=== PATIENT | male | born 1940 | race Caucasian/White ===

== ENCOUNTER → 2016-08-26 | Outpatient (CLI) | payer MEDICARE ==
[~2016-08-26] MED LIST: ASCO500T20 PO; ASP325T PO; BICA50TA PO; CARV6.252 PO; DOCU100C37 PO; E400C PO; FLUO20CA42 PO; HYDR25TA4 PO; LOSA1TAB3 PO; LUTE40CA PO; MULT-608 PO; NFAMINITAB PO; OMEG1CAP51 PO; SMV20T PO; WARF-48 PO; WARF7.5T49 PO
--- OUTSIDE RECORDS SUMMARY | 2016-08-26 13:06 | XMS REPORT | Continuity of Care Document ---
Author Author Interface Organization Interface Address Unknown Phone Unavailable Problems Problem Status Onset Date Classification Date Reported Comments Source No data available for this section Problem 08/24/2016 [facility]. No data available for this section Problem 03/20/2016 [facility]. Paroxysmal atrial fibrillation (disorder) 03/29/2016 Diagnosis 04/02/2016 [facility]. Moderate chronic obstructive pulmonary disease (disorder) 03/29/2016 Diagnosis 04/02/2016 [facility]. Solitary nodule of lung (finding) 03/29/2016 Diagnosis [facility]. Standard chest X-ray abnormal (finding) 03/29/2016 Diagnosis 04/02/2016 [facility]. Elevated diaphragm (disorder) 04/06/2016 Diagnosis 2015 [facility]. Standard chest X-ray abnormal (finding) 04/06/2016 Diagnosis 04/10/2016 [facility]. Obstructive sleep apnea syndrome (disorder) 04/06/2016 Diagnosis 04/10/2016 [facility]. Dyspnea (finding) 2015 Diagnosis 04/10/2016 [facility]. Degenerative disorder of macula (disorder) 01/05/2016 Diagnosis 01/09/2016 [facility]. Dyspnea (finding) 2015 Diagnosis 01/09/2016 [facility]. Malignant tumor of prostate (disorder) 01/05/2016 Diagnosis 01/09/2016 [facility]. Benign essential hypertension (disorder) 01/05/2016 Diagnosis 01/09/2016 [facility]. Obstructive sleep apnea syndrome (disorder) 01/05/2016 Diagnosis 01/09/2016 [facility]. Pulmonary embolism (disorder) 01/05/2016 Diagnosis 2015 [facility]. Coronary arteriosclerosis (disorder) 01/05/2016 Diagnosis 01/09/2016 [facility]. Abdominal aortic aneurysm (disorder) 01/05/2016 Diagnosis 01/09/2016 [facility]. Coronary arteriosclerosis (disorder) 03/21/2016 Diagnosis 03/25/2016 [facility]. Malignant tumor of prostate (disorder) 03/21/2016 Diagnosis 03/25/2016 [facility]. Benign essential hypertension (disorder) 03/21/2016 Diagnosis 03/25/2016 [facility]. Acute upper respiratory infection (disorder) 07/20/2016 Diagnosis 07/24/2016 [facility]. Medications Medication Details Route Status Patient Instructions Ordering Provider Order Date Source No Known Medications No known medications Active [facility]. Allergies, Adverse Reactions, Alerts Substance Category Reaction Severity Reaction type Status Date Reported Comments Source Immunizations Immunization Date Given Site Status Last Updated Comments Source No data available for this section No data available for this section [facility]. influenza virus vaccine 03/21/2016 [facility] influenza virus vaccine [facility]. influenza virus vaccine 03/21/2016 [facility] influenza virus vaccine [facility]. No data available for this section No data available for this section [facility]. influenza virus vaccine 03/21/2016 Right [facility] influenza virus vaccine [facility]. Results Order Name Results Value Reference Range Date Interpretation Comments Source Vital Signs Vital Sign Value Date Comments Source Encounters Location Location Details Encounter Type Encounter Number Reason For Visit Attending Provider ADM Date DC Date Status Source CPM [id number] Clinic ( Outpatient) [id number] Vasu Cui 01/05/2016 Active [facility] CPM [id number] Clinic ( Outpatient) [id number] 01/05/2016 Active [facility] [id number] Clinic ( Outpatient) [id number] Vasu Cui 02/23/2016 Active [facility] CPM [id number] Clinic ( Outpatient) [id number] Vasu Cui 02/23/2016 Active [facility]PM [id number] Clinic ( Outpatient) [id number] Vasu Cui 03/29/2016 Active [facility] [id number] Clinic ( Outpatient) [id number] Jorge Luis Anguiano 03/16/2016 Active [facility] [id number] Clinic ( Outpatient) [id number] Jorge Luis Anguiano 03/21/2016 Active [facility] [id number] Clinic ( Outpatient) [id number] Jorge Luis Anguiano 09/12/2016 Active [facility]PM [id number] Clinic ( Outpatient) [id number] Irby Staples 10/11/2016 Active [facility] [id number] Clinic ( Outpatient) [id number] Irby Staples 08/18/2016 Active [facility] [id number] Outpatient [id number] Vasu Cui 01/05/2016 01/05/2016 Active [facility] [id number] Outpatient [id number] Vasu Cui 03/15/2016 03/15/2016 Active [facility] [id number] Day Surgery [id number] Irby Staples 04/06/2016 04/06/2016 Active [facility] [id number] Vasu Cui 02/23/2016 01/06/2016 [facility] [id number] Vasu Cui 03/29/2016 03/30/2016 [facility] Out[facility] [id number] Irby Staples 04/06/2016 04/07/2016 [facility] [id number] Vasu Cui 01/05/2016 01/06/2016 [facility] [id number] Vasu Cui 03/15/2016 03/17/2016 [facility]. [facility] [id number] Jorge Luis Anguiano 03/21/2016 03/22/2016 [facility]. [facility] Cancel/No Show [id number] Vasu Cui 02/23/2016 02/23/2016 [facility]. [facility] Outpatient [id number] Vasu Cui 01/05/2016 01/06/2016 [facility] Cancel/No Show [id number] 01/05/2016 01/05/2016 [facility]. [facility] CD:[id number] Clinic ( Outpatient) [id number] Jorge Luis Anguiano 07/20/2016 Active [facility] Cancel/No Show [id number] Irby Staples 08/18/2016 08/20/2016 [facility] [id number] Jorge Luis Anguiano 07/20/2016 07/21/2016 [facility] Procedures Procedure Code Date Perfomer Comments Source No data available for this section [facility]. Bronchoscopy With Possible Biopsies 04/06/2016 [facility]. Pacemaker implant 2010 [facility]. prostate surgery 04/26/2010 [facility]. UPPP [facility]. open heart 12/25/2010 [facility].
[2016-08-26 13:17] LABS: BASOPHILS % (AUTO) 0 % (0-10); EOSINOPHILS # (AUTO) 0.2 10^3/uL (0.0-0.3); EOSINOPHILS % (AUTO) 3 % (0-10); LYMPHOCYTES # (AUTO) 1.2 X 10^3 (1.0-4.0); LYMPHOCYTES % (AUTO) 23 % (12-44); MEAN CORPUSCULAR HEMOGLOBIN 32 PG (25-34); MEAN CORPUSCULAR HGB CONC 34 G/DL (32-36); MEAN CORPUSCULAR VOLUME 94 FL (80-99); MEAN PLATELET VOLUME 8.7 FL (7.4-10.4); MONOCYTES # (AUTO) 0.5 X 10^3 (0.0-1.0); MONOCYTES % (AUTO) 10 % (0-12); NEUTROPHILS # (AUTO) 3.3 X 10^3 (1.8-7.8); NEUTROPHILS % (AUTO) 64 % (42-75); PLATELET COUNT 146 10^3/uL (130-400); RED BLOOD COUNT 4.23 10^6/uL (4.35-5.85); RED CELL DISTRIBUTION WIDTH 13.8 % (10.0-14.5); WHITE BLOOD COUNT 5.1 10^3/uL (4.3-11.0)
[2016-08-26 13:37] LABS: ALANINE AMINOTRANSFERASE 14 U/L (0-55); ALBUMIN 3.9 G/DL (3.2-4.5); ANION GAP 10 MMOL/L (5-14); ASPARTATE AMINO TRANSFERASE 20 U/L (5-34); BILIRUBIN,TOTAL 0.6 MG/DL (0.1-1.0); BLOOD UREA NITROGEN 23 MG/DL (7-18); BUN/CREATININE RATIO 22; CALCIUM 9.3 MG/DL (8.5-10.1); CARBON DIOXIDE 27 MMOL/L (21-32); CHLORIDE 105 MMOL/L (98-107); CREATININE SERUM 1.06 MG/DL (0.60-1.30); GFR ESTIMATED > 60; GLUCOSE 106 MG/DL (70-105); POTASSIUM 4.1 MMOL/L (3.6-5.0); SODIUM 142 MMOL/L (135-145); TOTAL PROTEIN 7.1 G/DL (6.4-8.2)
== END ==
LOC: EDSTATUS 05-25 12:59 → ONC 13:01
PROVIDERS: ATTEND Internal Medicine Hematology & Oncology
DX: C61 Malignant neoplasm of prostate (principal); C77.9 Secondary and unspecified malignant neoplasm of lymph node, unspecified; D64.9 Anemia, unspecified; I72.3 Aneurysm of iliac artery; Z79.899 Other long term (current) drug therapy
CPT/HCPCS: 36415; 80053; 84153; 85025

== ENCOUNTER → 2016-08-30 | Outpatient (CLI) | payer MEDICARE | LOC: FS 13:27 | PROVIDERS: ATTEND Internal Medicine Hematology & Oncology | DX: C61 Malignant neoplasm of prostate (principal); C77.9 Secondary and unspecified malignant neoplasm of lymph node, unspecified; D64.9 Anemia, unspecified; I72.3 Aneurysm of iliac artery; I10 Essential (primary) hypertension; Z79.899 Other long term (current) drug therapy; Z79.01 Long term (current) use of anticoagulants | CPT/HCPCS: 96402; 99213 ==

== ENCOUNTER → 2016-11-22 | Outpatient (CLI) | payer MEDICARE ==
[~2016-11-22] MED LIST changes: +LEUPROLIDE 45 MG ELIGARD SUSP SQ SCH
== END ==
LOC: FS 13:46
PROVIDERS: ATTEND Internal Medicine Hematology & Oncology
DX: C61 Malignant neoplasm of prostate (principal); C77.9 Secondary and unspecified malignant neoplasm of lymph node, unspecified; D64.9 Anemia, unspecified; I72.3 Aneurysm of iliac artery; I10 Essential (primary) hypertension; Z79.899 Other long term (current) drug therapy; Z79.01 Long term (current) use of anticoagulants
CPT/HCPCS: 96402; 99213

== ENCOUNTER → 2017-05-10 | Outpatient (CLI) | payer MEDICARE ==
[2017-05-10 11:14] LABS: BASOPHILS % (AUTO) 0 % (0-10); EOSINOPHILS # (AUTO) 0.2 10^3/uL (0.0-0.3); EOSINOPHILS % (AUTO) 4 % (0-10); LYMPHOCYTES # (AUTO) 1.2 X 10^3 (1.0-4.0); LYMPHOCYTES % (AUTO) 26 % (12-44); MEAN CORPUSCULAR HEMOGLOBIN 31 PG (25-34); MEAN CORPUSCULAR HGB CONC 33 G/DL (32-36); MEAN CORPUSCULAR VOLUME 94 FL (80-99); MONOCYTES # (AUTO) 0.4 X 10^3 (0.0-1.0); MONOCYTES % (AUTO) 9 % (0-12); NEUTROPHILS # (AUTO) 2.8 X 10^3 (1.8-7.8); NEUTROPHILS % (AUTO) 61 % (42-75); PLATELET COUNT 118 10^3/uL (130-400); RED BLOOD COUNT 3.97 10^6/uL (4.35-5.85); RED CELL DISTRIBUTION WIDTH 14.9 % (10.0-14.5); WHITE BLOOD COUNT 4.6 10^3/uL (4.3-11.0)
[2017-05-10 11:35] LABS: ALANINE AMINOTRANSFERASE 19 U/L (0-55); ALBUMIN 3.5 GM/DL (3.2-4.5); ANION GAP 7 MMOL/L (5-14); ASPARTATE AMINO TRANSFERASE 22 U/L (5-34); BILIRUBIN,TOTAL 0.8 MG/DL (0.1-1.0); BLOOD UREA NITROGEN 16 MG/DL (7-18); BUN/CREATININE RATIO 17; CALCIUM 9.1 MG/DL (8.5-10.1); CARBON DIOXIDE 28 MMOL/L (21-32); CHLORIDE 105 MMOL/L (98-107); CREATININE SERUM 0.92 MG/DL (0.60-1.30); GFR ESTIMATED > 60; GLUCOSE 124 MG/DL (70-105); SODIUM 140 MMOL/L (135-145); TOTAL PROTEIN 6.7 GM/DL (6.4-8.2)
== END ==
LOC: ONC 10:55
PROVIDERS: ATTEND Internal Medicine Hematology & Oncology
DX: C61 Malignant neoplasm of prostate (principal)
CPT/HCPCS: 36415; 80053; 84153; 85025; 96402

== ENCOUNTER → 2017-10-03 | Outpatient (CLI) | payer MEDICARE | LOC: ONC 14:12 | PROVIDERS: ATTEND Internal Medicine Hematology & Oncology | DX: C61 Malignant neoplasm of prostate (principal); C77.9 Secondary and unspecified malignant neoplasm of lymph node, unspecified; D64.9 Anemia, unspecified; I10 Essential (primary) hypertension; Z79.01 Long term (current) use of anticoagulants; Z79.899 Other long term (current) drug therapy | CPT/HCPCS: 99213 ==

== ENCOUNTER 2017-10-24 09:25 | Outpatient (RCR) | payer MEDICARE ==
[~2017-10-24 09:25] MED LIST changes: -BICA50TA PO; +BICA50TA5 PO; -LEUPROLIDE 45 MG ELIGARD SUSP SQ SCH
[2017-10-24] MEDS ORDERED: LEUPROLIDE 45 MG ELIGARD SUSP SQ SCH (09:30)
== END 2018-01-22 | disposition home or self-care (01) ==
LOC: ONC 09:25
PROVIDERS: ATTEND Internal Medicine Hematology & Oncology
DX: C61 Malignant neoplasm of prostate (principal); C77.9 Secondary and unspecified malignant neoplasm of lymph node, unspecified; D64.9 Anemia, unspecified; I10 Essential (primary) hypertension; Z79.01 Long term (current) use of anticoagulants; Z79.899 Other long term (current) drug therapy
CPT/HCPCS: 96402

== ENCOUNTER 2018-04-26 09:41 | Outpatient (RCR) | payer MEDICARE ==
[~2018-04-26 09:41] MED LIST changes: +LEUPROLIDE 45 MG ELIGARD SUSP SQ SCH
== END 2018-07-25 | disposition home or self-care (01) ==
LOC: ONC 09:41
PROVIDERS: ATTEND Internal Medicine Hematology & Oncology
DX: C61 Malignant neoplasm of prostate (principal); C77.9 Secondary and unspecified malignant neoplasm of lymph node, unspecified; D69.6 Thrombocytopenia, unspecified; D64.9 Anemia, unspecified; I10 Essential (primary) hypertension; Z79.01 Long term (current) use of anticoagulants; Z79.899 Other long term (current) drug therapy
CPT/HCPCS: 36415; 84153; 96402

== ENCOUNTER → 2018-10-04 | Outpatient (CLI) | payer MEDICARE ==
[~2018-10-04] MED LIST changes: +CATHETER FLUSH 10 ML SYR IV PRN; +HOLD METFORMIN - RECEIVED CONTRAST 20 ML VIAL IV SCH; +IOHEXOL 350 MG/ML 100 ML (OMNIPAQUE 350) VIAL IV ONE; -LEUPROLIDE 45 MG ELIGARD SUSP SQ SCH; +NS 50 ML (IVPB) BAG IV ONE
--- NOTE | 2018-10-04 15:32 | Diagnostic Imaging Report ---
PROCEDURE: CT abdomen with and without contrast. TECHNIQUE: Multiple contiguous axial CT images of the abdomen were obtained prior to and after intravenous administration of iodinated contrast. Auto Exposure Controls were utilized during the CT exam to meet ALARA standards for radiation dose reduction. INDICATION: Elevated liver enzymes. COMPARISON: Comparison made with prior examination from 05/18/2015. FINDINGS: There is some left basilar subsegmental atelectasis and/or pneumonitis. There is a trace left pleural effusion. The liver is normal in size and without focal lesions. The gallbladder is unremarkable. There is no biliary ductal dilatation. Spleen is normal. The pancreas and adrenal glands are unremarkable. There is a right renal cyst. There is a stent graft in the abdominal aorta. The aneurysm sac has increased in size since the prior examination and now measures 5.2 cm just above the aortic bifurcation. This is compared to the previous measurement of 4 cm. There is no free air. There is no ascites. There are no focal inflammatory changes. There are degenerative changes in the spine. IMPRESSION: Minimal left basilar subsegmental atelectasis and/or pneumonitis and a trace left pleural effusion. Interval increase in size of the aortic aneurysm sac just above the aortic bifurcation up to 5.2 cm. This is compared to the previous measurement of 4 cm. Small or slow endoleak cannot be excluded. Recommend clinical correlation. Small bilateral renal cysts. No other acute abnormality in the abdomen or pelvis. Dictated by: Dictated on workstation # [id number]
== END ==
LOC: RAD FS 11:03
PROVIDERS: ATTEND Family Medicine
DX: R74.8 Abnormal levels of other serum enzymes (principal)
CPT/HCPCS: 74170

== ENCOUNTER → 2018-10-24 | Outpatient (CLI) | payer MEDICARE ==
[~2018-10-24] MED LIST changes: -CATHETER FLUSH 10 ML SYR IV PRN; -HOLD METFORMIN - RECEIVED CONTRAST 20 ML VIAL IV SCH; -IOHEXOL 350 MG/ML 100 ML (OMNIPAQUE 350) VIAL IV ONE; -NS 50 ML (IVPB) BAG IV ONE
[2018-10-24 09:30] LABS: INR 1.7 (0.8-1.4); PROTHROMBIN TIME PATIENT 20.4 SEC (12.2-14.7)
== END ==
LOC: LAB 08:59
PROVIDERS: ATTEND Family Medicine
DX: Z51.81 Encounter for therapeutic drug level monitoring (principal); Z79.01 Long term (current) use of anticoagulants; Z79.899 Other long term (current) drug therapy
CPT/HCPCS: 36415; 85610

== ENCOUNTER → 2018-11-29 | Outpatient (CLI) | payer MEDICARE ==
--- NOTE | 2018-11-29 16:19 | Diagnostic Imaging Report ---
INDICATION: Atherosclerotic disease. TECHNIQUE: Grayscale, color-flow, and duplex Doppler evaluation of bilateral upper extremity arterial systems was performed. FINDINGS: Predominantly triphasic waveforms throughout the right upper extremity arterial system are seen with the exception of biphasic waveforms in the distal radial artery. Velocities appear to be normal. There are predominantly biphasic waveforms in the left upper extremity arterial system apart from a segment of monophasic flow in the proximal brachial artery. Velocities appear to be normal throughout the left upper extremity arterial system. No high-grade stenosis or occlusion is identified. IMPRESSION: Essentially unremarkable bilateral upper extremity arterial Doppler. Dictated by: Dictated on workstation # [id number]
== END ==
LOC: RAD FS 08:59
PROVIDERS: ATTEND Family Medicine
DX: I25.10 Atherosclerotic heart disease of native coronary artery without angina pectoris (principal)
CPT/HCPCS: 93930

== ENCOUNTER 2019-05-02 09:47 | Outpatient (RCR) | payer MEDICARE ==
[~2019-05-02 09:47] MED LIST changes: +LEUPROLIDE 45 MG ELIGARD SQ SCH
[2019-05-02 10:01] LABS: BASOPHILS % (AUTO) 0 % (0-10); EOSINOPHILS # (AUTO) 0.2 10^3/uL (0.0-0.3); EOSINOPHILS % (AUTO) 3 % (0-10); HEMATOCRIT 38 % (40-54); HEMOGLOBIN 12.6 G/DL (13.3-17.7); LYMPHOCYTES # (AUTO) 1.2 X 10^3 (1.0-4.0); LYMPHOCYTES % (AUTO) 19 % (12-44); MEAN CORPUSCULAR HEMOGLOBIN 32 PG (25-34); MEAN CORPUSCULAR HGB CONC 33 G/DL (32-36); MEAN CORPUSCULAR VOLUME 95 FL (80-99); MEAN PLATELET VOLUME 8.5 FL (7.4-10.4); MONOCYTES # (AUTO) 0.6 X 10^3 (0.0-1.0); MONOCYTES % (AUTO) 9 % (0-12); NEUTROPHILS # (AUTO) 4.4 X 10^3 (1.8-7.8); NEUTROPHILS % (AUTO) 69 % (42-75); PLATELET COUNT 109 10^3/uL (130-400); RED CELL DISTRIBUTION WIDTH 13.6 % (10.0-14.5); WHITE BLOOD COUNT 6.4 10^3/uL (4.3-11.0)
[2019-05-02 10:21] LABS: ALANINE AMINOTRANSFERASE 13 U/L (0-55); ALBUMIN 3.7 GM/DL (3.2-4.5); ALKALINE PHOSPHATASE 243 U/L (40-136); BILIRUBIN,TOTAL 0.6 MG/DL (0.1-1.0); BUN/CREATININE RATIO 17; CALCIUM 9.2 MG/DL (8.5-10.1); CARBON DIOXIDE 28 MMOL/L (21-32); CHLORIDE 106 MMOL/L (98-107); CREATININE SERUM 1.03 MG/DL (0.60-1.30); GFR ESTIMATED > 60; GLUCOSE 132 MG/DL (70-105); POTASSIUM 4.4 MMOL/L (3.6-5.0); SODIUM 141 MMOL/L (135-145); TOTAL PROTEIN 6.7 GM/DL (6.4-8.2)
== END 2019-07-31 | disposition home or self-care (01) ==
LOC: ONC 09:47
PROVIDERS: ATTEND Internal Medicine Hematology & Oncology
DX: C61 Malignant neoplasm of prostate (principal); C77.9 Secondary and unspecified malignant neoplasm of lymph node, unspecified; D69.6 Thrombocytopenia, unspecified; D64.9 Anemia, unspecified; I10 Essential (primary) hypertension; Z79.01 Long term (current) use of anticoagulants; Z79.899 Other long term (current) drug therapy
CPT/HCPCS: 36415; 80053; 84153; 85025; 96402

== ENCOUNTER → 2019-11-21 | Outpatient (CLI) | payer MEDICARE ==
[~2019-11-21] MED LIST changes: +LEVO750T9 PO
== END ==
LOC: EDSTATUS 08-01 14:48 → ONC 09:57
PROVIDERS: ATTEND Internal Medicine Hematology & Oncology
DX: C61 Malignant neoplasm of prostate (principal); C77.9 Secondary and unspecified malignant neoplasm of lymph node, unspecified; D69.6 Thrombocytopenia, unspecified; D64.9 Anemia, unspecified; I10 Essential (primary) hypertension; Z79.01 Long term (current) use of anticoagulants; Z79.899 Other long term (current) drug therapy
CPT/HCPCS: 84153; 96402

== ENCOUNTER 2019-11-22 12:17 | Emergency (ER) | payer MEDICARE ==
[~2019-11-22] VITALS: Ht 185.4 cm; Wt 109.5 kg
[~2019-11-22 12:17] MED LIST changes: -LEUPROLIDE 45 MG ELIGARD SQ SCH; -LEVO750T9 PO
[2019-11-22 12:41] LABS: HEMATOCRIT 39 % (40-54); HEMOGLOBIN 12.7 G/DL (13.3-17.7); LYMPHOCYTES % (AUTO) 27 % (12-44); MEAN CORPUSCULAR HEMOGLOBIN 31 PG (25-34); MEAN CORPUSCULAR HGB CONC 33 G/DL (32-36); MEAN CORPUSCULAR VOLUME 95 FL (80-99); MONOCYTES % (AUTO) 9 % (0-12); NEUTROPHILS % (AUTO) 60 % (42-75); PLATELET COUNT 104 10^3/uL (130-400); RED CELL DISTRIBUTION WIDTH 13.6 % (10.0-14.5); WHITE BLOOD COUNT 5.2 10^3/uL (4.3-11.0)
[2019-11-22 12:42] LABS: BASOPHILS % (AUTO) 0 % (0-10); EOSINOPHILS # (AUTO) 0.2 10^3/uL (0.0-0.3); EOSINOPHILS % (AUTO) 3 % (0-10); LYMPHOCYTES # (AUTO) 1.4 X 10^3 (1.0-4.0); MONOCYTES # (AUTO) 0.5 X 10^3 (0.0-1.0); NEUTROPHILS # (AUTO) 3.1 X 10^3 (1.8-7.8)
--- NOTE | 2019-11-22 12:48 | ED Dyspnea ---
General Chief Complaint: Respiratory Problems Stated Complaint: SOB Source of Information: Patient Exam Limitations: No Limitations History of Present Illness Date Seen by Provider: November 22, 2019 Time Seen by Provider: 12:30 Initial Comments The patient is a pleasant 79-year-old male who presents for evaluation of shortness of breath over the last 3 days. He denies any other symptoms and states that his shortness of breath is worse with exertion and gets better at rest. He does have a history of pulmonary embolism and currently takes Coumadin. He denies fevers or chills, diaphoresis, nausea, cough, chest pain, abdominal or back pain, palpitations, or syncope. He has had some lightheadedness as well. Additionally he is status post CABG. He is alert and oriented 4, calm, and appears to be in no distress at this time. Modifying Factors: Improves With Activity (makes it worse); Worse With Coughing; Improves With Rest (helps) Associated Symptoms: Lightheadedness Allergies and Home Medications Allergies Coded Allergies: Penicillins (Verified Allergy, Unknown, 01/11/16) Sulfa (Sulfonamide Antibiotics) (Verified Allergy, Unknown, 01/11/16) Home Medications Bicalutamide 50 Mg Tablet, 50 MG PO DAILY, (Reported) Carvedilol 6.25 Mg Tablet, 6.25 MG PO BID, (Reported) Docusate Sodium 100 Mg Capsule, 100 MG PO BID, (Reported) Fluoxetine HCl 20 Mg Capsule, 20 MG PO DAILY, (Reported) Hydrochlorothiazide 25 Mg Tablet, 25 MG PO DAILY, (Reported) Lutein 40 Mg Capsule, 40 MG PO DAILY, (Reported) Multivitamins 1 Tab Tablet, 1 TAB PO DAILY, (Reported) Pinson-3 Fatty Acids/Fish Oil 1 Each Capsule, 1 EACH PO DAILY, (Reported) Simvastatin 20 Mg Tab, 20 MG PO DAILY, (Reported) Vitamin E Acetate 400 Unit Capsule, 400 UNIT PO DAILY, (Reported) Warfarin Sodium 7.5 Mg Tablet, 7.5 MG PO -, (Reported) Warfarin Sodium 5 Mg Tablet, 5 MG PO SAT & SUN, (Reported) Patient Home Medication List Home Medication List Reviewed: Yes Review of Systems Review of Systems Constitutional: no symptoms reported Respiratory: No cough, No hemoptysis; short of breath; No stridor, No wheezing Cardiovascular: no symptoms reported Gastrointestinal: no symptoms reported Genitourinary: no symptoms reported Musculoskeletal: no symptoms reported Skin: no symptoms reported Psychiatric/Neurological: No Symptoms Reported Endocrine: No Symptoms Reported Hematologic/Lymphatic: No Symptoms Reported All Other Systems Reviewed Negative Unless Noted: Yes Past Kiqkqaz-Wgayrj-Ylqijq Hx Past Med/Social Hx: Reviewed Nursing Past Med/Soc Hx Patient Social History Type Used: Cigarettes Former Smoker, Quit: Jun 26, 1995 Recent Foreign Travel: No Contact w/Someone Who Travel: No Immunizations Up To Date Date of Pneumonia Vaccine: Mar 28, 2011 Past Medical History Reproductive Disorders: No Physical Exam Vital Signs Vital Signs - First Documented 11/22/19 12:20 Temp 35.8 Pulse 65 Resp 18 B/P (MAP) 141/98 (112) Pulse Ox 98 Capillary Refill : Height, Weight, BMI Height: 6'2.00" Weight: 230lbs. 0.0oz. [id number]; 29.5 BMI Method: General Appearance: No Apparent Distress, WD/WN HEENT: PERRL/EOMI, Pharynx Normal Neck: Full Range of Motion, Normal Inspection, Supple Respiratory: Lungs Clear, Normal Breath Sounds, No Accessory Muscle Use, No Respiratory Distress Cardiovascular: Regular Rate, Rhythm, No Edema, No JVD Gastrointestinal: Normal Bowel Sounds, No Pulsatile Mass, Non Tender, Soft Extremity: Normal Capillary Refill, Non Tender, No Calf Tenderness Neurologic/Psychiatric: Alert, Oriented x3, No Motor/Sensory Deficits, Normal Mood/Affect Skin: Normal Color, Warm/Dry Focused Exam Lactate Level 11/22/19 12:38: Lactic Acid Level 1.23 Lactic Acid Level Laboratory Tests Test 11/22/19 12:38 Lactic Acid Level 1.23 MMOL/L (0.50-2.00) Progress/Results/Core Measures Results/Orders Lab Results Laboratory Tests Test 11/22/19 12:30 11/22/19 12:38 Range/Units White Blood Count 5.2 4.3-11.0 10^3/uL Red Blood Count 4.04 L 4.35-5.85 10^6/uL Hemoglobin 12.7 L 13.3-17.7 G/DL Hematocrit 39 L 40-54 % Mean Corpuscular Volume 95 80-99 FL Mean Corpuscular Hemoglobin 31 25-34 PG Mean Corpuscular Hemoglobin Concent 33 32-36 G/DL Red Cell Distribution Width 13.6 10.0-14.5 % Platelet Count 104 L 130-400 10^3/uL Mean Platelet Volume 9.0 7.4-10.4 FL Neutrophils (%) (Auto) 60 42-75 % Lymphocytes (%) (Auto) 27 12-44 % Monocytes (%) (Auto) 9 0-12 % Eosinophils (%) (Auto) 3 0-10 % Basophils (%) (Auto) 0 0-10 % Neutrophils # (Auto) 3.1 1.8-7.8 X 10^3 Lymphocytes # (Auto) 1.4 1.0-4.0 X 10^3 Monocytes # (Auto) 0.5 0.0-1.0 X 10^3 Eosinophils # (Auto) 0.2 0.0-0.3 10^3/uL Basophils # (Auto) 0.0 0.0-0.1 10^3/uL Prothrombin Time 22.2 H 12.2-14.7 SEC INR Comment 1.9 H 0.8-1.4 D-Dimer 13.87 H 0.00-0.49 UG/ML Sodium Level 142 135-145 MMOL/L Potassium Level 4.6 3.6-5.0 MMOL/L Chloride Level 102 98-107 MMOL/L Carbon Dioxide Level 28 21-32 MMOL/L Anion Gap 12 5-14 MMOL/L Blood Urea Nitrogen 18 7-18 MG/DL Creatinine 1.06 0.60-1.30 MG/DL Estimat Glomerular Filtration Rate > 60 BUN/Creatinine Ratio 17 Glucose Level 98 70-105 MG/DL Calcium Level 9.5 8.5-10.1 MG/DL Corrected Calcium 9.7 8.5-10.1 MG/DL Magnesium Level 2.2 1.6-2.4 MG/DL Total Bilirubin 0.4 0.1-1.0 MG/DL Aspartate Amino Transf (AST/SGOT) 19 5-34 U/L Alanine Aminotransferase (ALT/SGPT) 9 0-55 U/L Alkaline Phosphatase 284 H 40-136 U/L Troponin I < 0.30 <0.30 NG/ML Pro-B-Type Natriuretic Peptide 3914.0 H <75.0 PG/ML Total Protein 6.8 6.4-8.2 GM/DL Albumin 3.8 3.2-4.5 GM/DL Lactic Acid Level 1.23 0.50-2.00 MMOL/L My Orders Orders - ANETTE CHACON DO Cbc With Automated Diff (11/22/19 12:26) Comprehensive Metabolic Panel (11/22/19 12:26) Blood Culture (11/22/19 12:26) Chest 1 View Ap/Pa Only (11/22/19 12:26) Magnesium (11/22/19 12:26) Ekg Tracing (11/22/19 12:) O2 (11/22/19 12:) Ed Iv/Invasive Line Start (11/22/19 12:26) Monitor-Rhythm Ecg Trace Only (11/22/19 12:) Lactic Acid Analyzer (11/22/19 12:) Troponin I Fs (11/22/19 12:) Probnp Fs (11/22/19 12:) Fibrin Degradation Products (11/22/19 12:29) Protime With Inr (11/22/19 12:36) Furosemide Injection (Lasix Injection) (11/22/19 13:45) Ct Angio Chest W (11/22/19 14:00) Iohexol Injection (Omnipaque 350 Mg/Ml 1 (11/22/19 14:30) Received Contrast (Hold Metformin- Contr (11/22/19 14:30) Sodium Chloride Flush (Catheter Flush Sy (11/22/19 14:30) Ns (Ivpb) (Sodium Chloride 0.9% Ivpb Bag (11/22/19 14:30) Levofloxacin 750 Mg/150 Ml Iv (Levaquin (11/22/19 16:00) Medications Given in ED Current Medications Medications Dose Ordered Sig/Lilliam Route Start Time Stop Time Status Last Admin Dose Admin Furosemide 40 mg ONCE ONCE IVP 11/22/19 13:45 11/22/19 13:46 DC 11/22/19 13:51 40 MG Iohexol 150 ml ONCE ONCE IV 11/22/19 14:30 11/22/19 14:31 DC 11/22/19 15:02 125 ML Sodium Chloride 10 ml NEEDED PRN IV 11/22/19 14:30 11/22/19 15:02 10 ML Sodium Chloride 100 ml ONCE ONCE IV 11/22/19 14:30 11/22/19 14:31 DC 11/22/19 15:02 80 ML Vital Signs/I&O 11/22/19 12:20 Temp 35.8 Pulse 65 Resp 18 B/P (MAP) 141/98 (112) Pulse Ox 98 Progress Progress Note : Progress Note @1602 - there is evidence of a left lower lobe pneumonia on the patient's CT chest. This does fit his symptoms. Additionally he has an elevation of his BNP but no sign on the chest x-ray or CT scan of pulmonary edema. He is saturating very well on room air and is in no respiratory distress. I did offer admission however the patient declined stating that he feels fine to go home. He'll go home with antibiotics and close follow-up with his PCP in the next 1-2 days. He expresses verbal understanding and agreement with the plan and is stable for discharge home. Comment @1226 - ventricular paced rhythm, rate of 65, left axis deviation,, no acute ischemic findings noted, no STEMI, reviewed and interpreted by myself Diagnostic Imaging Diagonstic Imaging: Xray, CT Comments [facility] [place], [place] NAME: ERIC FIGUEROA Sridhar [facility] REC#: [id number] PT STATUS: REG ER : 1940 PHYSICIAN: ANETTE CHACON DO ADMIT DATE: 11/22/19/ER FS Draft Date of Exam:11/22/19 CHEST 1 VIEW AP/PA ONLY EXAMINATION: Chest 1 view HISTORY: Shortness of breath. COMPARISON: None available. FINDINGS: Median sternotomy wires are aligned. Left subclavian pacemaker is present. There is elevation of left hemidiaphragm. Heart is moderately enlarged. There is no pneumothorax. No edema or pneumonia. IMPRESSION: 1. Elevated left hemidiaphragm and enlarged heart. Dictated on workstation # [id number] Dict: 11/22/19 1252 Trans: 11/22/19 1256 [facility] [id number] Interpreted by: ZAYDA MCNEAL MD Electronically signed by: [facility], [place] NAME: ERIC FIGUEROA [facility] REC#: [id number] PT STATUS: REG ER : 1940 PHYSICIAN: ANETTE CHACON DO ADMIT DATE: 11/22/19/ER FS Draft Date of Exam:11/22/19 CT ANGIO CHEST W EXAMINATION: CT angiography of the chest. TECHNIQUE: Contrast enhanced thin section helical images were obtained through the chest with intravenous contrast timed for the optimal opacification of the arterial structures per CTA protocol. Post-processing, reconstructions and interpretation of angiographic images of the vessels was performed. 3D MIP reconstructions were performed and reviewed. All CT scans use one or more of the following dose optimizing techniques: automated exposure control, MA and/or KvP adjustment based on a patient size and exam type, or iterative reconstruction. HISTORY: Shortness of breath. COMPARISON: 09/19/2014. FINDINGS: There is no pulmonary embolism. 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 There is consolidation of the posterior basilar segment of the left lower lobe concerning for pneumonia. No pleural effusion. No pneumothorax. No suspicious nodules. Heart size is normal. There are moderate coronary artery calcifications. No pericardial effusion. Aorta is normal in caliber. There is no axillary or supraclavicular lymphadenopathy. There is no mediastinal lymphadenopathy. There has been median sternotomy for coronary artery bypass grafting. Limited views of the upper abdomen are unremarkable. There are no suspicious osseus lesions. IMPRESSION: 1. No pulmonary embolism. 2. Consolidation of the posterior basilar segment of the left lower lobe concerning for pneumonia. Dictated on workstation # [id number] Dict: 11/22/19 1513 Trans: 11/22/19 1519 [facility] [id number] Interpreted by: ZAYDA MCNEAL MD Electronically signed by: Departure Impression Primary Impression: Community acquired pneumonia Additional Impression: Elevated brain natriuretic peptide (BNP) level Disposition: 01 HOME, SELF-CARE Condition: Stable Departure-Patient Inst. Decision time for Depature: 16:04 Referrals: JUSTICE DRUMMOND MD (PCP/Family) Primary Care Physician Patient Instructions: Pneumonia, Adult (DC) Add. Discharge Instructions: Take the antibiotic as prescribed. This antibiotic can affect your INR that should return to normal after completing the course. As discussed your BNP was elevated and this should be followed up with your doctor. Follow-up with your doctor in the next 1-2 days. Return to the emergency department immediately for new or worsening symptoms. Scripts Levofloxacin (Levaquin) 750 Mg Tablet 750 MG PO DAILY for 5 Days, #5 TAB Prov: ANETTE CHACON DO 11/22/19 ANETTE CHACON DO November 22, 2019 12:48
--- NOTE | 2019-11-22 12:57 | Diagnostic Imaging Report ---
EXAMINATION: Chest 1 view HISTORY: Shortness of breath. COMPARISON: None available. FINDINGS: Median sternotomy wires are aligned. Left subclavian pacemaker is present. There is elevation of left hemidiaphragm. Heart is moderately enlarged. There is no pneumothorax. No edema or pneumonia. IMPRESSION: 1. Elevated left hemidiaphragm and enlarged heart. Dictated by: Dictated on workstation # [id number]
[2019-11-22 13:00] LABS: INR 1.9 (0.8-1.4); PROTHROMBIN TIME PATIENT 22.2 SEC (12.2-14.7)
--- OUTSIDE RECORDS SUMMARY | 2019-11-22 13:12 | XMS REPORT | Clinical Summary ---
Author Author [facility] Organization [facility] Address Unknown Phone Unavailable Care Team Providers Care Welder Gun Name Role Phone PCP Unavailable Allergies Not on File Medications Not on file Active Problems Not on file Social History Date Tobacco Use Types Packs/Day Years Used Never Assessed Sex Assigned at Date Recorded Not on file Industry Job Start Date Occupation Not on file Not on file Not on file Travel End Travel History Travel Start No recent travel history available. Last Filed Vital Signs Not on file Plan of Treatment Not on file Results Not on filefrom Last 3 Months
--- OUTSIDE RECORDS SUMMARY | 2019-11-22 13:12 | XMS REPORT | Clinical Summary ---
Author Author [facility] Organization [facility] Address Unknown Phone Unavailable Care Team Providers Care Veneer Sorter Name Role Phone Jorge Luis Anguiano MD PCP Source Comments Some departments are not documenting in the electronic medical record. If you d o not see the information that you expected, contact Release of Information in [facility] [employer] Information Management department at [phone] for further assistan ce in locating additional records.[facility] Allergies Comments Active Allergy Reactions Severity Noted Date Penicillins UNKNOWN Low Sulfa (Sulfonamide UNKNOWN Low Antibiotics) Medications End Date Status Medication Sig Dispensed Refills Start Date Active bicalutamide (CASODEX) 50 0 mg tablet 8 Active simvastatin (ZOCOR) 20 mg 0 tablet 7 Active fluoxetine (PROZAC) 20 mg 20 mg daily. 0 capsule 8 Active lisinopril (PRINIVIL; 20 mg twice 0 07/04/19 1 ZESTRIL) 10 mg tablet daily. 8 Active metoprolol XL (TOPROL XL) Take 25 mg by 0 25 mg extended release mouth daily. tablet Active warfarin (COUMADIN) 5 mg Take 5 mg by 0 tablet mouth daily. Active FLAXSEED OIL (OMEGA 3 PO) Take by 0 mouth. Active MULTIVITAMINS WITH Take by 0 FLUORIDE (MULTI-VITAMIN mouth. PO) Active lutein 40 mg cap Take 1 0 capsule by mouth twice daily. Active vitamin E 400 unit Take 400 0 capsule Units by mouth daily. 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 Last Filed Vital Signs Reading Time Taken Comments Vital Sign 154/95 11/16/2017 10:39 AM CDT Blood Pressure 62 11/16/2017 10:39 AM CDT Pulse 36.3 C (97.4 F) 11/16/2017 10:39 AM CDT Temperature 22 11/16/2017 10:39 AM CDT Respiratory Rate 92% 10/18/2017 11:20 AM CDT Oxygen Saturation - - Inhaled Oxygen Concentration 107 kg (236 lb) 11/16/2017 10:39 AM CDT Weight 188 cm (6' 2") 11/16/2017 10:39 AM CDT Height 30.3 11/16/2017 10:39 AM CDT Body Mass Index Plan of Treatment Health Maintenance Due Date Last Done Comments MEDICARE ANNUAL WELLNESS 1940 VISIT DTAP/TDAP VACCINES (1 - 1956 Tdap) PHYSICAL (COMPREHENSIVE) 1956 EXAM SHINGLES RECOMBINANT 1988 VACCINE (1 of 2) PNEUMONIA (PPSV23) 2003 VACCINE (1 of 1 - PPSV23) INFLUENZA VACCINE 03/26/2020 Implants Device Identifier Shelf Expiration Date Model / Serial / L ot Implanted Type Area Manufactur er Medtronic-09/26/2011 Pacemaker MEDNET Implanted: 09/26/2011 (Quantity not HEALTHCARE on file) TECHNOLOGI ES 02/26/2021 [id number] / [id number] / [id number] - [id number] Implanted: Qty: 1 on 10/17/2017 by Valdemar Haynes MD at [facility] Description:CHARGED BY INFORMATION TECHNOLOGY AUDITOR 02/26/2021 [id number] / [id number] / [id number] - [id number] Implanted: Qty: 1 on 10/17/2017 by Valdemar Haynes MD at [facility] Description:CHARGED BY INFORMATION TECHNOLOGY AUDITOR 07/16/2022 [id number] / [id number] / [id number] - [id number] Implanted: Qty: 2 on 10/17/2017 by Valdemar Haynes MD at [facility] Description:CHARGED BY INFORMATION TECHNOLOGY AUDITOR 08/23/2021 [id number] / [id number] / [id number] - [id number] Implanted: Qty: 1 on 10/17/2017 by Valdemar Haynes MD at [facility] Description:CHARGED BY INFORMATION TECHNOLOGY AUDITOR 12/25/2021 [id number] / [id number] / [id number] - [id number] Implanted: Qty: 1 on 10/17/2017 by CARDIOVASC Valdemar Haynes MD at [facility] 07/04/2019 [id number] / [id number] / [id number] Graft Stent 124mm 16-13mm 14fr UNIDENTIFI [employer] - ED [facility] [id number] Implanted: Qty: 1 on 10/17/2017 by Valdemar Haynes MD at [facility] Results Not on filefrom Last 3 Months Insurance Type Payer Benefit Subscriber ID Effective Phone Address Plan / Dates Group Medicare MEDICARE MEDICARE xxxxxxxxxx 2003- PART A AND Present B Medicare BCBS TAE BCBS xxxxxxxxxxxx 2017-P SUPPLEMENT resent Advance Directives Patient Cook Jelly Explanation Type Date Recorded Advance 10/17/2017 6:16 AM Directive/DPOA Date Inactivated Comments Code Status Date Activated 10/18/2017 2:19 PM Full Code 10/17/2017 7:49 AM Provider has discussed Code Status No, discussion no t w/Patient or Family? necessary based on Dx
--- OUTSIDE RECORDS SUMMARY | 2019-11-22 13:12 | XMS REPORT | Encounter Summary ---
Author Author [facility] Address Unknown Phone Unavailable Care Team Providers Care Ore Grader Name Role Phone PCP Unavailable Encounter Details Care Team Description [place] [address] [address] [phone] Macular cyst, [facility], [facility] pseudohole [facility] ret [facility] [address] 12/16/2011 [place] [address] Social History Date Tobacco Use Types Packs/Day Years Used Never Assessed Sex Assigned at Date Recorded Not on file Industry Job Start Date Occupation Not on file Not on file Not on file Travel End Travel History Travel Start No recent travel history available. documented as of this encounter H&P Notes * Nas Dejesus MD - 08/23/2013 9:04 PM LACQUER MIXER REPORT Name: ERIC FIGUEROA Date of : 1940 Attending Physician: NAS DEJESUS DATE OF ADMISSION: 12/15/2011. REASON FOR ADMISSION: Repair of macular hole in the left eye. CHIEF COMPLAINT: Mr. Figueroa is a most pleasant 71-year-old male with complaints of decreased vision and blurry vision for approximately 3-4 months. OCULAR HISTORY: Cataract surgery in both eyes approximately 5 years ago. Patient has age related macular degeneration and has received 3 Avastin treatments, two in the right eye in 2009 and 2010 and one in the left eye in 2011. PAST MEDICAL HISTORY: Hypertension diagnosed 17 years ago, heart disease diagnosed in 1999, aortic aneurysm 10 years ago, and prostate cancer diagnosed 2-3 years ago. PAST SURGICAL HISTORY: Multiple cardiac stents placed over the past 15 years, aorta stent placed 10 years ago, open heart surgery 12/25/2010, pacemaker in October 2010, and sinus surgery as a child. He also received radiation treatment for prostate cancer in March 2010. MEDICATIONS: 1. Lopressor. 2. Fluoxetine. 3. Simvastatin. 4. Fish oil. 5. Multivitamin. 6. Ocuvite. 7. Lisinopril. 8. Warfarin. ALLERGIES: PENICILLIN AND SULFA. FAMILY HISTORY: Sister is diabetic. SOCIAL HISTORY: Patient states he smoked for 30+ years but quit approximately 27 years ago. OCULAR EXAMINATION: The patient was seen at [facility] on 11/07/2011. Visual acuity in the right eye was 20/40 -2 and the left eye was 20/80 -3. Intraocular pressure in the right eye was 10 and in the left eye was 10. ANTERIOR EXAMINATION: Lids and lashes healthy both eyes. Conjunctiva had a trace injection in the right eye and a nasal temporal pinguecula with a 1+ injection left eye. Cornea was clear with 1+ arcus both eyes. Anterior chamber deep and quiet both eyes. Iris was normal both eyes. Lens posterior chamber intraocular lens both eyes. Vitreous 1+ strand in the right eye and trace strand in the left eye. FUNDUSCOPIC EXAMINATION RIGHT EYE: Cup-to-disk ratio 0.15 with temporal pallor. Macula was dry with drusen, pigment clumping, and an old pigment epithelial detachment that was flat. Periphery there were no holes or tears. FUNDUSCOPIC EXAMINATION LEFT EYE: Cup-to-disk ratio 0.2. Macular with full thickness macular hole with surrounding drusen and pigment clumping. Periphery with no holes or tears. PLAN: The patient is to be admitted to [facility]. After appropriate medical and laboratory clearance, the patient is to undergo a 25-gauge vitrectomy, membrane peeling, and air/fluid/gas exchange to the left eye under general anesthesia. Nas Dejesus MD Dictated By: ALEIDA Kirby Cc: UER MIXER documented in this encounter Miscellaneous Notes * Operative Note - Nas Dejesus MD - 08/23/2013 8:51 PM LACQUER MIXER REPORT Name: ERIC FIGUEROA Date of : 1940 Attending Physician: NAS DEJESUS DATE OF OPERATION: 12/15/2011. PREOPERATIVE DIAGNOSES: 1. Macular hole. 2. Preretinal fibrotic membrane. 3. Age-related macular degeneration. POSTOPERATIVE DIAGNOSES: 1. Macular hole. 2. Preretinal fibrotic membrane. 3. Age-related macular degeneration. 4. Retinal tear. PROCEDURES PERFORMED: 1. 25-gauge pars plana vitrectomy. 2. Membrane peeling. 3. Delamination of internal limiting membrane/maculorrhexis. 4. Endolaser photocoagulation. 5. Jxs-boxts-yja exchange. 6. Sub-Tenon steroid injection. COMPLICATIONS: None. ANESTHESIA: General endotracheal. SURGEON: Nas Dejesus MD DESCRIPTION OF PROCEDURE: After obtaining the proper informed consent, the patient was premedicated and was transported to the operating room. The patient was placed in the supine position, and with the appropriate cardiac monitoring and intravenous infusion lines, a general endotracheal anesthetic was induced by the Department of Anesthesia without difficulty. The patient was then prepped and draped in the usual sterile fashion for vitreoretinal surgery. Ian lid speculums were inserted in the left eye, and the operating microscope was positioned above the patient's left eye. Copious irrigation with normal salt tissue solution was delivered to the conjunctival culs-de-sac and lid margins. A juan carlos was positioned exactly 3.5 mm posterior to the corneoscleral limbus in the inferotemporal quadrant. A 25-gauge trocar stylet system was then introduced in the vitreous cavity at that juan carlos using a biplanar incision. The stylet was withdrawn and a 4.0 mm cannulated infusion was placed in the trocar. Appropriate placement of the trocar and infusion cannula in the vitreous cavity was confirmed by direct observation prior to opening the infusion line at 35 mmHg pressure. Similar sclerotomies were then created in the superior temporal and superior nasal quadrants with the same type of 25-gauge trocar stylet system. Biplanar incisions were utilized, and the position of the cannula in the vitreous cavity was confirmed by observation. The BIOM wide-field microscopic viewing system was then rotated into position. With the high-speed 25-gauge vitrectomy instrument in the superior nasal sclerotomy site and the intraocular light pipe in superior temporal site, a central core vitrectomy was initiated without difficulty. The vitrectomy was carried posteriorly until the posterior hyaloid was identified at the optic nerve. The hyaloid was engaged and was carefully delaminated to the mid vitreous cavity. It was noted that a small horseshoe tear opened upon delamination of the hyaloid. The directional endolaser probe was inserted and a total of 109 applications were delivered to the region of the tear with good uptake. Peripheral vitrectomy was then completed using 360 degrees scleral depression. Air-fluid exchange was performed, and a 50% dilution of indocyanine green dye was placed on the macular surface. This was left in contact for exactly 60 seconds. The ICG was then aspirated and fluid was returned to the eye. The BIOM was rotated out of position and a contact lens was placed on the cornea. With the 25-gauge internal limiting membrane forceps in the superior nasal site and the intraocular light pipe in the superior temporal site, preretinal fibrotic tissues were removed. The internal limiting membrane was well stained and it was engaged in the perifoveal zone. The internal limiting membrane was then removed in a circular fashion with a 2-disk diameter maculorrhexis having been created centered on the fovea. Following completion of internal limiting membrane delamination, the intraocular instruments were removed and the BIOM was returned to the field. Air-fluid exchange was accomplished using a brush backflush needle and internal drainage via the scleral buckle was performed. The intraocular instruments were again removed and the superior nasal trocar was pulled as massage and electrocautery were delivered to the sclerotomy site. The sclerotomy was found to be airtight. A venting valve was placed in the superior temporal trocar and air/gas exchange using 15% perfluoropropane was delivered. A total of 50 mL of C3F8 was lavaged through the eye. The superior temporal trocar was then removed, and again massage and electrocautery were delivered to the sclerotomy site. The sclerotomy was found to be airtight. A similar technique was utilized as the trocar and infusion were removed from the inferior temporal site. Indirect ophthalmoscopy showed attached retina with early laser photocoagulation reaction, complete air/gas exchange and good optic nerve perfusion. Intraocular tension by Barraquer tonometry was 15 mmHg. The eye was copiously irrigated with Garamycin ophthalmic solution. Depo-Medrol 40 mg/mL was injected in the sub-Tenon space. At completion of the procedure, the eye was patched with topical TobraDex ointment, the anesthetic agent was reversed without difficulty, and the patient was extubated and was transported to the recovery room in good condition. Nas Dejesus MD Dictated By: cc: UER MIXER documented in this encounter Plan of Treatment Not on filedocumented as of this encounter Procedures Comments Procedure Name Priority Date/Time Associated Diag nosis INR POINT OF CARE Routine 12/15/2011 2:03 PM CDT documented in this encounter Results * INR Point of Care (12/15/2011 2:03 PM CDT) INR 1.2 (H) 0.9 - 1.1 [facility] Specimen Blood Performing Organization Address City/State/Zipcode Ph one Number [facility] [address] [place], [place] [address] [facility] documented in this encounter Visit Diagnoses Diagnosis Macular cyst, hole, or pseudohole of re neris documented in this encounter
--- OUTSIDE RECORDS SUMMARY | 2019-11-22 13:13 | XMS REPORT | CCD ---
Author Author [facility] er Address Unknown Phone Unavailable Care Team Providers Care Payroll Bookkeeper Name Role Phone HODA JADE, DR. Sridhar RENDON PP [phone] DR. Kym BOGGS DO CP [phone] REFERRING MD, NO RP Unavailable Allergies, Adverse Reactions, Alerts Substance Reaction Status penicillin Active sulfADIAZINE Active Problem List Condition Effective Dates Status CAD (coronary artery disease) 12/23/2010 Active Cardiac pacemaker Active History of AAA (abdominal aortic aneurysm) repair1 Active Hyperlipidemia 12/23/2010 Active Hypertension 12/23/2010 Active Nausea Active PAF (paroxysmal atrial fibrillation) Active S/P CABG x 2 12/25/2010 Active 1S/P stent Medications Medication Instructions Start Date End Date Status simvastatin 20 mg, PO, QHS (At bedtime), 11/08/2010 O rdered 11/08/10 6:17:21 Vital Signs Most recent to oldest [Reference Range]: 1 Temperature [96.8-99.7 DegF] 98 DegF (11/09/2010 07:00:00) Temp Method Oral (11/09/2010 07:00:00) Heart Rate 65 bpm (11/09/2010 07:00:00) Heart Rate Location Continuous Casting Machine Set Up Operator (11/09/2010 07:00:00) Respiratory Rate [14-20 br/min] 19 br/min (11/09/2010 07:00:00) Inet NIBP Systolic [71-219 mmHg] 142 mmHg (11/09/2010 07:00:00) Inet NIBP Diastolic [50-90 mmHg] 86 mmHg (11/09/2010 07:00:00) NIBP MAP 99 mmHg (11/09/2010 07:00:00) NIBP MAP Calc 105 (11/09/2010 07:00:00) BP Location Arm, right (11/09/2010 07:00:00) Heart Rhythm Pacemaker, atrial (11/09/2010 07:00:00) Procedures Procedures Date Related Diagnosis Initial insertion of dual-chamber device 11/08/2010 00:00:00 Initial insertion of transvenous leads [electrodes] i nto 11/08/2010 00:00:00 atrium and ventricle
--- OUTSIDE RECORDS SUMMARY | 2019-11-22 13:13 | XMS REPORT | CCD ---
Author Author [facility] er Address Unknown Phone Unavailable Care Team Providers Care Residential Electrician Name Role Phone HODA JADE, DR. Sridhar RENDON PP [phone] DANDRE JADE, DR. VILLARREAL CP [phone] LUZMA CACERES MD RP [phone] Allergies, Adverse Reactions, Alerts Substance Reaction Status penicillin Active sulfADIAZINE Active Problem List Condition Effective Dates Status CAD (coronary artery disease) 12/23/2010 Active Cardiac pacemaker Active History of AAA (abdominal aortic aneurysm) repair1 Active Hyperlipidemia 12/23/2010 Active Hypertension 12/23/2010 Active Nausea Active PAF (paroxysmal atrial fibrillation) Active S/P CABG x 2 12/25/2010 Active 1S/P stent
--- OUTSIDE RECORDS SUMMARY | 2019-11-22 13:13 | XMS REPORT | CCD ---
Author Author [facility] er Address Unknown Phone Unavailable Care Team Providers Care Crane Helper Name Role Phone DR. Sridhar DRUMMOND MD PP [phone] REFERRING MD, AISHWARYA RP Unavailable DR. Lorena MATAMOROS DO CP [phone] Allergies, Adverse Reactions, Alerts Substance Reaction Status penicillin Active sulfADIAZINE Active Problem List Condition Effective Dates Status CAD (coronary artery disease) 12/23/2010 Active Cardiac pacemaker Active History of AAA (abdominal aortic aneurysm) repair1 Active Hyperlipidemia 12/23/2010 Active Hypertension 12/23/2010 Active Nausea Active PAF (paroxysmal atrial fibrillation) Active S/P CABG x 2 12/25/2010 Active 1S/P stent Medications Medication Instructions Start Date End Date Status Ambien 10 mg oral 10 mg, PO, QHS (At bedtime), PRN 01/10/2011 Ordered tablet Sleep/Insomnia PROzac 20 mg oral 20 mg, PO, Daily 01/10/2011 Ordered capsule metoprolol 25 mg 25 mg, PO, BID (2 times a day) 01/10/2011 Ordered oral tablet Vital Signs Most recent to oldest [Reference Range]: 1 Temperature [96.8-99.7 DegF] 98.7 DegF (01/10/2011 13:18:00) Temp Method Oral (01/10/2011 13:18:00) Heart Rate 61 bpm (01/10/2011 16:00:00) Respiratory Rate [14-20 br/min] 18 br/min (01/10/2011 16:00:00) Inet NIBP Systolic [71-219 mmHg] 134 mmHg (01/10/2011 16:00:00) Inet NIBP Diastolic [50-90 mmHg] 85 mmHg (01/10/2011 16:00:00) NIBP MAP 97 mmHg (01/10/2011 16:00:00) NIBP MAP Calc 101 (01/10/2011 16:00:00)
--- OUTSIDE RECORDS SUMMARY | 2019-11-22 13:13 | XMS REPORT ---
Author Author Empressr maintainability engineer [facility] THEMA Address [address] [address] Care Team Providers Care Computer Software Engineer Name Role Phone JUSTICE DRUMMOND Unavailable LIBRADO BLUNT Unavailable Unavailable JUSTICE DRUMMOND PCP JUSTICE DRUMMOND MD Unavailable Unavailable LIBRADO BLUNT Unavailable Unavailable JUSTICE DRUMMOND Unavailable Unavailable LIBRADO BLUNT MD Unavailable Unavailable Unavailable Unavailable Unavailable Unavailable Unavailable Unavailable Unavailable Unavailable Unavailable Unavailable Unavailable Unavailable Allergies The data below is from unstructured sources Allergen Type Severity Reaction Status Last Updated No Allergy Information Available Active 09/19/14 Medications Medication Ingredient Drug Dose Dates Status Sig Sig Care Class(es) (Normalized) (Original) Provid er no Aspirin no 01-14-20 Complete take 325 Aspirin (no information (Aspirin information 16 d tablets by (Aspir in 325 phone) (4 325 Mg Tab) mouth once Mg Tab) 325 sources.) 325 Mg Tab, daily Mg Tab, 325 325 Mg Oral Mg Oral Daily Discontinued no Multivitami no Complete take 1 Multivitamin (n o information ns information d tablet by s (Multipl e phone) (2 (Multiple mouth once Vitamin) 1 sources.) Vitamin) 1 daily, then Tab Tablet 1 Tab Tablet take 1 Tab ORAL tablet by Daily mouth no [place]-3 no Complete take 1 [place]-3 (no information Fatty information d capsule by Fatty phone) (2 Acids/Fish mouth once Acids/Fish sources.) Oil (Fish daily, then Oil (Fish Oil 1,000 take 1 Oil 1,000 Mg Mg Softgel) capsule by Softgel) 1 1 Each mouth Each Capsule Capsule 1 Each ORAL Daily no Vitamin no 01-14-20 Complete take 1 Vitamin (no information C/Vitamin E information 16 d tablet by C/Vi tamin E phone) (2 (Ocuvite) 1 mouth once (Ocuvite) 1 sources.) Tab Tab, 1 daily, then Tab Tab, 1 Tab Oral take 1 Tab Oral tablet by Daily mouth Discontinued no Vitamin E no 400 Complete take 1 Vitamin E (no information 400 Unit information [IU] d capsule by 400 Uni t phone) (2 Capsule mouth once Capsule 400 sources.) daily Unit ORAL Daily Problems Active Problems Problem Normalized Date Last Normalized Normalized Provider Fa cility Classification Problem(s) Recorded Problem Problem Sta tus Duration Other liver Abnormal Episodic Active JUSTICE DRUMMOND MD Not Av ailable diseases (1 levels of (96933) source.) other serum enzymes Deficiency and Anemia, 11-19-2019 - Episodic Active LIBRADO CARSON Not Available other anemia unspecified (46238) (23 sources.) Aortic; Aneurysm of Chronic Active LIBRADO BLUNT Not Riya ilable peripheral; iliac artery (50606) and visceral Translations: artery [ ABDOM AORTIC aneurysms (20 ANEURYSM, sources.) ABDOMINAL AORTIC ANEURYSM, WITHOUT RUPTU] Coronary Atheroscleroti Chronic Active JUSTICE DRUMMOND MD [facility] Via atherosclerosi c heart Jihan s and other disease of Hospital - heart disease [facility] (8 sources.) coronary (74311) artery without angina pectoris Cardiac Atrial Chronic Active JUSTICE DRUMMOND MD Not Avai lable dysrhythmias fibrillation (41680) (9 sources.) Other diseases Cyst of Episodic Active JUSTICE DRUMMOND MD Not Available of kidney and kidney, (20835) ureters (3 acquired sources.) Abdominal Diaphragmatic Episodic Active RQAUEL WOMACK , Not Available hernia (3 hernia without DO (25376) sources.) obstruction or gangrene Essential Essential 11-19-2019 - Chronic Active LIBRADO BLUNT Not Available hypertension (primary) (71606) (24 sources.) hypertension Translations: [ HYPERTENSION NOS] Other USP 11-19-2019 - Episodic Active JUSTICE DRUMMOND MD Not Available aftercare (21 (current) use (16774) sources.) of anticoagulants Other Long-term Episodic Active LIBRADO BLUNT Not Avail able aftercare (17 (current) use (19580) sources.) of other medications Cancer of Malignant 11-19-2019 - Chronic Active JUAN RAMON DOHERTY , Not Available prostate (22 neoplasm of (62007) sources.) prostate Translations: [ MALIGN NEOPL PROSTATE] Gastrointestin Melena Episodic Active RAQUEL WOMACK , Not Available al hemorrhage DO (96055) (3 sources.) NEGATED Other and Chronic Active JUAN RAMON DOHERTY , Not Avai lable no unspecified MD (86754) information (1 hyperlipidemia source.) Other Other long 11-19-2019 - Episodic Active LIBRADO BLUNT Not Available aftercare (21 term (current) (67494) sources.) drug therapy Pulmonary Other Episodic Active JUSTICE DRUMMOND MD Not Avai lable heart disease pulmonary (78994) (8 sources.) embolism and infarction Unclassified Personal Episodic Active LIBRADO BLUNT Not Riya ilable (12 sources.) history of (83223) irradiation, presenting hazards to health Other Presence of Chronic Active JUSTICE DRUMMOND MD Not A vailable circulatory other vascular (35644) disease (3 implants and sources.) grafts Hemorrhoids (3 Residual Episodic Active RAQUEL WOMACK , Not Available sources.) hemorrhoidal DO (57043) skin tags 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 LIBRADO CARSON Not Available malignancies unspecified (56297) (21 sources.) malignant neoplasm of lymph node, unspecified Secondary Secondary and Chronic Active LIBRADO BLUNT Not A vailable malignancies unspecified (10362) (12 sources.) malignant neoplasm of lymph nodes, site unspecified Coagulation Thrombocytopen 11-19-2019 - Chronic Active LIBRADO BLUNT Not Available and ia, (43314) hemorrhagic unspecified disorders (21 sources.) Past or Other Problems Problem Normalized Date Last Normalized Normalized Provider Fa cility Classification Problem(s) Recorded Problem Problem Sta tus Duration Other Encounter for Episodic Completed JUSTICE DRUMMOND MD Not Available aftercare (6 therapeutic (43350) sources.) drug level monitoring NEGATED Long-term Episodic Completed JUAN RAMON DOHERTY , Not Avai lable no (current) use (68929) information (1 of aspirin source.) NEGATED Old myocardial no information Completed JUAN RAMON DOHERTY , Not Available no infarction (45659) information (1 Translations: source.) [ PERCUTANEOUS TRANSLUM CORON ANGIOPLASTY ] Procedures The data below is from unstructured sourcesNo known history of procedures.No known history of procedures.No known history of procedures.No procedure information available.No procedure information availab le.No procedure information available.No procedure information available.No proc edure information available.No procedure information available. Immunizations Normalized Immunization Date Notes Care Provider Facili ty Immunization pneumococcal 05-20-2019 no information no name [facility] conjugate vaccine, [facility] (11678) vaccine no information JUSTICEAlcon DRUMMOND [id number] [address] Jihan rangel Translations: [ [place] (27687) vaccine] zoster vaccine 07-12-2019 no information no name [facility] (32502) zoster vaccine 05-03-2019 no information no name [facility] (57937) zoster vaccine, live 04-06-2012 no information no name [facility] (96057) Results Test Name Value Interpretation Reference Range Date Time Fa cility (Normalized) (Normalized) (Medline Reference) other on null CURRENT COUMADIN 7.5mg M/F, 5 mg (no code) [facility] DOSE all other days [facility] (77833) Exp date 09/24/2019 (no code) [facility] (08260) Lot # [id number] (no code) [facility] (78496) not yet categorized on null Control Negative (no code) [facility] (06360) Exp date 12/2019 (no code) [facility] (62766) Exp date 02/2021 (no code) [facility] (00142) Exp date 01/24/2020 (no code) [facility] (78511) Exp date 10/2019 (no code) [facility] (52279) Exp date 02/24/20 (no code) [facility] (31943) Exp date 03/04/20 (no code) [facility] (01777) Lot # [id number] (no code) [facility] (24328) Lot # [id number] (no code) [facility] (70580) Lot # [id number] (no code) [facility] (62791) Lot # [id number] (no code) [facility] () Lot # [id number] (no code) [facility] () Lot # [id number] (no code) [facility] () NEW COUMADIN 7.5 m/f, 5mg (no code) [facility] OD~take 10mg [facility] 7.5mg M/F, 5mg () all other days, recheck next Monday NEW COUMADIN 7.5mg m/w/f and (no code) [facility] 5mg OD [facility] () NEW COUMADIN no change (no code) [facility] recheck 1 month [facility] () laboratory on null INR Coag (PPP) 1.5~2.1 (no code) [facility] [Relative time] [facility] () INR Coag (PPP) 2.5~2.0 (no code) [facility] [Relative time] [facility] () INR Coag (PPP) 2.0~2.5 (no code) [facility] [Relative time] [facility] () INR Coag (PPP) 2.0~1.5 (no code) [facility] [Relative time] [facility] () INR Coag (PPP) 2.4~2.0 (no code) [facility] [Relative time] [facility] () INR Coag (PPP) 2.1~2.4 (no code) [facility] () hematology on null INR Coag (PPP) 2.1 {INR} (no code) 0.9 - 1.1 {INR} Commun [facility] [Relative time] [facility] () laboratory on 2019-11-19 Albumin 3.8 g/dL (N) 3.4 - 5.4 g/dL Community [facility] [Mass/Vol] [facility] () Albumin/Globulin 1.3 {ratio} (N) 1 - 2.5 {ratio} Comm [facility] [Mass ratio] [facility] () ALP [Catalytic 273 U/L (H) 44 - 147 U/L [facility] activity/Vol] [facility] () ALT [Catalytic 10 U/L (N) 4 - 40 U/L [facility] activity/Vol] [facility] () AST [Catalytic 21 U/L (N) 10 - 34 U/L [facility] activity/Vol] [facility] () Band form 0.045 10*3/uL (N) 0 - 0.75 10*3/uL [facility] neutrophils [facility] (Bld) [#/Vol] [facility] () Band form 0.9 % (N) 0 - 3 % [facility] neutrophils/100 [facility] WBC (Bld) [facility] () Basophils (Bld) 0 10*3/uL (N) 0 - 0.3 10*3/uL [facility] [#/Vol] [facility] () Basophils/100 0 % (N) 0.5 - 1 % [facility] WBC (Bld) [facility] () Bilirubin 0.4 mg/dL (N) 0.1 - 1.2 mg/dL [facility] [Mass/Vol] [facility] (40750) Calcium 9.1 mg/dL (N) 8.5 - 10.2 mg/dL [facility] [Mass/Vol] [facility] (35429) Chloride 105 mmol/L (N) 95 - 106 mmol/L [facility] [Moles/Vol] [facility] (47629) CO2 [Moles/Vol] 31 mmol/L (N) 23 - 29 mmol/L [facility] (69734[facility] Creatinine 0.98 mg/dL (N) [facility] [Mass/Vol] [facility] (20109) Eosinophils 0.145 10*3/uL (N) 0.05 - 0.5 Community [facility]th (Bld) [#/Vol] 10*3/uL [facility] (47767) Eosinophils/100 2.9 % (N) 1 - 4 % [facility] WBC (Bld) [facility] (24293) Erythrocyte 13.0 % (N) 11.6 - 14.6 % [facility] ealth distribution Center [facility] (RBC) [facility] [Ratio] (96098) GFR/1.73 sq M 83 (N) 90 - 120 [facility] alth predicted among mL/min/{1.73_m2} mL/min/{1.73_m2} Center o f [facility] blacks MDRD [facility] (S/P/Bld) [Vol (57764) rate/Area] GFR/1.73 sq 72 (N) 90 - 120 [facility] th M.predicted MDRD mL/min/{1.73_m2} mL/min/{1.73_m2} [facility] (S/P/Bld) [Vol [facility] rate/Area] (90530) Globulin (S) 2.9 g/dL (N) 2 - 3.5 g/dL [facility] [Mass/Vol] [facility] (91991) Glucose 93 mg/dL (N) 60 - 125 mg/dL [facility] [Mass/Vol] [facility] (76582) Hematocrit (Bld) 36.9 % (L) 36.1 - 50.3 % [facility] [Volume [facility] (89375) Hemoglobin (Bld) 12.0 g/dL (L) 12.1 - 17.2 g/dL [facility] [Mass/Vol] [facility] (44037) Lymphocytes 1.62 10*3/uL (N) 0.9 - 2.9 [facility]th (Bld) [#/Vol] 10*3/uL [facility] (02978) Lymphocytes/100 32.4 % (N) 20 - 40 % [facility] WBC (Bld) [facility] (06207) MCH (RBC) 31.3 pg (N) 27 - 31 pg [facility] [Entitic mass] [facility] (12688) MCHC (RBC) 32.5 g/dL (N) 32 - 36 g/dL [facility] alth [Mass/Vol] [facility] (31644) MCV (RBC) 96.1 fL (N) 80 - 100 fL [facility] [Entitic vol] [facility] (11664) Monocytes (Bld) 0.24 10*3/uL (N) 0.3 - 0.9 [facility] [#/Vol] 10*3/uL [facility] (29181) Monocytes/100 4.8 % (N) 2 - 8 % [facility] alth WBC (Bld) [facility] (70243) Neutrophils 2.95 10*3/uL (N) 1.7 - 7 10*3/uL [facility] (Bld) [#/Vol] [facility] (53525) Neutrophils/100 59.0 % (N) 40 - 60 % [facility] WBC (Bld) [facility] (36819) Platelet mean 9.2 fL (N) 7.2 - 11.7 fL [facility] volume (Bld) [facility] [Entitic vol] [facility] (82458) Platelets (Bld) 112 10*3/uL (L) 150 - 450 [facility] [#/Vol] 10*3/uL [facility] (95466) Platelets LM Ql DECREASED (A) [facility] th (Bld) [facility] (32706) Potassium 4.6 mmol/L (N) 3.7 - 5.2 mmol/L [facility] [Moles/Vol] [facility] (39913) Protein 6.7 g/dL (N) 6.4 - 8.3 g/dL [facility] [Mass/Vol] [facility] (05215) RBC (Bld) 3.84 10*6/uL (L) 4.2 - 6.1 [facility] [#/Vol] 10*6/uL [facility] (97259) Service comment no information (no code) [facility] th (Unsp spec) [facility] [Interp] [facility] (17610) Sodium 140 mmol/L (N) 135 - 145 mmol/L [facility] [Moles/Vol] [facility] (18763) Urea nitrogen 25 mg/dL (N) 7 - 20 mg/dL [facility] [Mass/Vol] [facility] (33436) Urea NOT APPLICABLE (no code) [facility] nitrogen/Creatin [facility] [Mass ratio] [facility] () WBC (Bld) 5.0 10*3/uL (N) 3.5 - 10.5 [facility] th [#/Vol] 10*3/uL [facility] () laboratory on 2019-08-23 Basophils (Bld) 0.08 10*3/uL (N) 0 - 0.3 10*3/uL [facility] [#/Vol] [facility] (88198) Basophils/100 1.0 % (N) 0.5 - 1 % [facility] alth WBC (Bld) [facility] () Calcium 9.0 mg/dL (N) 8.5 - 10.2 mg/dL [facility] [Mass/Vol] [facility] (02299) Chloride 103 mmol/L (N) 95 - 106 mmol/L [facility] [Moles/Vol] [facility] (06802) CO2 [Moles/Vol] 30 mmol/L (N) 23 - 29 mmol/L [facility] (91753) Creatinine 1.06 mg/dL (N) [facility] [Mass/Vol] [facility] (92187) Eosinophils 0 10*3/uL (L) 0.05 - 0.5 [facility] th (Bld) [#/Vol] 10*3/uL [facility] () Eosinophils/100 0 % (N) 1 - 4 % [facility] WBC (Bld) [facility] (76244) Erythrocyte 12.6 % (N) 11.6 - 14.6 % Community [facility] ealth distribution [facility] (RBC) [facility] [Ratio] (56221) GFR/1.73 sq M 76 (N) 90 - 120 [facility] He [facility] predicted among mL/min/{1.73_m2} mL/min/{1.73_m2} Center o f [facility] blacks MDRD [facility] (S/P/Bld) [Vol (69332) rate/Area] GFR/1.73 sq 65 (N) 90 - 120 [facility] th M.predicted MDRD mL/min/{1.73_m2} mL/min/{1.73_m2} [facility] (S/P/Bld) [Vol [facility] rate/Area] (77214) Glucose 93 mg/dL (N) 60 - 125 mg/dL [facility] [Mass/Vol] [facility] (75178) Hematocrit (Bld) 36.6 % (L) 36.1 - 50.3 % [facility] [Volume Center [facility] (11297) Hemoglobin (Bld) 12.2 g/dL (L) 12.1 - 17.2 g/dL [facility] [Mass/Vol] [facility] (13304) Lymphocytes 0.96 10*3/uL (N) 0.9 - 2.9 [facility] lth (Bld) [#/Vol] 10*3/uL [facility] (27345) Lymphocytes/100 12.0 % (N) 20 - 40 % [facility] WBC (Bld) [facility] (53145) MCH (RBC) 31.5 pg (N) 27 - 31 pg [facility] [Entitic mass] [facility] (06318) MCHC (RBC) 33.3 g/dL (N) 32 - 36 g/dL [facility] [Mass/Vol] [facility] (84318) MCV (RBC) 94.6 fL (N) 80 - 100 fL [facility] lt [Entitic vol] [facility] (79291) Metamyelocytes 0.08 10*3/uL (H) [facility] h (Bld) [#/Vol] [facility] (83450) Metamyelocytes/1 1.0 % (H) 0 - 0 % [facility] 00 WBC (Bld) [facility] (23383) Monocytes (Bld) 0.24 10*3/uL (N) 0.3 - 0.9 [facility] [#/Vol] 10*3/uL [facility] (06557) Monocytes/100 3.0 % (N) 2 - 8 % [facility] alth WBC (Bld) [facility] (21375) Neutrophils 6.64 10*3/uL (N) 1.7 - 7 10*3/uL [facility] (Bld) [#/Vol] [facility] (36698) Neutrophils/100 83.0 % (N) 40 - 60 % [facility] WBC (Bld) [facility] (35386) Pathologist TNP (no code) [facility] comment (Bld) (01020) [Interp] Platelet mean 9.4 fL (N) 7.2 - 11.7 fL [facility] volume (Bld) [facility] [Entitic vol] [facility] (77327) Platelets (Bld) 110 10*3/uL (L) 150 - 450 [facility] [#/Vol] 10*3/uL [facility] (91310) Potassium 4.3 mmol/L (N) 3.7 - 5.2 mmol/L [facility] [Moles/Vol] [facility] (96636) RBC (Bld) 3.87 10*6/uL (L) 4.2 - 6.1 [facility] lth [#/Vol] 10*6/uL [facility] (53379) Service comment no information (no code) [facility] (Unsp spec) [facility] [Interp] [facility] (02923) Sodium 140 mmol/L (N) 135 - 145 mmol/L [facility] [Moles/Vol] [facility] (62701) Urea nitrogen 24 mg/dL (N) 7 - 20 mg/dL [facility] [Mass/Vol] [facility] (01299) Urea NOT APPLICABLE (no code) [facility] nitrogen/Creatin [facility] [Mass ratio] [facility] (06916) WBC (Bld) 8.0 10*3/uL (N) 3.5 - 10.5 [facility] [#/Vol] 10*3/uL [facility] (07199) laboratory on 2019 Albumin 3.6 g/dL (N) 3.4 - 5.4 g/dL [facility] [Mass/Vol] [facility] (16655) Albumin/Globulin 1.2 {ratio} (N) 1 - 2.5 {ratio} Comm [facility] [Mass ratio] [facility] (57724) ALP [Catalytic 234 U/L (H) 44 - 147 U/L [facility] activity/Vol] [facility] (13281) ALT [Catalytic 11 U/L (N) 4 - 40 U/L [facility] ealt activity/Vol] [facility] (88960) AST [Catalytic 20 U/L (N) 10 - 34 U/L [facility] activity/Vol] [facility] (62918) Basophils (Bld) 0.05 10*3/uL (N) 0 - 0.3 10*3/uL [facility] [#/Vol] [facility] (60418) Basophils/100 1.0 % (N) 0.5 - 1 % [facility]th WBC (Bld) [facility] (60395) Bilirubin 0.5 mg/dL (N) 0.1 - 1.2 mg/dL [facility] [Mass/Vol] [facility] (80287) Calcium 9.2 mg/dL (N) 8.5 - 10.2 mg/dL [facility] [Mass/Vol] [facility] (06410) Chloride 104 mmol/L (N) 95 - 106 mmol/L [facility] [Moles/Vol] [facility] (22338) Cholesterol 159 mg/dL (N) 180 - 200 mg/dL [facility] [Mass/Vol] [facility] (25593) Cholesterol in 43 mg/dL (N) [facility] h HDL [Mass/Vol] [facility] (83533) Cholesterol in 95 mg/dL (N) 0 - 100 mg/dL [facility] LDL [Mass/Vol] [facility] (63632) Cholesterol non 116 mg/dL (N) [facility] HDL [Mass/Vol] [facility] (51133) Cholesterol.tota 3.7 {ratio} (N) [facility] lt l/Cholesterol in [facility] HDL [Mass ratio] [facility] (03875) CO2 [Moles/Vol] 31 mmol/L (N) 23 - 29 mmol/L [facility] (94212) Creatinine 0.91 mg/dL (N) [facility] h [Mass/Vol] [facility] (24977) Eosinophils 0.2 10*3/uL (N) 0.05 - 0.5 [facility] (Bld) [#/Vol] 10*3/uL [facility] (98112) Eosinophils/100 4.0 % (N) 1 - 4 % [facility] WBC (Bld) [facility] (08198) Erythrocyte 13.0 % (N) 11.6 - 14.6 % [facility] ealth distribution [facility] width (RBC) [facility] [Ratio] (08909) Free T4 0.9 ng/dL (N) 0.9 - 2.2 ng/dL [facility] [Mass/Vol] [facility] (70594) GFR/1.73 sq M 91 (N) 90 - 120 [facility] predicted among mL/min/{1.73_m2} mL/min/{1.73_m2} [place] o f [facility] blacks MDRD [facility] (S/P/Bld) [Vol (13955) rate/Area] GFR/1.73 sq 79 (N) 90 - 120 [facility] th M.predicted MDRD mL/min/{1.73_m2} mL/min/{1.73_m2} [facility] (S/P/Bld) [Vol [facility] rate/Area] (60133) Globulin (S) 2.9 g/dL (N) 2 - 3.5 g/dL [facility] ealth [Mass/Vol] [facility] (56008) Glucose 98 mg/dL (N) 60 - 125 mg/dL [facility] [Mass/Vol] [facility] (63896) Hematocrit (Bld) 37.3 % (L) 36.1 - 50.3 % [facility] [Volume [facility] (46868) Hemoglobin (Bld) 12.7 g/dL (L) 12.1 - 17.2 g/dL [facility] [Mass/Vol] [facility] (49052) Lymphocytes 1.315 10*3/uL (N) 0.9 - 2.9 [facility] (Bld) [#/Vol] 10*3/uL [facility] (59303) Lymphocytes/100 26.3 % (N) 20 - 40 % [facility] WBC (Bld) [facility] (17573) MCH (RBC) 32.2 pg (N) 27 - 31 pg [facility] th [Entitic mass] [facility] (69971) MCHC (RBC) 34.0 g/dL (N) 32 - 36 g/dL [facility] [Mass/Vol] [facility] (48200) MCV (RBC) 94.7 fL (N) 80 - 100 fL [facility] [Entitic vol] [facility] (80334) Monocytes (Bld) 0.355 10*3/uL (N) 0.3 - 0.9 [facility] [#/Vol] 10*3/uL [facility] (96603) Monocytes/100 7.1 % (N) 2 - 8 % [facility] WBC (Bld) [facility] (94073) Morphology Ace no information (N) [facility] (Bld) [Interp] [facility] (86465) Neutrophils 3.08 10*3/uL (N) 1.7 - 7 10*3/uL [facility] (Bld) [#/Vol] [facility] (02379) Neutrophils/100 61.6 % (N) 40 - 60 % [facility] WBC (Bld) [facility] (04221) Platelet mean 9.9 fL (N) 7.2 - 11.7 fL [facility] volume (Bld) [facility] [Entitic vol] [facility] (00366) Platelets (Bld) 119 10*3/uL (L) 150 - 450 [facility] [#/Vol] 10*3/uL [facility] (30640) Platelets LM Ql DECREASED (A) [facility] (Bld) [facility] (85903) Potassium 4.3 mmol/L (N) 3.7 - 5.2 mmol/L [facility] [Moles/Vol] [facility] (11300) Protein 6.5 g/dL (N) 6.4 - 8.3 g/dL [facility] [Mass/Vol] [facility] (07376) RBC (Bld) 3.94 10*6/uL (L) 4.2 - 6.1 [facility] [#/Vol] 10*6/uL [facility] (87709) Sodium 142 mmol/L (N) 135 - 145 mmol/L [facility] [Moles/Vol] [facility] (25870) Triglyceride 109 mg/dL (N) 0 - 150 mg/dL [facility] [Mass/Vol] [facility] (31795) TSH Qn 3.35 m[IU]/L (N) 0.4 - 4 m[IU]/L [facility] (53447) Urea nitrogen 19 mg/dL (N) 7 - 20 mg/dL [facility] [Mass/Vol] [facility] (10965) Urea NOT APPLICABLE (no code) [facility] nitrogen/Creatin [facility] [Mass ratio] [facility] (72055) WBC (Bld) 5.0 10*3/uL (N) 3.5 - 10.5 [facility] [#/Vol] 10*3/uL [facility] (89636) not yet categorized on 2019-01-03 Control Negative (no code) [facility] (29464) Exp Date 02/2021 (no code) [facility] (63868) Lot # [id number] (no code) [facility] (94333) other on 2018-12-14 Erythrocyte 12.9 % (N) 11.6 - 14.6 % [facility] ealth distribution [facility] (RBC) [facility] [Ratio] (30753) MCHC (RBC) 33.8 g/dL (N) 32 - 36 g/dL [facility] alth [Mass/Vol] [facility] (19142) Platelet mean 9.0 fL (N) 7.2 - 11.7 fL [facility] volume (Bld) [facility] [Entitic vol] [facility] (14073) hematology on 2018-12-14 Basophils (Bld) 0.03 10*3/uL (N) 0 - 0.3 10*3/uL [facility] [#/Vol] [facility] (72386) Basophils/100 0.6 % (N) 0.5 - 1 % [facility] WBC (Bld) [facility] (83390) Eosinophils 0.2 10*3/uL (N) 0.05 - 0.5 [facility] (Bld) [#/Vol] 10*3/uL [facility] (93481) Eosinophils/100 4.0 % (N) 1 - 4 % [facility] WBC (Bld) [facility] (51629) Hematocrit (Bld) 35.5 % (L) 36.1 - 50.3 % [facility] [Volume [facility] fraction] [facility] (75721) Hemoglobin (Bld) 12.0 g/dL (L) 12.1 - 17.2 g/dL [facility] [Mass/Vol] [facility] (08200) Lymphocytes 1.36 10*3/uL (N) 0.9 - 2.9 [facility] (Bld) [#/Vol] 10*3/uL [facility] (57685) Lymphocytes/100 27.2 % (N) 20 - 40 % [facility] WBC (Bld) [facility] (71708) MCH (RBC) 31.9 pg (N) 27 - 31 pg [facility] [Entitic mass] [facility] (01934) MCV (RBC) 94.4 fL (N) 80 - 100 fL [facility] lt [Entitic vol] [facility] (46762) Monocytes (Bld) 0.55 10*3/uL (N) 0.3 - 0.9 [facility] [#/Vol] 10*3/uL [facility] (78253) Monocytes/100 11.0 % (N) 2 - 8 % [facility] WBC (Bld) [facility] (84665) Neutrophils 2.86 10*3/uL (N) 1.7 - 7 10*3/uL [facility] (Bld) [#/Vol] [facility] (51984) Neutrophils/100 57.2 % (N) 40 - 60 % [facility] WBC (Bld) [facility] (34318) Platelets (Bld) 97 10*3/uL (L) 150 - 450 [facility] [#/Vol] 10*3/uL [facility] (19709) RBC (Bld) 3.76 10*6/uL (L) 4.2 - 6.1 [facility] lt [#/Vol] 10*6/uL [facility] (10263) WBC (Bld) 5.0 10*3/uL (N) 3.5 - 10.5 [facility] [#/Vol] 10*3/uL [facility] (54747) other on 2018-09-25 Albumin/Globulin 1.4 (N) [facility] [Mass ratio] [facility] (11970) Cholesterol in 87 (N) [facility] LDL [Mass/Vol] [facility] (01601) Cholesterol non 107 (N) [facility] HDL [Mass/Vol] [facility] (64353) Cholesterol.tota 3.5 (N) [facility] l/Cholesterol in [facility] HDL [Mass ratio] [facility] (40912) CLIENT CONTACT: ALBERTINA Anthony (no code) [facility] (93389) COMMENT no information (no code) [facility] (09502) Erythrocyte 12.6 % (N) 11.6 - 14.6 % [facility] ealth distribution [facility] (RBC) [facility] [Ratio] (33858) GFR/1.73 sq 66 (N) 90 - 120 [facility] th M.predicted MDRD mL/min/{1.73_m2} mL/min/{1.73_m2} [facility] (S/P/Bld) [Vol [facility] rate/Area] (87778) Globulin (S) 2.9 (N) [facility] [Mass/Vol] [facility] (51246) MCHC (RBC) 34.3 g/dL (N) 32 - 36 g/dL [facility] alth [Mass/Vol] [facility] (68387) Platelet mean 9.2 fL (N) 7.2 - 11.7 fL [facility] volume (Bld) [facility] [Entitic vol] [facility] (07496) Reference lab PSA, TOTAL (no code) [facility] test name [facility] (Reference lab (24310) test) REPORT ALWAYS no information (no code) [facility] MESSAGE [facility] (40445) TEST CODE: 5363SB (no code) [facility] (71681) metabolic panel on 2018-09-25 Albumin 4.0 g/dL (N) 3.4 - 5.4 g/dL [facility] [Mass/Vol] [facility] (15774) ALP [Catalytic 226 U/L (H) 44 - 147 U/L [facility] activity/Vol] [facility] (37128) ALT [Catalytic 9 U/L (N) 4 - 40 U/L [facility] ealt activity/Vol] [facility] (65504) AST [Catalytic 19 U/L (N) 10 - 34 U/L [facility] activity/Vol] [facility] (81193) Bilirubin 0.5 mg/dL (N) 0.1 - 1.2 mg/dL [facility] [Mass/Vol] [facility] (29982) Calcium 9.2 mg/dL (N) 8.5 - 10.2 mg/dL [facility] [Mass/Vol] [facility] (93545) Chloride 103 mmol/L (N) 95 - 106 mmol/L [facility] [Moles/Vol] [facility] (41752) CO2 [Moles/Vol] 32 mmol/L (N) 23 - 29 mmol/L [facility] (99052) Creatinine 1.06 mg/dL (N) [facility] [Mass/Vol] [facility] (75325) GFR/1.73 sq M 76 (N) 90 - 120 [facility] predicted among mL/min/{1.73_m2} mL/min/{1.73_m2} [place] MDRD [facility] (S/P/Bld) [Vol (64955) rate/Area] Glucose 93 mg/dL (N) 60 - 125 mg/dL [facility] [Mass/Vol] [facility] () Potassium 4.1 mmol/L (N) 3.7 - 5.2 mmol/L [facility] [Moles/Vol] [facility] (40295) Protein 6.9 g/dL (N) 6.4 - 8.3 g/dL [facility] [Mass/Vol] [facility] (23889) Sodium 140 mmol/L (N) 135 - 145 mmol/L [facility] [Moles/Vol] [facility] (91670) Urea nitrogen 23 mg/dL (N) 7 - 20 mg/dL [facility] [Mass/Vol] [facility] (84022) Urea NOT APPLICABLE (no code) [facility] nitrogen/Creatin [facility] [Mass ratio] [facility] (06362) imm/path on 2018-09-25 Prostate ng/mL (N) 0 - 4 ng/mL [facility] specific Ag [facility] [Mass/Vol] [facility] () hematology on 2018-09-25 Basophils (Bld) 0.028 10*3/uL (N) 0 - 0.3 10*3/uL [facility] [#/Vol] [facility] (73024) Basophils/100 0.5 % (N) 0.5 - 1 % [facility] alth WBC (Bld) [facility] (25086) Eosinophils 0.16 10*3/uL (N) 0.05 - 0.5 [facility] (Bld) [#/Vol] 10*3/uL [facility] (06061) Eosinophils/100 2.9 % (N) 1 - 4 % [facility] WBC (Bld) [facility] (03843) Hematocrit (Bld) 38.2 % (L) 36.1 - 50.3 % [facility] [Volume [facility] (00770) Hemoglobin (Bld) 13.1 g/dL (L) 12.1 - 17.2 g/dL [facility] [Mass/Vol] [facility] (34661) Lymphocytes 1.117 10*3/uL (N) 0.9 - 2.9 [facility] alth (Bld) [#/Vol] 10*3/uL [facility] (66535) Lymphocytes/100 20.3 % (N) 20 - 40 % [facility] WBC (Bld) [facility] (78977) MCH (RBC) 32.3 pg (N) 27 - 31 pg [facility] th [Entitic mass] [facility] (73856) MCV (RBC) 94.1 fL (N) 80 - 100 [facility] (46235) Monocytes (Bld) 0.517 10*3/uL (N) 0.3 - 0.9 [facility] [#/Vol] 10*3/uL [facility] (50324) Monocytes/100 9.4 % (N) 2 - 8 % [facility] WBC (Bld) [facility] (23814) Neutrophils 3.68 10*3/uL (N) 1.7 - 7 10*3/uL [facility] (Bld) [#/Vol] [facility] (81626) Neutrophils/100 66.9 % (N) 40 - 60 % [facility] WBC (Bld) [facility] (30934) Platelets (Bld) 106 10*3/uL (L) 150 - 450 [facility] [#/Vol] 10*3/uL [facility] (62066) RBC (Bld) 4.06 10*6/uL (L) 4.2 - 6.1 [facility] [#/Vol] 10*6/uL [facility] (03766) WBC (Bld) 5.5 10*3/uL (N) 3.5 - 10.5 [facility] [#/Vol] 10*3/uL [facility] (82135) cardiac on 2018-09-25 Cholesterol 150 mg/dL (N) 180 - 200 mg/dL [facility] [Mass/Vol] [facility] (52464) Cholesterol in 43 mg/dL (N) [facility] HDL [Mass/Vol] [facility] (53650) Triglyceride 104 mg/dL (N) 0 - 150 mg/dL [facility] [Mass/Vol] [facility] (60902) Vital Signs The data below is from unstructured sources Vital Response Date/Time Temperature (Fahrenheit) 97.0 degree s F (97.6 - 99.5) 01/19/2016 3:20pm Temperature (Calculated Celsius) 36. 85965 degrees C (36.4 - 37.5) 01/19/2016 3:20pm Temperature Source Tympanic 01/19/2016 3:20pm Pulse Rate (adult) 62 bpm (60 - 90) 01/19/2016 3:20pm Respiratory Rate 18 bpm (12 - 24) 01/19/2016 3:20pm O2 Sat by Pulse Oximetry 96 % (88 - 100) 01/19/2016 3:20pm Blood Pressure 175/99 mm Hg 01/19/2016 3:20pm Pain Numeric Pain Scale 0-No Pain 01/19/2016 3:20pm Pain Intensity 0 2015 3:15pm Height (Feet) 6 feet 1:07pm Height (Inches) 2.00 inches 01/19/2016 1:07pm Height (Calculated Centimeters) 187. 770454 cm 01/19/2016 1:07pm Weight (Pounds) 230 pounds 01/19/2016 1:07pm Weight (Ounces) 0.0 oz 0 01/19/2016 1:07pm Weight (Calculated Grams) 198692.246 gm 01/19/2016 1:07pm Weight (Calculated Kilograms) 104.32 6246 kilograms 01/19/2016 1:07pm Calculated BMI 29.5 12/25 1:07pm No vital signs result information available. Interventions No Information Plan of Treatment The data below is from unstructured sources Discharge Date 01/19/16 3:20pm Instructions/Education Provided COLO NOSCOPY EGD-ESOPHAGOGASTRODUODENOSCOPY Prescriptions See Medication Section Prescriptions Prescriptions See Medication Section Goals Patient Goal Desired Goal no information no information Social History Normalized Code Original Code Date Value no information no information 05-02-2019 N - SEE CERNER no information no information 01-19-2016 Cigarettes no information no information 01-26-2010 No Sex Assigned At Sex Assigned At no information M luz Functional Status The data below is from unstructured sourcesNo functional status results.No functional status results.No functional status results.No functional status results.No functional status results.No functional status results.No functional status results.No functional status information avai lable.No functional status information available.No functional status informatio n available.No functional status information available.No Functional Status info rmation availableNo Functional Status information available Mental Status The data below is from unstructured sourcesNo Mental Status Information Available Encounters Encounter Normalized Encounter Encounter Diagnosis Care Provi yanet Organization Date Type 04-26-2018 Discharged Recurring no information [employer] [employer] no organization name - 07-26-2018 10-24-2017 Discharged Recurring no information [employer] [employer] no organization name - 01-23-2018 04-26-2018 Patient encounter no information no name no or ganization name - 07-25-2018 01-23-2018 Patient encounter no information no name no or ganization name 10-24-2017 Patient encounter no information no name no or ganization name - 01-22-2018 10-03-2017 Patient encounter no information no name no or ganization name 05-10-2017 Patient encounter no information no name no or ganization name 11-22-2016 Patient encounter no information no name no or ganization name 08-30-2016 Patient encounter no information no name no or ganization name 08-26-2016 Patient encounter no information no name no or ganization name 03-01-2016 Patient encounter no information no name no or ganization name 02-24-2016 Patient encounter no information no name no or ganization name - 05-24-2016 01-19-2016 Patient encounter no information no name no or ganization name - 01-19-2016 01-14-2016 Patient encounter no information no name no or ganization name 01-11-2016 Patient encounter no information no name no or ganization name 12-07-2015 Patient encounter no information no name no or ganization name - 02-17-2016 11-17-2015 Patient encounter no information no name no or ganization name 08-25-2015 Patient encounter no information no name no or ganization name 05-26-2015 Patient encounter no information no name no or ganization name 05-18-2015 Patient encounter no information no name no or ganization name 03-03-2015 Patient encounter no information no name no or ganization name - 03-25-2015 11-18-2014 Patient encounter no information no name no or ganization name 10-22-2014 Patient encounter no information no name no or ganization name - 12-30-2014 10-16-2014 Patient encounter no information no name no or ganization name 10-09-2014 Patient encounter no information no name no or ganization name 09-19-2014 Patient encounter no information no name no or ganization name 09-17-2014 Patient encounter no information no name no or ganization name 09-15-2014 Patient encounter no information no name no or ganization name 06-27-2014 Patient encounter no information no name no or ganization name 06-23-2014 Patient encounter no information no name no or ganization name 06-16-2014 Patient encounter no information no name no or ganization name NEGATED Patient encounter no information no name no or ganization name 08-27-2012 11-21-2019 Patient encounter no information LIBRADO BLUNT MD (no [facility] procedure phone) [facility] (no phone) 11-19-2019 Patient encounter no information JUSTICE DRUMMOND (no ph one) Community [facility] (no phone) (no phone) [facility] (no phone) 08-23-2019 Patient encounter no information (no phone) [facility] (no phone) 08-07-2019 Patient encounter no information (no phone) [facility] (no phone) 08-01-2019 Patient encounter no information LIBRADO BLUNT MD (no [facility] procedure phone) [facility] (no phone) 07-01-2019 Patient encounter no information no name no or ganization name procedure 05-02-2019 Patient encounter no information LIBRADO BLUNT MD (no [facility] - procedure phone) [facility] 07-30-2019 (no phone) 2019 Patient encounter no information no name no or ganization name procedure 02-14-2019 Patient encounter no information no name no or ganization name procedure 02-14-2019 Patient encounter no information no name no or ganization name procedure 01-22-2019 Patient encounter no information no name no or ganization name procedure 01-03-2019 Patient encounter no information no name no or ganization name procedure 12-20-2018 Patient encounter no information no name no or ganization name procedure 12-14-2018 Patient encounter no information no name no or ganization name procedure 11-29-2018 Patient encounter no information no name no or ganization name procedure 11-28-2018 Patient encounter no information no name no or ganization name procedure 11-27-2018 Patient encounter no information no name no or ganization name procedure 11-21-2018 Patient encounter no information no name no or ganization name procedure 11-15-2018 Patient encounter no information no name no or ganization name procedure 11-15-2018 Patient encounter no information no name no or ganization name procedure 10-24-2018 Patient encounter no information no name no or ganization name - procedure 01-22-2019 10-24-2018 Patient encounter no information no name no or ganization name - procedure 01-21-2019 10-04-2018 Patient encounter no information no name no or ganization name procedure 09-26-2018 Patient encounter no information no name no or ganization name procedure 09-25-2018 Patient encounter no information no name no or ganization name procedure 07-26-2018 Patient encounter no information no name no or ganization name procedure 05-25-2016 Patient encounter no information no name no or ganization name procedure 01-19-2016 Patient encounter no information no name no or ganization name procedure 08-27-2012 Patient encounter no information no name no or ganization name procedure no information Encounter for other no name no organiz ation name preprocedural examination Medical Equipment The data below is from unstructured sourcesNo Medical Equipment Information available Payers Normalized Payer Value [facility] no information ([id number]) Medicare [id number] ([id number]) Medicare no information ([id number]) Evaluation note Note Type Note Facility Evaluation No Assessments Information Available A [facility] note [facility] ([id number]) Advance Directives Directive Response Recor ded Date/Time Advance Directives Yes 0 01/19/16 1:02pm Health Care Power of Executive Director Of Nursing Yes 01/19/16 1:02pm Organ Donor Yes 01/19/16 1:02pm Resuscitation Status Full Code 01/19/16 1:02pm Directive Response Recor ded Date/Time Advance Directives Yes 0 01/19/16 1:02pm Health Care Power of Executive Director Of Nursing Yes 01/19/16 1:02pm Organ Donor Yes 01/19/16 1:02pm Directive Response Recor ded Date/Time Advance Directives Yes 0 01/26/10 7:00am Organ Donor Yes 01/26/10 7:00am Advance Directive Response Recorded Date/Time Advance Directives Yes J 2015 1:02pm Health Care Power of Executive Director Of Nursing Yes January 19, 2016 1:02pm Organ Donor Yes December 1:02pm Discharge Instructions Patient Instructions Physician Instructions Plan of Care/Instructions/FU: If patient has any problems or change in condition, he will need to have another colonoscopy. Call Dr. Womack's office with any questions or concerns Activity as Tolerated: Yes Discharge Diet: No Restrictions Care Plan Patient Instructions:: If patient has any problems or change in condition, he will need to haveanother colonoscopy.Call Dr. Womack's office with any questions or concerns Current inpatient/outpatient. Discharge instructions are currently unavailable.No hospital discharge instructions.No hospital discharge instructions.No hospital discharge instruction information available.No hospital discharge instruction information available. Additional Source Comments This clinical document has been generated using [employer] software that has been certified by the Office of the National Coordinator for Health Information Technology (ONC 15.99.04.3023.Diam.31.00.0.919357) and the National Committee for [employer]inter [employer] (NCQA, as an eMeasure certified technology). FOR RECORDS PERTAINING TO PATIENTS WHO ARE OR HAVE BEEN ENROLLED IN A CHEMICAL D EPENDENCY/SUBSTANCE ABUSE PROGRAM, SOME INFORMATION MAY BE OMITTED. This clinica l summary was aggregated from multiple sources. Caution should be exercised in using it in the provision of clinical care. This summary normalizes information from multiple sources, and as a consequence, information in this document may ma terially change the coding, format and clinical context of patient data. In dory tion, data may be omitted in some cases. CLINICAL DECISIONS SHOULD BE BASED ON T HE PRIMARY CLINICAL RECORDS. [employer] provides no warranty or guara ntee of the accuracy or completeness of information in this document.The followi ng information is based on time limited clinical information
--- OUTSIDE RECORDS SUMMARY | 2019-11-22 13:13 | XMS REPORT | CCD ---
Author Author Auto ERIC Iverson [facility] er Address Unknown Phone Unavailable Care Team Providers Care Pan Shaker Name Role Phone HODA JADE, DR. Sridhar RENDON PP [phone] LUZMA CACERES MD CP [phone] REFERRING MD, NO RP Unavailable Allergies, Adverse [...] Medication Instructions Start Date End Date Status [place]-500 1,000 mg =, PO, Daily, # 50 TAB, 12/31/2010 Ordered 12/31/10 12:24:07 Ecotrin Baby 162 mg, PO, Daily, # 60 TAB 12/31/2010 Or dered CoLACE sodium 100 mg = 1 CAP, PO, BID (2 times a day), # 01/2011 Ordered oral capsule 30 CAP Pacerone 200 mg oral = 2 TAB, PO, BID (2 times a day), # 01/2011 Ordered tablet 65 TAB, Take Amiodarone 400 mg twice daily for one week, then decrease dose to 400mg daily for two weeks, then decrease dose to 200mg daily Take Amiodarone 400mg twice daily for one week, then decrease dose to 400mg daily for two weeks, then decrease dose to 200mg daily lisinopril 5 mg oral = 0.5 TAB, PO, Daily, # 30 TAB 1 Ordered tablet PERcocet 5/325 1 TAB, PO, Q6H (Every 6 hours), PRN 12/31/2010 Ordered as needed for pain, # 24 TAB, 12/31/10 12:27:37 Motrin 400 mg, PO, Q8H (Every 8 hours), 12/31/2010 Ordered PRN Pain, # 40 TAB Tylenol 650 mg, MN, Q6H (Every 6 hours), 12/31/2010 Ordered PRN Other (see comment), # 40 TAB, Use only if not taking Percocet Use only if not taking Percocet Milk of Magnesia 45 mL, PO, Daily, PRN Other (see 12/31/2010 Ordered comment), # 360 mL, 12/31/10 12:24:52 Theragran 1 TAB, PO, Daily, # 50 TAB, 12/31/2010 Or dered 12/31/10 12:24:39 Vital Signs Most recent to oldest [Reference Range]: 1 2 3 Temperature [96.8-99.7 DegF] 98.2 DegF (12/31/2010 08:00:00) Temp Method Oral (12/31/2010 08:00:00) Heart Rate 60 bpm (12/31/2010 08:00:00) Heart Rate Location Continuous [employer] (12/31/2010 08:00:00) Respiratory Rate [14-20 br/min] 16 br/min (12/31/2010 08:00:00) Systolic Blood Pressure [90-140 mmHg] 112 mmHg (12/30/2010 03:59:00) 109 mmHg (12/30/2010 03:59:00) 136 mmHg (12/30/2010 03:59:00) Diastolic Blood Pressure [60-90 mmHg] 68 mmHg (12/30/2010 03:59:00) 65 mmHg (12/30/2010 03:59:00) 77 mmHg (12/30/2010 03:59:00) Inet NIBP Systolic [71-219 mmHg] 108 mmHg (12/31/2010 08:00:00) Inet NIBP Diastolic [50-90 mmHg] 69 mmHg (12/31/2010 08:00:00) NIBP MAP 76 mmHg (12/31/2010 08:00:00) NIBP MAP Calc 82 (12/31/2010 08:00:00) NIBP Alarms set and on Yes (12/31/2010 08:00:00) Inet A-Line Systolic 110 mmHg (12/26/2010 11:00:00) Inet A-Line Diastolic 56 mmHg (12/26/2010 11:00:00) A-Line MAP 73 mmHg (12/26/2010 11:00:00) BP Location Arm, left (12/31/2010 08:00:00) BP Cuff Size Medium (12/29/2010 08:00:00) Heart Rhythm Pacemaker, atrial (12/31/2010 08:00:00) A-Line Location Left, Brachial (12/26/2010 11:00:00) Vital Signs Status Vital signs taken (12/29/2010 05:48:00) Vital Signs Status/Type Post treatment (12/31/2010 07:26:00) Procedures Procedures Date Related Diagnosis ([place])coronary bypass of one coronary artery 2010 00:00:00 Angiocardiography of left heart structures 1 00:00:00 Coronary arteriography using two catheters 1 00:00:00 Extracorporeal circulation auxiliary to open heart reid rgery 12/25/2010 00:00:00 Left heart cardiac catheterization 12/23/2010 00:00: 00 Single internal mammary-coronary artery bypass 12/25 00:00:00
--- OUTSIDE RECORDS SUMMARY | 2019-11-22 13:14 | XMS REPORT | CCD ---
Author Author Auto ERIC Iverson [facility] er Address Unknown Phone Unavailable Care Team Providers Care Armored Service Technician Name Role Phone HODA JADE, DR. Sridhar RENDON PP [phone] DANDRE JADE, DR. VILLARREAL CP [phone] RITTER JADE, LUZMA Carrillo RP [phone] Results ENDOCRINE/TUMOR MARKER Most recent to oldest [Reference Range]: 1 TSH [0.35-5.50 microInter.Units/mL] 1.71 microInter.Un its/mL 1 (11/02/2010 12:36:00) 1Interpretive Data: ranges determined by [facility].
--- OUTSIDE RECORDS SUMMARY | 2019-11-22 13:14 | XMS REPORT | CCD ---
Author Author Auto ERIC Iverson [facility] er Address Unknown Phone Unavailable Care Team Providers Care Sheet Roller Operator Name Role Phone DR. Sridhar DRUMMOND MD PP [phone] REFERRING MD, AISHWARYA RP Unavailable DR. Lorena MATAMOROS DO CP [phone] Allergies, Adverse Reactions, Alerts Substance Reaction Status [...]
--- OUTSIDE RECORDS SUMMARY | 2019-11-22 13:14 | XMS REPORT | CCD ---
Author Author Auto ERCI Iverson [facility] er Address Unknown Phone Unavailable Care Team Providers Care Tourist Agent Name Role Phone HODA JADE, DR. Sridhar RENDON PP [phone] DR. Kym BOGGS DO CP [phone] REFERRING MD, NO RP Unavailable Results HEMATOLOGY Most recent to oldest [Reference Range]: 1 WBC [4.0-11.0 x10'3/microL] 6.0 x10'3/microL (11/08/2010 06:45:00) RBC [4.50-6.50 x10'6/microL] 4.57 x10'6/microL (11/08/2010 06:45:00) Hgb [13.5-18.0 g/dL] 15.2 g/dL (11/08/2010 06:45:00) Hct [40-52 %] 43 % (11/08/2010 06:45:00) Platelet [140-400 x10'3/microL] 150 x10'3/microL (11/08/2010 06:45:00) MCV [81-99 fL] 94 fL (11/08/2010 06:45:00) MCH [27-34 pg] 33 pg (11/08/2010 06:45:00) MCHC [32-36 g/dL] 36 g/dL (11/08/2010 06:45:00) RDW [<=14.5 %] 13.2 % (11/08/2010 06:45:00) MPV [6.5-10.4 fL] 7.1 fL (11/08/2010 06:45:00) Neutrophils % [44-76 %] 70 % (11/08/2010 06:45:00) Lymphocytes % [13-43 %] 16 % (11/08/2010 06:45:00) Monocytes % [0-13 %] 10 % (11/08/2010 06:45:00) Eosinophils % [0-7 %] 3 % (11/08/2010 06:45:00) Basophils % [0-3 %] 1 % (11/08/2010 06:45:00) Neutrophils Abs [1.4-7.2 x10'3/microL] 4.2 x10'3/micro L (11/08/2010 06:45:00) Lymphocytes Abs [1.2-3.4 x10'3/microL] 1.0 x10'3/micro L *LOW* (11/08/2010 06:45:00) Monocytes Abs [0.1-0.6 x10'3/microL] 0.6 x10'3/microL (11/08/2010 06:45:00) Eosinophils Abs [0.0-0.5 x10'3/microL] 0.2 x10'3/micro L (11/08/2010 06:45:00) Basophils Abs [0.0-0.2 x10'3/microL] 0.0 x10'3/microL (11/08/2010 06:45:00) PT [11.5-14.5 second] 14.0 second (11/08/2010 06:45:00) INR 1.1 *NA* (11/08/2010:45:00) PTT [20-35 second] 34 second 1 (11/08/2010 06:45:00) 1Interpretive Data: See physician orders for patient-specific therapeutic goal when using unfractionated heparin. CHEMISTRY Most recent to oldest [Reference Range]: 1 Sodium [136-144 mmol/L] 137 mmol/L (11/08/2010 06:45:00) Potassium [3.6-5.1 mmol/L] 5.5 mmol/L 2 *HI* (11/08/2010:45:00) Chloride [101-111 mmol/L] 104 mmol/L (11/08/2010 06:45:00) CO2 [22-32 mmol/L] 27 mmol/L (11/08/2010 06:45:00) AGAP [3-19 mmol/L] 6 mmol/L (11/08/2010 06:45:00) Glucose [70-100 mg/dL] 108 mg/dL 3 *HI* (11/08/2010 06:45:00) BUN [8-20 mg/dL] 20 mg/dL (11/08/2010 06:45:00) Creatinine [0.7-1.3 mg/dL] 1.0 mg/dL (11/08/2010 06:45:00) Calcium [8.4-10.2 mg/dL] 9.0 mg/dL (11/08/2010 06:45:00) GFR (MDRD) 73.5 mL/min/1.73 m2 4 *NA* (11/08/2010 06:45:00) Est CrCL (CG) 76.0 mL/min 5 (11/08/2010 06:45:00) Hgb A1c [4.4-6.0 %] 5.3 % (11/08/2010 06:45:00) Estimated Average Glucose 105 mg/dL *NA* (11/08/2010 06:45:00) Cholesterol [<=200 mg/dL] 139 mg/dL (11/08/2010 06:45:00) HDL [>=40 mg/dL] 41 mg/dL 6 (11/08/2010 06:45:00) LDL Direct [<=100 mg/dL] 80 mg/dL 7 (11/08/2010 06:45:00) Chol/HDL Ratio [<=4.5] 3.4 (11/08/2010 06:45:00) Triglycerides [<=150 mg/dL] 65 mg/dL 8 (11/08/2010 06:45:00) 2Result Comment: Specimen slightly hemolyzed which may affect results. 3Interpretive Data: Interpretative Data: 100-125 = Impaired Fasting Glucose > or = 126 = Provisional diagnosis of diabetes. 4Result Comment: GFR calculated based on MDRD abbreviated formula. Age(years) Average GFR 20-29 116 ml/min/1.73 m2 30-39 107 ml/min/1.73 m2 40-49 99 ml/min/1.73 m2 50-59 93 ml/min/1.73 m2 60-69 85 ml/min/1.73 m2 70+ 75 ml/min/1.73 m2 Acceptable GFR =>60 ml/min/1.73 m2 Chronic Kidney Disease <60 ml/min/1.73 m2 Kidney Failure <15 ml/min/1.73 m2 5Result Comment: Estimated Creatinine Clearance calculated based on the Cockcroft-Gault formula. 6Interpretive Data: Interpretation: Cardiac Risk <40 mg/dL; Optimal >60 mg/dL 7Interpretive Data: Interpretation: Optimal <100 mg/dl Borderline High: 130-159 mg/dl Risk >160 mg/dl 8Interpretive Data: Normal: Less than 150 mg/dL Borderline high: 150 - 199 mg/dL High: 200 - 500 mg/dL Very high: Greater than 500 mg/dL
--- OUTSIDE RECORDS SUMMARY | 2019-11-22 13:14 | XMS REPORT | CCD ---
Author Author Auto Kishor ERIC L [facility] er Address Unknown Phone Unavailable Care Team Providers Care Sfdc Consultant Name Role Phone DR. Sridhar DRUMMOND MD PP [phone] REFERRING MD, AISHWARYA RP Unavailable DR. oLrena MATAMOROS DO CP [phone] Results HEMATOLOGY Most recent to oldest [Reference Range]: 1 WBC [4.0-11.0 x10'3/microL] 7.0 x10'3/microL (01/10/2011 13:36:00) RBC [4.50-6.50 x10'6/microL] 3.65 x10'6/microL *LOW* (01/10/2011 13:36:00) Hgb [13.5-18.0 g/dL] 11.8 g/dL *LOW* (01/10/2011 13:36:00) Hct [40-52 %] 34 % *LOW* (01/10/2011 13:36:00) Platelet [140-400 x10'3/microL] 436 x10'3/microL *HI* (01/10/2011 13:36:00) MCV [81-99 fL] 95 fL (01/10/2011 13:36:00) MCH [27-34 pg] 32 pg (01/10/2011 13:36:00) MCHC [32-36 g/dL] 34 g/dL (01/10/2011 13:36:00) RDW [<=14.5 %] 14.0 % (01/10/2011 13:36:00) MPV [6.5-10.4 fL] 6.4 fL *LOW* (01/10/2011 13:36:00) Neutrophils % [44-76 %] 76 % (01/10/2011 13:36:00) Lymphocytes % [13-43 %] 11 % *LOW* (01/10/2011 13:36:00) Monocytes % [0-13 %] 7 % (01/10/2011 13:36:00) Eosinophils % [0-7 %] 5 % (01/10/2011 13:36:00) Basophils % [0-3 %] 1 % (01/10/2011 13:36:00) Neutrophils Abs [1.4-7.2 x10'3/microL] 5.3 x10'3/micro L (01/10/2011 13:36:00) Lymphocytes Abs [1.2-3.4 x10'3/microL] 0.8 x10'3/micro L *LOW* (01/10/2011 13:36:00) Monocytes Abs [0.1-0.6 x10'3/microL] 0.5 x10'3/microL (01/10/2011 13:36:00) Eosinophils Abs [0.0-0.5 x10'3/microL] 0.3 x10'3/micro L (01/10/2011 13:36:00) Basophils Abs [0.0-0.2 x10'3/microL] 0.0 x10'3/microL (01/10/2011 13:36:00) CHEMISTRY Most recent to oldest [Reference Range]: 1 Sodium [136-145 mmol/L] 135 mmol/L *LOW* (01/10/2011 13:36:00) Potassium [3.5-5.1 mmol/L] 4.4 mmol/L (01/10/2011 13:36:00) Chloride [98-107 mmol/L] 99 mmol/L (01/10/2011 13:36:00) CO2 [22-29 mmol/L] 29 mmol/L (01/10/2011 13:36:00) AGAP [3-19 mmol/L] 7 mmol/L (01/10/2011 13:36:00) Glucose [70-100 mg/dL] 101 mg/dL *HI* (01/10/2011 13:36:00) BUN [8-20 mg/dL] 17 mg/dL (01/10/2011 13:36:00) Creatinine [0.7-1.2 mg/dL] 1.0 mg/dL (01/10/2011 13:36:00) Calcium [8.6-10.2 mg/dL] 9.7 mg/dL (01/10/2011 13:36:00) GFR (MDRD) 76.1 mL/min/1.73 m2 1 *NA* (01/10/2011 13:36:00) Est CrCL (CG) 77.7 mL/min 2 (01/10/2011 13:36:00) Albumin Level [3.5-5.2 g/dL] 4.0 g/dL (01/10/2011 13:36:00) Total Protein [6.6-8.7 g/dL] 7.4 g/dL (01/10/2011 13:36:00) Alk Phos [35-105 Inter. Units/L] 126 Inter. Units/L *HI* (01/10/2011 13:36:00) AST [0-40 Units/L] 19 Units/L (01/10/2011 13:36:00) ALT [0-41 Inter. Units/L] 24 Inter. Units/L (01/10/2011 13:36:00) Bili Total [0.0-1.2 mg/dL] 0.4 mg/dL (01/10/2011 13:36:00) 1Result Comment: GFR calculated based on MDRD abbreviated formula. Age(years) Average GFR 20-29 116 ml/min/1.73 m2 30-39 107 ml/min/1.73 m2 40-49 99 ml/min/1.73 m2 50-59 93 ml/min/1.73 m2 60-69 85 ml/min/1.73 m2 70+ 75 ml/min/1.73 m2 Acceptable GFR =>60 ml/min/1.73 m2 Chronic Kidney Disease <60 ml/min/1.73 m2 Kidney Failure <15 ml/min/1.73 m2 2Result Comment: Estimated Creatinine Clearance calculated based on the Cockcroft-Gault formula. URINE Most recent to oldest [Reference Range]: 1 UA Color Yellow (01/10/2011 13:36:00) UA pH [5.0-8.0] 7.0 (01/10/2011 13:36:00) UA Spec Grav [1.001-1.030] 1.010 (01/10/2011 13:36:00) UA Glucose [Negative mg/dL] Negative mg/dL (01/10/2011 13:36:00) UA Bili [Negative] Negative (01/10/2011 13:36:00) UA Ketones [Negative mg/dL] Negative mg/dL (01/10/2011 13:36:00) UA Blood [Negative] Negative (01/10/2011 13:36:00) UA Protein [Negative mg/dL] Negative mg/dL (01/10/2011 13:36:00) UA Nitrite [Negative] Negative (01/10/2011 13:36:00) UA Leuk Est [Negative] Negative (01/10/2011 13:36:00) UA Urobilinogen [0.2-1.0 EU per dL] 0.2 EU per dL (01/10/2011 13:36:00) UA Spec Type Unspecified *NA* (01/10/2011 13:36:00) Microscopic? No (01/10/2011 13:36:00)
--- OUTSIDE RECORDS SUMMARY | 2019-11-22 13:15 | XMS REPORT | Continuity of Care Document ---
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 er CAD (coronary artery disease) Active 12/23/2010 Problem 07/27/2011 [facility] Hyperlipidemia Active 12/23/2010 Problem 07/27/[address] [facility] er Hypertension Active 12/23/2010 Problem 07/27/[address] [facility] er Cardiac pacemaker Active Problem 07/27/[address] [facility] History of AAA (abdominal aortic aneurysm) repair1 Active Problem 07/27/2011 1S/P stent [facility] Nausea Active Problem 07/27/2011 [facility] PAF (paroxysmal atrial fibrillation) Active Problem 06/[address] [facility] er Medications Medication Details Route Status Patient Instructions Ordering Provider Order Date Source Ambien 10 mg oral tablet 10 mg , PO, QHS (At bedtime), PRN Sleep/Insomnia PO Ordered 01/10/2011 [facility] PROzac 20 mg oral capsule 20 m g, PO, Daily PO Ordered 01/10/2011 [facility] metoprolol 25 mg oral tablet 2 5 mg, PO, BID (2 times a day) PO Ordered 01/10/2011 [facility] PERcocet 5/325 1 TAB, PO, Q6H (Every 6 hours), PRN as needed for pain, # 24 TAB, 12/31/10 12:27:37 PO Ordered MES GEMMA 12/31/2010 [facility] Motrin 400 mg, PO, Q8H (Every 8 hours), PRN Pain, # 40 TAB PO Ordered MESMER 01/2011 [facility] Tylenol 650 mg, MI, Q6H (Every 6 hours), PRN Other (see comment), # 40 TAB, Use only if not taking PercocetUse only if not taking Percocet MI Ordered [facility] 01[facility]2011 [facility] Milk of Magnesia 45 mL, PO, Da kathy, PRN Other (see comment), # 360 mL, 12/31/10 12:24:52 PO Ordered [facility] GEMMA 12/31/2010 [facility] Theragran 1 TAB, PO, Daily, # 50 TAB, 12/31/10 12:24:39 PO Ordered [facility] 01/2011 [facility] Ecotrin Baby 162 mg, PO, Daily , # 60 TAB PO Ordered [facility] 12/31/2010 [facility] Dundee-500 1,000 mg =, PO, Rani y, # 50 TAB, 12/31/10 12:24:07 PO Ordered [facility] 01/2011 [facility] CoLACE sodium 100 mg oral capsule = 1 CAP, PO, BID (2 times a day), # 30 CAP PO Ordered MESMER 12/31/2010 [facility] Pacerone 200 mg oral tablet = 2 TAB, PO, BID (2 times a day), # 65 TAB, Take Amiodarone 400mg twice daily for one week, then decrease dose to 400mg daily for two weeks, then decrease dose to 200mg dailyTake Amiodarone 400mg twice daily for one week, then decrease dose to 400mg daily for two weeks, then decrease dose to 200mg daily PO Ordered MES GEMMA 12/31/2010 [facility] lisinopril 5 mg oral tablet = 0.5 TAB, PO, Daily, # 30 TAB PO Ordered [facility] 01/2011 [facility] simvastatin 20 mg, PO, QHS (At bedtime), 11/08/10 6:17:21 PO Ordered 11/08/2010 [facility] Allergies, Adverse Reactions, Alerts Substance Category Reaction Severity Reaction type Status Date Reported Comments Source penicillin drug allergy Allergy Act tiffany [facility] sulfADIAZINE drug allergy Allergy Active [facility] Immunizations No Data Provided for This Section Results Order Name Results Value Reference Range Date Interpretation Comments Source CHEMISTRY GFR (MDRD) 76.1 m L/min/1.73 m2 01/10/2011 NA <sup>1</sup>Result Comment: GFR calculat ed based on MDRD abbreviated formula.

Age(years) Average GFR
20-29 116 ml/min/1.73 m2
30-39 107 ml/min/1.73 m2
40-49 99 ml/min/1.73 m2
50-59 93 ml/min/1.73 m2
60-69 85 ml/min/1.73 m2
70+ 75 ml/min/1.73 m2

Acceptable GFR =>60 ml/min/1.73 m2
Chronic Kidney Disease <60 ml/min/1.73 m2
Kidney Failure <15 ml/min/1.73 m2 [facility] CHEMISTRY Est CrCL (CG) 77.7 m L/min 01/10/2011 <sup>2</sup>Result Comment: Estimated Cr eatinine Clearance calculated based on the Cockcroft-Gault formula. [facility] CHEMISTRY Potassium 4.4 mmol/L 3.5 - 5.1 01/10/[address] [facility] er CHEMISTRY Sodium 135 mmol/L 136 - 145 01/10/[address] [facility] er CHEMISTRY AGAP 7 mmol/L 3 - 19 01/10/[address] [facility] er CHEMISTRY CO2 29 mmol/L 22 - 29 01/10/[address] [facility] er CHEMISTRY BUN 17 mg/dL 8 - 20 01/10/[address] [facility] er CHEMISTRY Chloride 99 mmol/L 98 - 107 01/10/[address] [facility] er CHEMISTRY Glucose 101 mg/dL 70 - 100 01/10/[address] [facility] er CHEMISTRY Albumin Level 4.0 g/ dL 3.5 - 5.2 01/10/[address] [facility] er CHEMISTRY Total Protein 7.4 g/ dL 6.6 - 8.7 01/10/[address] [facility] er CHEMISTRY Bili Total 0.4 mg/dL 0.0 - 1.2 01/10/[address] [facility] er CHEMISTRY Creatinine 1.0 mg/dL 0.7 - 1.2 01/10/[address] [facility] er CHEMISTRY Calcium 9.7 mg/dL 8.6 - 10.2 01/10/[address] [facility] er CHEMISTRY ALT 24 Int er. Units/L 0 - 41 01/10/[address] [facility] er CHEMISTRY AST 19 Units/L 0 - 40 01/10/[address] [facility] er CHEMISTRY Alk Phos [address] Units/L 35 - 105 01/10/2011 [facility] er HEMATOLOGY Eosinophils Abs 0.3 x 10'3/microL 0.0 - 0.5 01/10/2011 [facility] HEMATOLOGY Lymphocytes Abs 0.8 x 10'3/microL 1.2 - 3.4 01/10/2011 LOW [facility] HEMATOLOGY Monocytes Abs 0.5 x 10'3/microL 0.1 - 0.6 01/10/[address] [facility] er HEMATOLOGY Eosinophils % 5 % 0 - 7 01/10/[address] [facility] er HEMATOLOGY Basophils % 1 % 0 - 3 01/10/[address] [facility] er HEMATOLOGY Monocytes % 7 % 0 - 13 01/10/[address] [facility] er HEMATOLOGY Neutrophils Abs 5.3 x 10'3/microL 1.4 - 7.2 01/10/2011 [facility] HEMATOLOGY Basophils Abs 0.0 x 10'3/microL 0.0 - 0.2 01/10/[address] [facility] er HEMATOLOGY Lymphocytes % 11 % 13 - 43 01/10/[address] [facility] er HEMATOLOGY Neutrophils % 76 % 44 - 76 01/10/[address] [facility] er HEMATOLOGY Platelet 436 x 10'3/microL 140 - 400 01/10/2011 [facility] er HEMATOLOGY MPV 6.4 fL 6.5 - 10.4 01/10/[address] [facility] er HEMATOLOGY RBC 3.65 x10'6/microL 4.50 - 6.50 01/10/[address] [facility] er HEMATOLOGY Hgb 11.8 g/dL 13.5 - 18.0 01/10/[address] [facility] er HEMATOLOGY MCV 95 fL 81 - 99 01/10/[address] [facility] er HEMATOLOGY Hct 34 % 40 - 52 01/10/[address] [facility] er HEMATOLOGY MCH 32 pg 27 - 34 01/10/[address] [facility] er HEMATOLOGY MCHC 34 g/dL 32 - 36 01/10/[address] [facility] er HEMATOLOGY WBC 7.0 x 10'3/microL 4.0 - 11.0 01/10/[address] [facility] er HEMATOLOGY RDW 14.0 % <=14.5 01/10/[address] [facility] er URINE Microscopic? No
(0 01/10/2011 13:36:00) <sup> </sup> 01/10/2011 [facility] URINE UA Nitrite Negative < br/>(01/10/2011 13:36:00) <sup> </sup> Negative 01/10/2011 [facility] URINE UA Leuk Est Negative < br/>(01/10/2011 13:36:00) <sup> </sup> Negative 01/10/2011 [facility] URINE UA Urobilinogen 0.2 EU per dL 0.2 - 1.0 01/10/[address] [facility] er URINE UA Protein Negative m g/dL
(01/10/2011 13:36:00) <sup> </sup> Negative 01/10/2011 [facility] URINE UA pH 7.0 5.0 - 8.0 01/10/2011 [facility] URINE UA Spec Type Unspecifie d
*NA*
(01/10/2011 13:36:00) <sup> </sup> 01/10/2011 NA [facility] URINE UA Color Yellow
(01/10/2011 13:36:00) <sup> </sup> 01/10/2011 [facility] URINE UA Blood Negative < br/>(01/10/2011 13:36:00) <sup> </sup> Negative 01/10/2011 [facility] URINE UA Spec Grav 1.010 <br/ >(01/10/2011 13:36:00) <sup> </sup> 1.001 - 1.030 01/10/2011 [facility] URINE UA Ketones Negative m g/dL
(01/10/2011 13:36:00) <sup> </sup> Negative 01/10/2011 [facility] URINE UA Bili Negative < br/>(01/10/2011 13:36:00) <sup> </sup> Negative 01/10/2011 [facility] URINE UA Glucose Negative m g/dL
(01/10/2011 13:36:00) <sup> </sup> Negative 01/10/2011 [facility] CHEMISTRY Est CrCL (CG) 112.2 mL/min 12/30/2010 <sup>10</sup>Result Comment: Estimated C reatinine Clearance calculated based on the Cockcroft-Gault formula. [facility] CHEMISTRY GFR (MDRD) 110.9 mL/min/1.73 m2 12/30/2010 NA <sup>7</sup>Result Comment: GFR calculat ed based on MDRD abbreviated formula.

Age(years) Average GFR
20-29 116 ml/min/1.73 m2
30-39 107 ml/min/1.73 m2
40-49 99 ml/min/1.73 m2
50-59 93 ml/min/1.73 m2
60-69 85 ml/min/1.73 m2
70+ 75 ml/min/1.73 m2

Acceptable GFR =>60 ml/min/1.73 m2
Chronic Kidney Disease <60 ml/min/1.73 m2
Kidney Failure <15 ml/min/1.73 m2 [facility] CHEMISTRY Calcium 9.0 mg/dL 8.6 - 10.2 12/30/[address] [facility] er CHEMISTRY Creatinine 0.7 mg/dL 0.7 - 1.2 12/30/[address] [facility] er CHEMISTRY CO2 32 mmol/L 22 - 29 12/30/2010 [facility] CHEMISTRY Sodium 136 mmol/L 136 - 145 12/30/[address] [facility] er CHEMISTRY Potassium 3.8 mmol/L 3.5 - 5.1 12/30/[address] [facility] er CHEMISTRY Glucose 107 mg/dL 70 - 100 12/30/2010 [facility] er CHEMISTRY BUN 14 mg/dL 8 - 20 12/30/[address] [facility] er CHEMISTRY AGAP 4 mmol/L 3 - 19 12/30/[address] [facility] er CHEMISTRY Chloride 100 mmol/L 98 - 107 12/30/[address] [facility] er CHEMISTRY Glucose Level (POC) 108 mg /dL 70 - 100 12/29/2010 HI <sup>4</sup>Interpretive Data: Interpret ative Data: 100-125 = Impaired Fasting Glucose
> or = 126 = Provisional diagnosis of diabetes.
[facility] CHEMISTRY Glucose Level (POC) 105 mg /dL 70 - 100 12/29/2010 HI <sup>5</sup>Interpretive Data: Interpret ative Data: 100-125 = Impaired Fasting Glucose
> or = 126 = Provisional diagnosis of diabetes.
[facility] CHEMISTRY Glucose Level (POC) 107 mg /dL 70 - 100 12/28/2010 HI <sup>6</sup>Interpretive Data: Interpret ative Data: 100-125 = Impaired Fasting Glucose
> or = 126 = Provisional diagnosis of diabetes.
[facility] CHEMISTRY Est CrCL (CG) 78.5 m L/min 12/27/2010 <sup>11</sup>Result Comment: Estimated C reatinine Clearance calculated based on the Cockcroft-Gault formula. [facility] CHEMISTRY GFR (MDRD) 77.0 m L/min/1.73 m2 12/27/2010 NA <sup>8</sup>Result Comment: GFR calculat ed based on MDRD abbreviated formula.

Age(years) Average GFR
20-29 116 ml/min/1.73 m2
30-39 107 ml/min/1.73 m2
40-49 99 ml/min/1.73 m2
50-59 93 ml/min/1.73 m2
60-69 85 ml/min/1.73 m2
70+ 75 ml/min/1.73 m2

Acceptable GFR =>60 ml/min/1.73 m2
Chronic Kidney Disease <60 ml/min/1.73 m2
Kidney Failure <15 ml/min/1.73 m2 [facility] CHEMISTRY Potassium 4.1 mmol/L 3.5 - 5.1 12/27/[address] [facility] er CHEMISTRY Sodium 134 mmol/L 136 - 145 12/27/[address] [facility] er CHEMISTRY CO2 27 mmol/L 22 - 29 12/27/[address] [facility] er CHEMISTRY AGAP 3 mmol/L 3 - 19 12/27/[address] [facility] er CHEMISTRY Chloride 104 mmol/L 98 - 107 12/27/[address] [facility] er CHEMISTRY BUN 17 mg/dL 8 - 20 12/27/[address] [facility] er CHEMISTRY Creatinine 1.0 mg/dL 0.7 - 1.2 12/27/[address] [facility] er CHEMISTRY Calcium 8.2 mg/dL 8.6 - 10.2 12/27/[address] [facility] er CHEMISTRY Glucose 149 mg/dL 70 - 100 12/27/[address] [facility] er CHEMISTRY Magnesium 2.5 mg/dL 1.6 - 2.6 12/27/2010 <sup>13</sup>Interpretive Data: Critical High for OB Patients >=7.0 mg/dl. [facility] HEMATOLOGY Hgb 9.0 g/dL 13.5 - 18.0 12/27/[address] [facility] er HEMATOLOGY RBC 2.71 x10'6/microL 4.50 - 6.50 12/27/[address] [facility] er HEMATOLOGY MCV 95 fL 81 - 99 12/27/[address] [facility] er HEMATOLOGY Hct 26 % 40 - 52 12/27/[address] [facility] er HEMATOLOGY MCH 33 pg 27 - 34 12/27/[address] [facility] er HEMATOLOGY RDW 13.7 % <=14.5 12/27/[address] [facility] er HEMATOLOGY MCHC 35 g/dL 32 - 36 12/27/[address] [facility] er HEMATOLOGY MPV 7.3 fL 6.5 - 10.4 12/27/[address] [facility] er HEMATOLOGY Platelet 72 x1 0'3/microL 140 - 400 12/27/[address] [facility] er HEMATOLOGY WBC 6.8 x 10'3/microL 4.0 - 11.0 12/27/[address] [facility] er CHEMISTRY Est CrCL (CG) 71.4 m L/min 12/26/2010 <sup>12</sup>Result Comment: Estimated C reatinine Clearance calculated based on the Cockcroft-Gault formula. [facility] CHEMISTRY Magnesium 2.2 mg/dL 1.6 - 2.6 12/26/2010 <sup>14</sup>Interpretive Data: Critical High for OB Patients >=7.0 mg/dl. [facility] CHEMISTRY AGAP 4 mmol/L 3 - 19 12/26/[address] [facility] er CHEMISTRY Sodium 135 mmol/L 136 - 145 12/26/[address] [facility] er CHEMISTRY Potassium 4.4 mmol/L 3.5 - 5.1 12/26/[address] [facility] er CHEMISTRY Chloride 108 mmol/L 98 - 107 12/26/[address] [facility] er CHEMISTRY Calcium 8.5 mg/dL 8.6 - 10.2 12/26/[address] [facility] er CHEMISTRY CO2 23 mmol/L 22 - 29 12/26/[address] [facility] er CHEMISTRY Glucose 111 mg/dL 70 - 100 12/26/[address] [facility] er CHEMISTRY BUN 17 mg/dL 8 - 20 12/26/[address] [facility] er CHEMISTRY Creatinine 1.1 mg/dL 0.7 - 1.2 12/26/[address] [facility] er CHEMISTRY GFR (MDRD) 68.7 m L/min/1.73 m2 12/26/2010 NA <sup>9</sup>Result Comment: GFR calculat ed based on MDRD abbreviated formula.

Age(years) Average GFR
20-29 116 ml/min/1.73 m2
30-39 107 ml/min/1.73 m2
40-49 99 ml/min/1.73 m2
50-59 93 ml/min/1.73 m2
60-69 85 ml/min/1.73 m2
70+ 75 ml/min/1.73 m2

Acceptable GFR =>60 ml/min/1.73 m2
Chronic Kidney Disease <60 ml/min/1.73 m2
Kidney Failure <15 ml/min/1.73 m2 [facility] HEMATOLOGY INR 1.5 12/26/2010 NA [facility] HEMATOLOGY PT 17.8 second 11.5 - 14.5 12/26/[address] [facility] er HEMATOLOGY PTT 41 second 20 - 35 12/26/2010 HI <sup>1</sup>Interpretive Data: See physi madiha orders for patient-specific therapeutic goal when using unfractionated heparin. [facility] HEMATOLOGY MCHC 35 g/dL 32 - 36 12/26/[address] [facility] er HEMATOLOGY MCV 95 fL 81 - 99 12/26/[address] [facility] er HEMATOLOGY MCH 33 pg 27 - 34 12/26/[address] [facility] er HEMATOLOGY Hgb 9.8 g/dL 13.5 - 18.0 12/26/[address] [facility] er HEMATOLOGY Hct 28 % 40 - 52 12/26/[address] [facility] er HEMATOLOGY MPV 7.0 fL 6.5 - 10.4 12/26/[address] [facility] er HEMATOLOGY RDW 13.5 % <=14.5 12/26/[address] [facility] er HEMATOLOGY Platelet 107 x 10'3/microL 140 - 400 12/26/[address] [facility] er HEMATOLOGY RBC 2.98 x10'6/microL 4.50 - 6.50 12/26/[address] [facility] er HEMATOLOGY WBC 9.2 x 10'3/microL 4.0 - 11.0 12/26/[address] [facility] er CHEMISTRY Magnesium 2.3 mg/dL 1.6 - 2.6 12/26/2010 <sup>15</sup>Interpretive Data: Critical High for OB Patients >=7.0 mg/dl. [facility] HEMATOLOGY Hgb 10.2 g/dL 13.5 - 18.0 12/26/[address] [facility] er HEMATOLOGY Hct 29 % 40 - 52 12/26/[address] [facility] er BLOOD GASES Vital Capacity (POC) 798 .0 mL 12/25/[address] [facility] er BLOOD GASES Spon. Rate 16 bpm 12/25/2010 [facility] er BLOOD GASES Negative Inspiratory For ce 35 cmH20 12/25/2010 [facility] er BLOOD GASES PS 7 cmH20 12/25/2010 [facility] BLOOD GASES PEEP 5 cmH20 12/25/2010 NA [facility] BLOOD GASES Minute Ventilation 8.3 L/min 12/25/[address] [facility] BLOOD GASES Mode PSV
*NA*
(12/25/2010 18:56:00) <sup> </sup> 12/25/2010 [facility] BLOOD GASES Patient Temp 37.0 DegC 12/25/2010 [facility] er BLOOD GASES Drawn by RC < br/>*NA*
(12/25/2010 18:56:00) <sup> </sup> 12/25/2010 [facility] BLOOD GASES FIO2 (POC) 40.00 % 12/25/2010 [facility] er BLOOD GASES Device Adul t Vent
*NA*
(12/25/2010 18:56:00) <sup> </sup> 12/25/2010 [facility] BLOOD GASES Rapid Shallow Breath Ind ex 34 12/25/[address] [facility] BLOOD GASES Site of Collection Shayna rial Line
*NA*
(12/25/2010 18:56:00) <sup> </sup> 12/25/2010 [facility] er BLOOD GASES Sample Type Shayna rial
*NA*
(12/25/2010 18:56:00) <sup> </sup> 12/25/[address] [facility] er BLOOD GASES Silvio Test Not Applicable
*NA*
(12/25/2010 18:56:00) <sup> </sup> 12/25/[address] [facility] er BLOOD GASES SO2 IStat 95 % 95 - 98 12/25/[address] [facility] BLOOD GASES pH (POC) 7.302 7.350 - 7.450 12/25/[address] [facility] er BLOOD GASES HCO3 (POC) 22.4 mmol/L 18.0 - 23.0 12/25/[address] [facility] er BLOOD GASES BE (POC) -4 mmol/L -2-3 - 2 12/25/[address] [facility] er BLOOD GASES pO2 (POC) 83 mmHg 83 - 108 12/25/[address] [facility] er BLOOD GASES TCO2 (POC) 24 m mol/L 19 - 24 12/25/[address] [facility] er BLOOD GASES pCO2 (POC) 45.3 mmHg 35.0 - 45.0 12/25/[address] [facility] er BLOOD GASES Minute Ventilation 8.4 L/min 12/25/2010 [facility] er BLOOD GASES Vital Capacity (POC) 582 .0 mL 12/25/[address] [facility] er BLOOD GASES Spon. Rate 16 bpm 12/25/2010 [facility] er BLOOD GASES Negative Inspiratory For ce 43 cmH20 12/25/2010 [facility] er BLOOD GASES Rapid Shallow Breath Ind ex 42 12/25/2010 [facility] er BLOOD GASES PEEP 5 cmH20 12/25/2010 [facility] BLOOD GASES PS 7 cmH20 12/25/2010 NA [facility] BLOOD GASES Patient Temp 37.0 DegC 12/25/2010 [facility] er BLOOD GASES Mode PSV
*NA*
(12/25/2010 17:12:00) <sup> </sup> 12/25/2010 [facility] BLOOD GASES Drawn by RC < br/>*NA*
(12/25/2010 17:12:00) <sup> </sup> 12/25/2010 NA [facility] BLOOD GASES Device Adul t Vent
*NA*
(12/25/2010 17:12:00) <sup> </sup> 12/25/2010 [facility] BLOOD GASES FIO2 (POC) 40.00 % 12/25/2010 [facility] er BLOOD GASES Silvio Test Not Applicable
*NA*
(12/25/2010 17:12:00) <sup> </sup> 12/25/2010 [facility] er BLOOD GASES Sample Type Shayna rial
*NA*
(12/25/2010 17:12:00) <sup> </sup> 12/25/2010 [facility] er BLOOD GASES Site of Collection Shayna rial Line
*NA*
(12/25/2010 17:12:00) <sup> </sup> 12/25/2010 [facility] er BLOOD GASES HCO3 (POC) 24.0 mmol/L 18.0 - 23.0 12/25/2010 [facility] er BLOOD GASES BE (POC) -2 mmol/L -2-3 - 2 12/25/[address] [facility] er BLOOD GASES SO2 IStat 91 % 95 - 98 12/25/[address] [facility] er BLOOD GASES TCO2 (POC) 25 m mol/L 19 - 24 12/25/2010 [facility] er BLOOD GASES pCO2 (POC) 49.1 mmHg 35.0 - 45.0 12/25/2010 [facility] er BLOOD GASES pO2 (POC) 67 mmHg 83 - 108 12/25/2010 [facility] er BLOOD GASES pH (POC) 7.298 7.350 - 7.450 12/25/2010 [facility] er BLOOD GASES Sample Type Shayna rial
*NA*
(12/25/2010 13:38:00) <sup> </sup> 12/25/2010 [facility] er BLOOD GASES Drawn by RC < br/>*NA*
(12/25/2010 13:38:00) <sup> </sup> 12/25/2010 [facility] BLOOD GASES Tidal Volume 700 mL 12/25/2010 [facility] er BLOOD GASES Patient Temp 97.7 DegC 12/25/2010 [facility] er BLOOD GASES Site of Collection Shayna rial Line
*NA*
(12/25/2010 13:38:00) <sup> </sup> 12/25/2010 [facility] er BLOOD GASES Silvio Test Not Applicable
*NA*
(12/25/2010 13:38:00) <sup> </sup> 12/25/2010 [facility] er BLOOD GASES Device Adul t Vent
*NA*
(12/25/2010 13:38:00) <sup> </sup> 12/25/2010 [facility] [facility] BLOOD GASES pH (POC) 7.344 7.350 - 7.450 12/25/[address] [facility] er BLOOD GASES pCO2 (POC) 42.1 mmHg 35.0 - 45.0 12/25/[address] [facility] er BLOOD GASES HCO3 (POC) 23.0 mmol/L 18.0 - 23.0 12/25/[address] [facility] er BLOOD GASES pO2 (POC) 239 mmHg 83 - 108 12/25/2010 [facility] er BLOOD GASES BE (POC) -3 mmol/L -2-3 - 2 12/25/[address] [facility] er BLOOD GASES TCO2 (POC) 24 m mol/L 19 - 24 12/25/[address] [facility] er BLOOD GASES SO2 IStat >99 % 95 - 98 12/25/2010 [facility] er BLOOD GASES Minute Ventilation 10.0 L/min 12/25/2010 [facility] er BLOOD GASES Respiratory Rate (ABG) 1 4 bpm 12/25/2010 [facility] er BLOOD GASES PEEP 5 cmH20 12/25/2010 [facility] BLOOD GASES Spon. Rate 14 bpm 12/25/2010 [facility] er BLOOD GASES FIO2 (POC) 100. 00 % 12/25/2010 [facility] er BLOOD GASES Mode CMV (A/C)
*NA*
(12/25/2010 13:38:00) <sup> </sup> 12/25/2010 [facility] BLOOD GASES Peak Inspir. Pressure 23 cmH20 12/25/2010 [facility] er BLOOD GASES pCO2tc 41.2 mmHg 35.0 - 45.0 12/25/[address] [facility] er BLOOD GASES pHtc 7.351 7.350 - 7.450 12/25/[address] [facility] er BLOOD GASES pO2tc 237 mmHg 83 - 108 12/25/2010 [facility] er HEMATOLOGY PT 17.9 second 11.5 - 14.5 12/25/2010 [facility] er HEMATOLOGY INR 1.5 12/25/2010 [facility] HEMATOLOGY PTT 43 second 20 - 35 12/25/2010 HI <sup>2</sup>Interpretive Data: See physi madiha orders for patient-specific therapeutic goal when using unfractionated heparin. [facility] HEMATOLOGY Platelet 98 x1 0'3/microL 140 - 400 12/25/[address] [facility] er HEMATOLOGY RDW 13.2 % <=14.5 12/25/[address] [facility] er HEMATOLOGY MPV 7.1 fL 6.5 - 10.4 12/25/[address] [facility] er HEMATOLOGY RBC 3.61 x10'6/microL 4.50 - 6.50 12/25/[address] [facility] er HEMATOLOGY WBC 9.9 x 10'3/microL 4.0 - 11.0 12/25/[address] [facility] er HEMATOLOGY MCHC 35 g/dL 32 - 36 12/25/[address] [facility] er HEMATOLOGY MCV 94 fL 81 - 99 12/25/[address] [facility] er HEMATOLOGY MCH 33 pg 27 - 34 12/25/[address] [facility] er CHEMISTRY Calcium-Ion POC 1.09 m mol/L 1.12 - 1.32 12/25/[address] [facility] er CHEMISTRY Hematocrit POC 32 % 40 - 52 12/25/[address] [facility] er CHEMISTRY Hemoglobin POC 10.9 g /dL 13.5 - 18.0 12/25/[address] [facility] er CHEMISTRY Potassium POC 4.6 mm ol/L 3.8 - 5.2 12/25/[address] [facility] er CHEMISTRY Sodium POC 135 mm ol/L 137 - 147 12/25/[address] [facility] er CHEMISTRY Calcium-Ion POC 1.10 m mol/L 1.12 - 1.32 12/25/[address] [facility] er CHEMISTRY Hematocrit POC 26 % 40 - 52 12/25/[address] [facility] er CHEMISTRY Sodium POC 133 mm ol/L 137 - 147 12/25/[address] [facility] er CHEMISTRY Hemoglobin POC 8.8 g/ dL 13.5 - 18.0 12/25/[address] [facility] er CHEMISTRY Potassium POC 5.4 mm ol/L 3.8 - 5.2 12/25/2010 [facility] er HEMATOLOGY Activated Clotting Time 1 28 second 74 - 125 12/25/2010 [facility] CHEMISTRY Sodium POC 134 mm ol/L 137 - 147 12/25/2010 [facility] er CHEMISTRY Potassium POC 5.4 mm ol/L 3.8 - 5.2 12/25/2010 [facility] er CHEMISTRY Hemoglobin POC 8.8 g/ dL 13.5 - 18.0 12/25/[address] [facility] er CHEMISTRY Hematocrit POC 26 % 40 - 52 12/25/2010 [facility] er CHEMISTRY Calcium-Ion POC 1.11 m mol/L 1.12 - 1.32 12/25/2010 [facility] er HEMATOLOGY Activated Clotting Time 1 28 second 74 - 125 12/25/2010 [facility] HEMATOLOGY Activated Clotting Time 6 05 second 74 - 125 12/25/2010 [facility] BLOOD GASES pO2tc 282 mmHg 83 - 108 12/25/2010 [facility] er BLOOD GASES pCO2tc 48.8 mmHg 35.0 - 45.0 12/25/2010 [facility] er BLOOD GASES pHtc 7.355 7.350 - 7.450 12/25/2010 [facility] URINE Microscopic? No
(0 12/24/2010 07:27:00) <sup> </sup> 12/24/2010 [facility] URINE UA Spec Type Clean Catc h
*NA*
(12/24/2010 07:27:00) <sup> </sup> 12/24/2010 NA [facility] URINE UA Color Yellow
(12/24/2010 07:27:00) <sup> </sup> 12/24/2010 [facility] URINE UA Glucose Negative m g/dL
(12/24/2010 07:27:00) <sup> </sup> Negative 12/24/2010 [facility] URINE UA Bili Negative < br/>(12/24/2010 07:27:00) <sup> </sup> Negative 12/24/2010 [facility] URINE UA Ketones Negative m g/dL
(12/24/2010 07:27:00) <sup> </sup> Negative 12/24/2010 [facility] URINE UA Blood Trace <br/ >(12/24/2010 07:27:00) <sup> </sup> Negative 12/24/2010 [facility] URINE UA Spec Grav 1.015 <br/ >(12/24/2010 07:27:00) <sup> </sup> 1.001 - 1.030 12/24/2010 [facility] URINE UA Protein Negative m g/dL
(12/24/2010 07:27:00) <sup> </sup> Negative 12/24/2010 [facility] URINE UA pH 6.5 5.0 - 8.0 12/24/2010 [facility] URINE UA Urobilinogen 1.0 EU per dL 0.2 - 1.0 12/24/[address] [facility] URINE UA Nitrite Negative < br/>(12/24/2010 07:27:00) <sup> </sup> Negative 12/24/2010 [facility] URINE UA Leuk Est Negative < br/>(12/24/2010 07:27:00) <sup> </sup> Negative 12/24/2010 [facility] CHEMISTRY Prealbumin 19 mg/dL 20 - 40 12/24/2010 LOW [facility] BLOOD BANK ABORh O POS 12/23/2010 Unknown [facility] BLOOD BANK ABSC 4 C Interp Negat tiffany <sup>19</sup>
(12/23/2010 13:56:00) <sup> </sup> 12/23/2010 <sup>19</sup>Result Comment: 12/23/2010 15:04 [email or web address]
ATTENTION PERFUSIONISTS: 37C antibody screen = neg , 4C/5 min COLD ANTIBODY SCREEN = neg. [facility] BLOOD BANK ABSC Gel Interp Negat tiffany <sup>18</sup>
(12/23/2010 13:56:00) <sup> </sup> 12/23/2010 <sup>18</sup>Result Note: 12/23/2010 15: 04 [email or web address]
manual gel [facility] CHEMISTRY Alk Phos [address] Units/L 35 - 105 12/23/[address] [facility] er CHEMISTRY Albumin Level 4.0 g/ dL 3.5 - 5.2 12/23/[address] [facility] er CHEMISTRY Bili Total 0.4 mg/dL 0.0 - 1.2 12/23/[address] [facility] er CHEMISTRY ALT 12 Int er. Units/L 0 - 41 12/23/[address] [facility] CHEMISTRY AST 19 Units/L 0 - 40 12/23/[address] [facility] er CHEMISTRY Total Protein 6.6 g/ dL 6.6 - 8.7 12/23/[address] [facility] CHEMISTRY LDL Direct 97 mg/dL <=100 12/23/2010 [facility] CHEMISTRY Chol/HDL Ratio 3.7 <=4.5 12/23/[address] [facility] CHEMISTRY HDL 40 mg/dL >=60 12/23/2010 LOW <sup>17</sup>Interpretive Data: <40 Major risk factor for CHD
> or = 60 Negative risk factor [facility] CHEMISTRY Cholesterol 149 mg /dL <=200 12/23/2010 <sup>16</sup>Interpretive Data: Low risk <200 mg/dl
Borderline risk 201-239 mg/dl
High risk 240 mg/dl and greater [facility] CHEMISTRY Triglycerides 63 mg/ dL <=200 12/23/[address] [facility] CHEMISTRY Hgb A1c 5.6 % 4.4 - 6.0 12/23/[address] [facility] er CHEMISTRY Estimated Average Glucose 114 mg/dL 12/23/[address] [facility] HEMATOLOGY Basophils Abs 0.0 x 10'3/microL 0.0 - 0.2 12/23/[address] [facility] HEMATOLOGY Monocytes Abs 0.5 x 10'3/microL 0.1 - 0.6 12/23/[address] [facility] er HEMATOLOGY Basophils % 1 % 0 - 3 12/23/[address] [facility] HEMATOLOGY Lymphocytes Abs 1.0 x 10'3/microL 1.2 - 3.4 12/23/2010 LOW [facility] HEMATOLOGY Neutrophils Abs 2.7 x 10'3/microL 1.4 - 7.2 12/23/2010 [facility] HEMATOLOGY Eosinophils Abs 0.2 x 10'3/microL 0.0 - 0.5 12/23/2010 [facility] HEMATOLOGY Neutrophils % 61 % 44 - 76 12/23/[address] [facility] HEMATOLOGY Lymphocytes % 22 % 13 - 43 12/23/[address] [facility] HEMATOLOGY Monocytes % 12 % 0 - 13 12/23/[address] [facility] HEMATOLOGY Eosinophils % 4 % 0 - 7 12/23/[address] [facility] HEMATOLOGY PTT 32 second 20 - 35 12/23/2010 <sup>3</sup>Interpretive Data: See physi madiha orders for patient-specific therapeutic goal when using unfractionated heparin. [facility] HEMATOLOGY PT 14.1 second 11.5 - 14.5 12/23/[address] [facility] HEMATOLOGY INR 1.1 12/23/2010 NA [facility] CHEMISTRY LDL Direct 80 mg/dL <=100 11/08/2010 <sup>7</sup>Interpretive Data: Interpret ation: Optimal <100 mg/dl
Borderline High: 130-159 mg/dl
Risk >160 mg/dl [facility] CHEMISTRY Chol/HDL Ratio 3.4 <=4.5 11/08/[address] [facility] er CHEMISTRY Triglycerides 65 mg/ dL <=150 11/08/2010 <sup>8</sup>Interpretive Data: Normal: L ess than 150 mg/dL
Borderline high: 150 - 199 mg/dL
High: 200 - 500 mg/dL
Very high: Greater than 500 mg/dL
[facility] CHEMISTRY HDL 41 mg/dL >=40 11/08/2010 <sup>6</sup>Interpretive Data: Interpretation: Cardiac Risk <40 mg/dL; Optimal >60 mg/dL [facility] CHEMISTRY Cholesterol 139 mg /dL <=200 11/08/[address] [facility] CHEMISTRY CO2 27 mmol/L 22 - 32 11/08/[address] [facility] CHEMISTRY Sodium 137 mmol/L 136 - 144 11/08/[address] [facility] CHEMISTRY Potassium 5.5 mmol/L 3.6 - 5.1 11/08/2010 HI <sup>2</sup>Result Comment: Specimen sli ghtly hemolyzed which may affect results. [facility] CHEMISTRY BUN 20 mg/dL 8 - 20 11/08/[address] [facility] CHEMISTRY Creatinine 1.0 mg/dL 0.7 - 1.3 11/08/[address] [facility] CHEMISTRY Chloride 104 mmol/L 101 - 111 11/08/[address] [facility] CHEMISTRY AGAP 6 mmol/L 3 - 19 11/08/[address] [facility] CHEMISTRY Calcium 9.0 mg/dL 8.4 - 10.2 11/08/[address] [facility] CHEMISTRY Glucose 108 mg/dL 70 - 100 11/08/2010 HI <sup>3</sup>Interpretive Data: Interpret ative Data: 100-125 = Impaired Fasting Glucose
> or = 126 = Provisional diagnosis of diabetes. [facility] CHEMISTRY Estimated Average Glucose 105 mg/dL 11/08/[address] [facility] CHEMISTRY Hgb A1c 5.3 % 4.4 - 6.0 11/08/[address] [facility] er CHEMISTRY GFR (MDRD) 73.5 m L/min/1.73 m2 11/08/2010 NA <sup>4</sup>Result Comment: GFR calculat ed based on MDRD abbreviated formula.

Age(years) Average GFR
20-29 116 ml/min/1.73 m2
30-39 107 ml/min/1.73 m2
40-49 99 ml/min/1.73 m2
50-59 93 ml/min/1.73 m2
60-69 85 ml/min/1.73 m2
70+ 75 ml/min/1.73 m2

Acceptable GFR =>60 ml/min/1.73 m2
Chronic Kidney Disease <60 ml/min/1.73 m2
Kidney Failure <15 ml/min/1.73 m2 [facility] CHEMISTRY Est CrCL (CG) 76.0 m L/min 11/08/2010 <sup>5</sup>Result Comment: Estimated Cr eatinine Clearance calculated based on the Cockcroft-Gault formula. [facility] HEMATOLOGY RDW 13.2 % <=14.5 11/08/[address] [facility] HEMATOLOGY Platelet 150 x 10'3/microL 140 - 400 11/08/2010 [facility] HEMATOLOGY MCHC 36 g/dL 32 - 36 11/08/[address] [facility] er HEMATOLOGY MCV 94 fL 81 - 99 11/08/[address] [facility] er HEMATOLOGY MCH 33 pg 27 - 34 11/08/[address] [facility] er HEMATOLOGY MPV 7.1 fL 6.5 - 10.4 11/08/[address] [facility] HEMATOLOGY Hct 43 % 40 - 52 11/08/2010 [facility] HEMATOLOGY Hgb 15.2 g/dL 13.5 - 18.0 11/08/[address] [facility] er HEMATOLOGY RBC 4.57 x10'6/microL 4.50 - 6.50 11/08/[address] [facility] er HEMATOLOGY WBC 6.0 x 10'3/microL 4.0 - 11.0 11/08/[address] [facility] HEMATOLOGY PT 14.0 second 11.5 - 14.5 11/08/[address] [facility] er HEMATOLOGY INR 1.1 11/08/2010 NA [facility] HEMATOLOGY PTT 34 second 20 - 35 11/08/2010 <sup>1</sup>Interpretive Data: See physi madiha orders for patient-specific therapeutic goal when using unfractionated heparin. [facility] HEMATOLOGY Monocytes Abs 0.6 x 10'3/microL 0.1 - 0.6 11/08/[address] [facility] HEMATOLOGY Basophils Abs 0.0 x 10'3/microL 0.0 - 0.2 11/08/[address] [facility] HEMATOLOGY Eosinophils Abs 0.2 x 10'3/microL 0.0 - 0.5 11/08/2010 [facility] HEMATOLOGY Eosinophils % 3 % 0 - 7 11/08/[address] [facility] HEMATOLOGY Monocytes % 10 % 0 - 13 11/08/[address] [facility] HEMATOLOGY Lymphocytes Abs 1.0 x 10'3/microL 1.2 - 3.4 11/08/2010 LOW [facility] HEMATOLOGY Neutrophils Abs 4.2 x 10'3/microL 1.4 - 7.2 11/08/2010 [facility] HEMATOLOGY Basophils % 1 % 0 - 3 11/08/[address] [facility] HEMATOLOGY Lymphocytes % 16 % 13 - 43 11/08/[address] [facility] HEMATOLOGY Neutrophils % 70 % 44 - 76 11/08/[address] [facility] er ENDOCRINE/TUMOR MARKER TSH 1.71 microInter.Units/mL 0.35 - 5.50 11/02/2010 <sup>1</sup>Interpretive Toy a: ranges determined by [facility].
[facility] Pathology Reports No Data Provided for This Section Diagnostic Reports No Data Provided for This Section Consultation Notes No Data Provided for This Section Discharge Summaries Results Value Date Source Discharge Summary DISCHARGE [facility] DATE OF ADMISSION: 12/23/2010 DATE OF DISCHARGE: 12/31/2010 DATE OF : 1940 ADMITTING DIAGNOSIS: Elective cardiac catheterization due to abnormal stress test. FINAL DIAGNOSIS: Coronary artery disease, status post coronary artery bypass grafting surgery. ATTENDING PHYSICIAN: Dr. Nas Fermin CONSULTATIONS: Jacob Spicer MD, Blu Negron MD, Rodrigo Herrera MD PROCEDURES: On 12/23/2010, Mr. Figueroa underwent cardiac catheterization by Dr. Nas Fermin. His left ventricular systolic function was within normal limits. There was a 60 percent stenosis of the circumflex, obtuse marginal branch. There was a greater than 95 percent stenosis of the right coronary artery, growing through the site of his previously placed stent. Dr. Spicer was consulted for consideration or myocardial revascularization. On 12/25/2010, he underwent coronary artery bypass grafting x 2. He had a left internal mammary artery to the first obtuse marginal branch and also from the aorta to the right coronary artery. HOSPITAL COURSE: As above. He was followed by Endocrinology for hyperglycemia and this has returned to baseline. Postoperatively, he was having some episodes of paroxysmal atrial fibrillation with heart rates in the 130s. However, he was being paced out of that fairly promptly. His pacemaker was interrogated by [employer] and apparently these episodes began back in November. For this reason his amiodarone is temporarily being increased and then tapered back down to maintenance dose. On 12/31/2010 he was ambulating well on room air, paroxysmal atrial fibrillation episodes were under control. He was felt ready for discharge home. DISCHARGE MEDICATIONS: See discharge medication reconciliation form. FOLLOW UP: He is to call Dr. Spicer on Monday to schedule a followup visit in 2-3 weeks. He is going to follow up with Dr. Fermin in [facility] and he is to follow up with Dr. Jorge Luis Anguiano in the next couple of weeks. TB/gh E.T. I: 01/01/2011 19:02:13 E.T. E: 01/01/2011 19:02:13 E.T./gh Back Doc #: [id number] E.T. = Time cc: MD Jorge Luis Otero MD M Yaser Mounla, MD 01/01/2011 [facility] Discharge Summary DISCHARGE [facility] DATE OF ADMISSION: 11/08/2010 DATE OF DISCHARGE: 11/09/2010 DATE OF : 1940 REASON FOR ADMISSION: Pacemaker placement, for symptomatic bradycardia. HOSPITAL COURSE: Mr. Figueroa is a very pleasant, 70-year-old, white gentleman, who was found to have high-grade AV block and symptomatic bradycardia. He was admitted to the hospital for permanent pacemaker placement. This was performed by Dr. Artemio Paz, where he received a dual-chamber [employer] pacemaker on 11/08/2010. The following day, the patient was feeling well. His chest x-ray showed no pneumothorax. He did have an elevated left hemidiaphragm with mild left basilar atelectasis and/or scarring. LABORATORY VALUES: White blood cell count 6, hemoglobin 15.2, hematocrit 43, platelets 150,000, prothrombin time 14, INR 1.0, partial thromboplastin time 34, sodium 137, potassium was slightly high at 5.5, chloride 104, bicarb 27, glucose 108, BUN 20, creatinine 1.0, calcium 9.0, GFR 73.5, estimated creatinine clearance 76, hemoglobin A1C 5.3, average glucose 105, total cholesterol 139, HDL 41, LDL 80, triglycerides 65, TSH 1.71. The following day, his pacemaker was interrogated and felt to be functioning normally. He does have a pacemaker that is apparently okay for having an MRI. This is a new device that [employer] has put out on the market. DISPOSITION: The patient's medications will remain the same, except for doxycycline 100 mg p.o. b.i.d. for 10 days then discontinue. He will follow up with Dr. Nas Fermin at [facility] on 11/11/2010, as already scheduled. He will follow postpacemaker instructions, and follow a cardiac diet. FINAL DIAGNOSIS: Symptomatic bradycardia, status-post permanent pacemaker. Coronary artery disease. Hypertension. Hyperlipidemia. Thank you very much for allowing us to participate in his care. If you have any questions, do not hesitate to phone the office. Mckayla Nayak MD Dictated by: INA Verduzco E.T. I: 11/10/2010 11:33:55 E.T. E: 11/10/2010 11:33:55 Madiha/sapphire Back Doc #: [id number] E.T. = Eastern Time cc: Jorge Luis Anguiano MD 11/10/2010 [facility] [place] History and Physicals Results Value Date Source History and Physical Patient examined, chart reviewed. Major issue is nausea and poor appetite. No chest pain. I suspect his outpatient d-dimer elevation secondary to being an acute phase reactant in the face of recent surgery and not indicative of pulmonary embolus etc. Would recommend decrease amioderone dose to once a day with food. No evidence of active ischemia. [facility] History and Physical HISTORY A [place] PHYSICAL DATE OF ADMISSION: 11/08/2010 DATE OF : 1940 This is an admitting history and physical for a permanent pacemaker implantation. HISTORY OF PRESENT ILLNESS This patient is a 70-year-old gentleman who recently saw Dr. Nayak in our office. He gave a history of shortness of breath over the last month, significant fatigue, dizziness with noted heart rate at home between 30 to 60. He had a recent electrocardiogram that said high degree heart block. He subsequently had a monitor placed. The monitor showed significant bradycardia. He was initially scheduled for a Lexiscan nuclear imaging study, which we canceled due to his abnormal rhythm with plans for permanent pacemaker. PAST MEDICAL HISTORY His past medical history is remarkable for coronary artery disease, again with the last stress test showing no evidence of ischemia, dyslipidemia, hypertension. ALLERGIES INCLUDE Penicillin. Sulfa. SOCIAL HISTORY The patient does not smoke, does not drink, occasional caffeine consumption. CURRENT MEDICATIONS INCLUDE Losartan. Hydrochlorothiazide 50/12.5 once a day. Fluconazole nasal spray two once a day. Vitamin C. Vitamin E. Dundee 3 fish oil. Ascorbic acid. Aspirin 325 mg a day. Multivitamin once a day. Simvastatin 20 mg a day. PHYSICAL EXAMINATION Vital signs show blood pressure at last office visit was 128/74 with a pulse of 56. Weight 223 pounds. Lungs were clear to auscultation. Cardiovascular examination normal S1, S2. Without gallop or rub. Extremities without edema. This patient will be admitted to the hospital for permanent pacemaker implantation. This will be a dual lead system with a [employer] device. This was scheduled due to his long distance away from home over the phone. I will talk to him that morning about the risks and benefits. DO SANJANA Narayanan/jose C.T. E.T. E: 11/05/2010 12:12:52 E.T./mml Back Doc #: [id number] E.T. = Time cc: 11/05/2010 [facility] Vital Signs Vital Sign Value Date Comments Source Respiratory Rate 18 br/min 01/10/2011 [facility] Inet NIBP Systolic 134 mmHg 01/10/2011 [facility] NIBP MAP 97 mmHg 01/10/[address] [facility] er NIBP MAP Calc 101 01/10/[address] [facility] Inet NIBP Diastolic 85 mmHg 01/10/2011 [facility] Heart Rate 61 bpm 01/10/[address] [facility] Temperature 98.7 DegF 01/10/[address] [facility] Temp Method Oral (01/10/2011 1 3:18:00) 01/10/2011 [facility] Heart Rate 65 bpm 11/09/[address] [facility] Heart Rate Location Continuous Silk Worker (11/09/2010 07:00:00) 11/09/[address] [facility] Respiratory Rate 19 br/min 11/09/2010 [facility] Heart Rhythm Pacemaker, atrial (11/09/2010 07:00:00) 11/09/2010 [facility] [facility] Inet NIBP Diastolic 86 mmHg 11/09/2010 [facility] Inet NIBP Systolic 142 mmHg 11/09/2010 [facility] NIBP MAP 99 mmHg 11/09/[address] [facility] er BP Location Arm, right (2010 07:00:00) 11/09/2010 [facility] NIBP MAP Calc 105 11/09/[address] [facility] er Temp Method Oral (11/09/2010 0 7:00:00) 11/09/2010 [facility] Temperature 98 DegF 11/09/[address] [facility] er Encounters No Data Provided for This Section Procedures Procedure Code Date Perfomer Comments Source Initial insertion of dual-chamber device [id number] 11/08/2010 [facility] Initial insertion of transvenous leads [ electrodes] into atrium and ventricle [id number] 11/08/2010 [facility] Plan of Care No Data Provided for This Section Social History No Data Provided for This Section Assessment and Plan No Data Provided for This Section Family History No Data Provided for This Section Advance Directives No Data Provided for This Section Functional Status No Data Provided for This Section
--- OUTSIDE RECORDS SUMMARY | 2019-11-22 13:16 | XMS REPORT | Continuity of Care Document ---
Author Organization Unknown Address Unknown Phone Unavailable Allergies Active Description Code Type Severity Reaction Onset Reported/Identified Relationship to Patient Clinical Status Yes No Allergy Information Available [id number] Drug Allergy Unknown N/A 015 Yes Penicillins [id number] Drug Aller gy Unknown N/A 01/11/2016 Yes Sulfa (Sulfonamide Antibiotics) [id number] Drug Allergy Unknown N/A 016 Medications There is no data. Problems Date Dx Coded Attending Type Code Diagnosis Diagnosed By 01/26/2010 Ot 185 07/15/2010 Ot 185 07/15/2010 Ot 272.4 07/15/2010 Ot 401.9 07/15/2010 Ot 412 07/15/2010 Ot 441.4 07/15/2010 Ot 600.01 07/15/2010 Ot 788.31 07/15/2010 Ot V45.82 07/15/2010 Ot V58.0 07/15/2010 Ot V58.66 07/15/2010 Ot V58.69 10/14/2010 Ot 185 10/14/2010 Ot 272.4 10/14/2010 Ot 401.9 10/14/2010 Ot 412 10/14/2010 Ot 441.4 10/14/2010 Ot 600.01 10/14/2010 Ot 788.31 10/14/2010 Ot V45.82 10/14/2010 Ot V58.0 10/14/2010 Ot V58.66 10/14/2010 Ot V58.69 07/02/2014 CHAS JADE, JUAN RAMON [place] Ot 185 07/15/2014 CHAS JADE, JUAN RAMON [place] Ot 185 07/24/2014 CHAS JADE, JUAN RAMON [place] Ot 185 07/24/2014 CHAS JADE, JUAN RAMON E Ot 185 07/25/2014 JUAN RAMON DOHERTY MD Ot 185 07/25/2014 JUAN RAMON DOHERTY MD Ot 185 09/19/2014 Ot 790.93 09/19/2014 Ot V72.81 09/19/2014 Ot V72.83 09/19/2014 Ot V74.8 09/19/2014 Ot 185 09/19/2014 Ot 272.4 09/19/2014 Ot 401.9 09/19/2014 Ot 412 09/19/2014 Ot 441.4 09/19/2014 Ot 600.01 09/19/2014 Ot 788.31 09/19/2014 Ot V45.82 09/19/2014 Ot V58.66 09/19/2014 Ot V58.69 09/19/2014 Ot 185 09/19/2014 Ot 272.4 09/19/2014 Ot 401.9 09/19/2014 Ot 412 09/19/2014 Ot 441.4 09/19/2014 Ot V45.82 09/19/2014 Ot V58.66 09/19/2014 Ot V58.69 09/19/2014 Ot 427.31 09/19/2014 CHAS JADE, JUAN RAMON E Ot 185 09/19/2014 CHAS JADE, JUAN RAMON E Ot 185 09/19/2014 CHAS JADE, JUAN RAMON E Ot 185 09/19/2014 CHAS JADE, JUAN RAMON E Ot 185 09/19/2014 HODA JADE, JUSTICE [place] Ot 415.19 09/19/2014 HODA JADE, JUSTICE L Ot 427.31 09/19/2014 CHAS JADE, JUAN RAMON E Ot 185 09/19/2014 CHAS JADE, JUAN RAMON E Ot 185 10/20/2014 CHAS JADE, JUAN RAMON E Ot 185 10/22/2014 CHAS JADE, JUAN RAMON E Ot 185 11/14/2014 CHAS JADE, JUAN RAMON E Ot 185 11/14/2014 HODA JADE, JUSTICE L Ot 415.19 11/14/2014 HODA JADE, JUSTICE Waller Ot 427.31 11/14/2014 CHAS JADE, JUAN RAMON E Ot 185 11/22/2014 MERLENE, BOBAN N Ot 185 11/22/2014 MERLENE, BOBAN N Ot 185 11/23/2014 MERLENE, BOBAN N Ot 185 12/10/2014 MERLENE, BOBAN N Ot 185 12/17/2014 MERLENE, BOBAN N Ot 185 12/17/2014 MERLENE, BOBAN N Ot 196.9 12/17/2014 MERLENE, BOBAN N Ot 401.9 12/17/2014 MERLENE, BOBAN N Ot V15.3 12/17/2014 MERLENE, BOBAN N Ot V58.69 12/19/2014 MERLENE, BOBAN N Ot 185 12/19/2014 MERLENE, BOBAN N Ot 196.9 12/19/2014 MERLENE, BOBAN N Ot 401.9 12/19/2014 MERLENE, BOBAN N Ot V15.3 12/19/2014 MERLENE, BOBAN N Ot V58.69 12/30/2014 MERLENE, BOBAN N Ot 185 MALIGN NEOPL PROSTATE 12/30/2014 MERLENE, BOBAN N Ot V58.69 OTH MED,LT,CURRENT USE 02/25/2015 MERLENE, BOBAN N Ot 185 02/25/2015 MERLENE, BOBAN N Ot 185 03/03/2015 HODA JADE, JUSTICE L Ot 415.19 03/03/2015 HODA JADE, JUSTICE L Ot 427.31 03/03/2015 HODA JADE, JUSTICE L Ot 415.19 03/03/2015 HODA JADE, JUSTICE L Ot 427.31 03/09/2015 HODA JADE, JUSTICE L Ot 415.19 03/09/2015 HODA JADE, JUSTICE L Ot 427.31 03/17/2015 HODA JADE, JUSTICE L Ot 415.19 03/17/2015 HODA JADE, JUSTICE L Ot 427.31 03/19/2015 HODA JADE, JUSTICE L Ot 415.19 03/19/2015 HODA JADE, JUSTICE L Ot 427.31 03/24/2015 MERLENE, BOBAN N Ot 185 03/25/2015 MERLENE, BOBAN N Ot 185 MALIGN NEOPL PROSTATE 03/25/2015 MERLENE, BOBAN N Ot 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 03/25/2015 MERLENE, BOBAN N Ot 401.9 HYPERTENSION NOS 03/25/2015 MERLENE, BOBAN N Ot V15.3 HX OF IRRADIATION 03/25/2015 MERLENE, BOBAN N Ot V58.69 OTH MED,LT,CURRENT USE 03/25/2015 MERLENE, BOBAN N Ot 185 03/25/2015 MERLENE, BOBAN N Ot 196.9 03/25/2015 MERLENE, BOBAN N Ot 401.9 03/25/2015 MERLENE, BOBAN N Ot V15.3 03/25/2015 MERLENE, BOBAN N Ot V58.69 04/01/2015 MERLENE, BOBAN N Ot 185 04/01/2015 MERLENE, BOBAN N Ot 196.9 04/01/2015 MERLENE, BOBAN N Ot 401.9 04/01/2015 LIBRADO BLUNT N Ot V15.3 04/01/2015 LIBRADO BLUNT N Ot V58.69 05/18/2015 LIBRADO BLUNT N Ot 185 05/18/2015 MERLENELIBRADO GOLDBERG N Ot 196.9 05/18/2015 MERLENELIBRADO GOLDBERG N Ot 401.9 05/18/2015 LIBRADO BLUNT N Ot V15.3 05/18/2015 LIBRADO BLUNT N Ot V58.69 05/18/2015 Ot 790.93 05/18/2015 Ot V72.81 05/18/2015 Ot V72.83 05/18/2015 Ot V74.8 05/18/2015 Ot 185 05/18/2015 Ot 272.4 05/18/2015 Ot 401.9 05/18/2015 Ot 412 05/18/2015 Ot 441.4 05/18/2015 Ot 600.01 05/18/2015 Ot 788.31 05/18/2015 Ot V45.82 05/18/2015 Ot V58.66 05/18/2015 Ot V58.69 05/18/2015 Ot 185 05/18/2015 Ot 272.4 05/18/2015 Ot 401.9 05/18/2015 Ot 412 05/18/2015 Ot 441.4 05/18/2015 Ot V45.82 05/18/2015 Ot V58.66 05/18/2015 Ot V58.69 05/18/2015 Ot 427.31 05/18/2015 CHAS JADE, JUAN RAMON [place] Ot 185 05/18/2015 CHAS JADE, JUAN RAMON [place] Ot 185 05/18/2015 CHAS JADE, JUAN RAMON [place] Ot 185 05/18/2015 CHAS JADE, JUAN RAMON [place] Ot 185 05/18/2015 HODA JADE, JUSTICE [place]er Ot 415.19 05/18/2015 JUSTICE DRUMMOND MD Ot 427.31 05/18/2015 CHAS JADE, JUAN RAMON [place] Ot 185 05/18/2015 CHAS JADE, JUAN RAMON [place] Ot 185 05/18/2015 MERLENELIBRADO GOLDBERG N Ot 185 05/18/2015 MERLENELIBRADO GOLDBERG N Ot 185 05/18/2015 MERLENELIBRADO GOLDBERG N Ot 185 05/18/2015 MERLENELIBRADO GOLDBERG N Ot 196.9 05/18/2015 MERLENE, BOBAN N Ot 401.9 05/18/2015 MERLENE, BOBAN N Ot V15.3 05/18/2015 MERLENE, BOBAN N Ot V58.69 05/18/2015 MERLENE, BOBAN N Ot 185 05/18/2015 MERLENE, BOBAN N Ot 185 05/18/2015 MERLENE, BOBAN N Ot 196.9 05/18/2015 MERLENE, BOBAN N Ot 401.9 05/18/2015 MERLENE, BOBAN N Ot V15.3 05/18/2015 MERLENE, BOBAN N Ot V58.69 05/18/2015 HODA JADE, JUSTICE [place]er Ot 415.19 05/18/2015 JUSTICE DRUMMOND MD Ot 427.31 05/18/2015 MERLENE, BOBAN N Ot 185 05/18/2015 MERLENE, BOBAN N Ot 196.9 05/18/2015 MERLENE, BOBAN N Ot 401.9 05/18/2015 MERLENE, BOBAN N Ot V15.3 05/18/2015 MERLENE, BOBAN N Ot V58.69 06/11/2015 MERLENE, BOBAN N Ot C61 06/17/2015 MERLENE, BOBAN N Ot C61 06/17/2015 MERLENE, BOBAN N Ot C77.9 06/17/2015 MERLENE, BOBAN N Ot I72.3 06/17/2015 MERLENE, BOBAN N Ot Z79.899 06/17/2015 MERLENE, BOBAN N Ot C61 06/30/2015 MERLENE, BOBAN N Ot C61 06/30/2015 MERLENE, BOBAN N Ot C77.9 06/30/2015 MERLENE, BOBAN N Ot I72.3 06/30/2015 MERLENE, BOBAN N Ot Z79.899 09/15/2015 MERLENE, BOBAN N Ot C61 09/15/2015 MERLENE, BOBAN N Ot C77.9 09/15/2015 MERLENE, BOBAN N Ot I10 09/15/2015 MERLENE, BOBAN N Ot I72.3 09/15/2015 MERLENE, BOBAN N Ot Z79.899 09/23/2015 MERLENE, BOBAN N Ot C61 09/23/2015 MERLENE, BOBAN N Ot C77.9 09/23/2015 MERLENE, BOBAN N Ot I10 09/23/2015 MERLENELIBRADO GOLDBERG N Ot I72.3 09/23/2015 MERLENELIBRADO GOLDBERG N Ot Z79.899 11/18/2015 MERLENELIBRADO GOLDBERG N Ot C61 MALIGNANT NEOPLASM OF PROSTATE 11/18/2015 MERLENE, BOBBRITNEY N Ot 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 11/18/2015 MERLENELIBRADO GOLDBERG N Ot D64.9 ANEMIA, UNSPECIFIED 11/18/2015 MERLENELIBRADO N Ot I10 ESSENTIAL (PRIMARY) HYPERTENSION 11/18/2015 MERLENELIBRADO N Ot 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 11/18/2015 MERLENELIBRADO N Ot Z79.899 OTHER SHIP'S ENGINEER (CURRENT) DRUG THERAPY 11/20/2015 MERLENELIBRADO GOLDBERG N Ot 185 11/20/2015 MERLENECONTRERAS GOLDBERGAN N Ot 196.9 11/20/2015 MERLENELIBRADO GOLDBERG N Ot 401.9 11/20/2015 MERLENELIBRADO GOLDBERG N Ot 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 [place] 11/20/2015 MERLENELIBRADO GOLDBERG N Ot V58.69 12/15/2015 MERLENELIBRADO GOLDBERG N Ot C61 MALIGNANT NEOPLASM OF PROSTATE 12/15/2015 MERLENELIBRADO N Ot 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 12/15/2015 MERLENELIBRADO N Ot D64.9 ANEMIA, UNSPECIFIED 12/15/2015 MERLENELIBRADO N Ot I10 ESSENTIAL (PRIMARY) HYPERTENSION 12/15/2015 MERLENELIBRADO GOLDBERG N Ot 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 12/15/2015 LIBRADO BLUNT N Ot Z79.899 OTHER PENITENTIARY (CURRENT) DRUG THERAPY 12/17/2015 MERLENELIBRADO N Ot C61 MALIGNANT NEOPLASM OF PROSTATE 12/17/2015 MERLENELIBRADO N Ot 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 12/17/2015 MERLENELIBRADO N Ot D64.9 ANEMIA, UNSPECIFIED 12/17/2015 MERLENE BOBAN N Ot 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 12/17/2015 MERLENELIBRADO N Ot Z79.899 OTHER SHIP'S ENGINEER (CURRENT) DRUG THERAPY 12/19/2015 MERLENELIBRADO N Ot C61 MALIGNANT NEOPLASM OF PROSTATE 12/19/2015 MERLENE CONTRERASBRITNEY Genesis Ot 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 12/19/2015 MERLENE LIBRADO Hurtado Ot D64.9 ANEMIA, UNSPECIFIED 12/19/2015 MERLENE LIBRADO Hurtado Ot I10 ESSENTIAL (PRIMARY) HYPERTENSION 12/19/2015 MERLENE LIBRADO Hurtado Ot 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 9 DIAPHRAGMATIC HERNIA WITHOUT OBSTRUCTION 01/19/2016 RAQUEL WOMACK DO Ot K64. 4 RESIDUAL HEMORRHOIDAL SKIN TAGS 01/19/2016 RAQUEL WOMACK DO D Ot K92. 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 02/18/2016 MERLENE LIBRADO Hurtado Ot D64.9 ANEMIA, UNSPECIFIED 02/18/2016 MERLENE LIBRADO Hurtado Ot 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 02/18/2016 LIBRADO BLUNT Ot Z79.899 OTHER SHIP'S ENGINEER (CURRENT) DRUG THERAPY 02/23/2016 MERLENE, BOBAN N Ot C61 MALIGNANT NEOPLASM OF PROSTATE 02/23/2016 MERLENELIBRADO GOLDBERG N Ot 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 02/23/2016 MERLENELIBRADO GOLDBERG N Ot D64.9 ANEMIA, UNSPECIFIED 02/23/2016 MERLENELIBRADO GOLDBERG N Ot 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 02/23/2016 MERLENELIBRADO GOLDBERG N Ot Z79.899 OTHER SHIP'S ENGINEER (CURRENT) DRUG THERAPY 02/25/2016 LIBRADO BLUNT N Ot C61 MALIGNANT NEOPLASM OF PROSTATE 02/25/2016 MERLENELIBRADO GOLDBERG N Ot 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 02/25/2016 LIBRADO BLUNT N Ot D64.9 ANEMIA, UNSPECIFIED 02/25/2016 LIBRADO BLUNT N Ot 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 02/25/2016 MERLENELIBRADO GOLDBERG N Ot Z79.899 OTHER SHIP'S ENGINEER (CURRENT) DRUG THERAPY 02/25/2016 JUSTICE DRUMMOND MD Ot Z51.81 ENCOUNTER FOR THERAPEUTIC DRUG LEVEL MON 02/25/2016 JUSTICE DRUMMOND MD Ot Z79.01 PENITENTIARY (CURRENT) USE OF ANTICOAGULANT 03/02/2016 LIBRADO BLUNT N Ot C61 MALIGNANT NEOPLASM OF PROSTATE 03/02/2016 MERLENELIBRADO GOLDBERG N Ot 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 03/02/2016 MERLENELIBRADO GOLDBERG N Ot D64.9 ANEMIA, UNSPECIFIED 03/02/2016 LIBRADO BLUNT N Ot I10 ESSENTIAL (PRIMARY) HYPERTENSION 03/02/2016 LIBRADO BLUNT N Ot 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 03/02/2016 LIBRADO BLUNT N Ot Z79.899 OTHER SHIP'S ENGINEER (CURRENT) DRUG THERAPY 03/02/2016 JUSTICE DRUMMOND MD Ot Z51.81 ENCOUNTER FOR THERAPEUTIC DRUG LEVEL Mon03/02/2016 JUSTICE DRUMMOND MD Ot Z79.01 PENITENTIARY (CURRENT) USE OF ANTICOAGULANT 03/02/2016 JUSTICE DRUMMOND MD Ot Z51.81 ENCOUNTER FOR THERAPEUTIC DRUG LEVEL Mon03/02/2016 JUSTICE DRMUMOND MD Ot Z79.01 SHIP'S ENGINEER (CURRENT) USE OF ANTICOAGULANT 03/02/2016 JUSTICE DRUMMOND MD Ot Z51.81 ENCOUNTER FOR THERAPEUTIC DRUG LEVEL Mon03/02/2016 JUSTICE DRUMMOND MD Ot Z79.01 SHIP'S ENGINEER (CURRENT) USE OF ANTICOAGULANT 03/02/2016 JUSTICE DRUMMOND MD Ot Z51.81 ENCOUNTER FOR THERAPEUTIC DRUG LEVEL MON 03/02/2016 JUSTICE DRUMMOND MD Ot Z79.01 PENITENTIARY (CURRENT) USE OF ANTICOAGULANT 03/02/2016 JUSTICE DRUMMOND MD Ot Z51.81 ENCOUNTER FOR THERAPEUTIC DRUG LEVEL MON 03/02/2016 JUSTICE DRUMMOND MD Ot Z79.01 PENITENTIARY (CURRENT) USE OF ANTICOAGULANT 03/02/2016 JUSTICE DRUMMOND MD Ot Z51.81 ENCOUNTER FOR THERAPEUTIC DRUG LEVEL MON 03/02/2016 JUSTICE DRUMMOND MD Ot Z79.01 PENITENTIARY (CURRENT) USE OF ANTICOAGULANT 03/16/2016 JUSTICE DRUMMOND MD Ot Z51.81 ENCOUNTER FOR THERAPEUTIC DRUG LEVEL MON 03/16/2016 JUSTICE DRUMMOND MD Ot Z79.01 SHIP'S ENGINEER (CURRENT) USE OF ANTICOAGULANT 03/17/2016 MERLENE BOBAN N Ot C61 MALIGNANT NEOPLASM OF PROSTATE 03/17/2016 MERLENE BOBAN N Ot 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 03/17/2016 MERLENE BOBAN N Ot D64.9 ANEMIA, UNSPECIFIED 03/17/2016 MERLENE BOBAN N Ot 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 03/17/2016 MERLENE BOBAN N Ot Z79.899 OTHER PENITENTIARY (CURRENT) DRUG THERAPY 03/24/2016 MERLENE BOBAN N Ot C61 MALIGNANT NEOPLASM OF PROSTATE 03/24/2016 MERLENE BOBAN N Ot 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 03/24/2016 MERLENE, BOBAN N Ot D64.9 ANEMIA, UNSPECIFIED 03/24/2016 MERLENE, BOBAN N Ot I10 ESSENTIAL (PRIMARY) HYPERTENSION 03/24/2016 MERLENE BOBAN N Ot 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 03/24/2016 MERLENE BOBAN N Ot Z79.899 OTHER SHIP'S ENGINEER (CURRENT) DRUG THERAPY 03/29/2016 MERLENE BOBAN N Ot C61 MALIGNANT NEOPLASM OF PROSTATE 03/29/2016 MERLENE BOBAN N Ot 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 03/29/2016 MERLENE BOBAN N Ot D64.9 ANEMIA, UNSPECIFIED 03/29/2016 MERLENE BOBAN N Ot I10 ESSENTIAL (PRIMARY) HYPERTENSION 03/29/2016 MERLENELIBRADO GOLDBERG N Ot 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 03/29/2016 MERLENELIBRADO N Ot Z79.899 OTHER PENITENTIARY (CURRENT) DRUG THERAPY 05/24/2016 LIBRADO BLUNT N Ot C61 MALIGNANT NEOPLASM OF PROSTATE 05/24/2016 MERLENELIBRADO GOLDBERG N Ot 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 05/24/2016 MERLENELIBRADO GOLDBERG N Ot D64.9 ANEMIA, UNSPECIFIED 05/24/2016 MERLENELIBRADO N Ot 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 05/24/2016 MERLENELIBRADO N Ot Z79.899 OTHER PENITENTIARY (CURRENT) DRUG THERAPY 05/25/2016 MELRENELIBRADO GOLDBERG N Ot C61 MALIGNANT NEOPLASM OF PROSTATE 05/25/2016 MERLENELIBRADO N Ot 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 05/25/2016 MERLENE BOBBRITNEY N Ot D64.9 ANEMIA, UNSPECIFIED 05/25/2016 MERLENELIBRADO N Ot I10 ESSENTIAL (PRIMARY) HYPERTENSION 05/25/2016 MERLENELIBRADO N Ot 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 05/25/2016 MERLENELIBRADO N Ot Z79.899 OTHER SHIP'S ENGINEER (CURRENT) DRUG THERAPY 05/25/2016 MERLENELIBRADO GOLDBERG N Ot C61 MALIGNANT NEOPLASM OF PROSTATE 05/25/2016 MERLENELIBRADO N Ot 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 05/25/2016 MERLENELIBRADO GOLDBERG N Ot D64.9 ANEMIA, UNSPECIFIED 05/25/2016 MERLENELIBRADO N Ot 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 05/25/2016 MERLENELIBRADO N Ot Z79.899 OTHER PENITENTIARY (CURRENT) DRUG THERAPY 06/15/2016 MERLENELIBRADO N Ot C61 MALIGNANT NEOPLASM OF PROSTATE 06/15/2016 MERLENE BOBAN N Ot 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 06/15/2016 MERLENE BOBAN N Ot D64.9 ANEMIA, UNSPECIFIED 06/15/2016 MERLENE BOBAN N Ot I10 ESSENTIAL (PRIMARY) HYPERTENSION 06/15/2016 MERLENECONTRERASAN N Ot 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 06/15/2016 MERLENELIBRADO N Ot Z79.899 OTHER SHIP'S ENGINEER (CURRENT) DRUG THERAPY 06/22/2016 LIBRADO BLUNT N Ot C61 MALIGNANT NEOPLASM OF PROSTATE 06/22/2016 MERLENELIBRADO GOLDBERG N Ot 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 06/22/2016 MERLENELIBRADO GOLDBERG N Ot D64.9 ANEMIA, UNSPECIFIED 06/22/2016 MERLENELIBRADO GOLDBERG N Ot I10 ESSENTIAL (PRIMARY) HYPERTENSION 06/22/2016 MERLENE, LIBRADO N Ot 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 06/22/2016 LIBRADO BLUNT N Ot Z79.899 OTHER PENITENTIARY (CURRENT) DRUG THERAPY 08/26/2016 LIBRADO BLUNT N Ot C61 MALIGNANT NEOPLASM OF PROSTATE 08/26/2016 MERLENE, CONTRERASBRITNEY N Ot 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 08/26/2016 LIBRADO BLUNT N Ot D64.9 ANEMIA, UNSPECIFIED 08/26/2016 MERLENE, CONTRERASBRITNEY N Ot 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 08/26/2016 MERLENE LIBRADO N Ot Z79.899 OTHER PENITENTIARY (CURRENT) DRUG THERAPY 08/30/2016 LIBRADO BLUNT N Ot C61 MALIGNANT NEOPLASM OF PROSTATE 08/30/2016 MERLENE BOBBRITNEY N Ot 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 08/30/2016 MERLENE CONTRERASBRITNEY N Ot D64.9 ANEMIA, UNSPECIFIED 08/30/2016 MERLENE CONTRERASBRITNEY N Ot 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 08/30/2016 MERLENE CONTRERASBRITNEY N Ot Z79.899 OTHER PENITENTIARY (CURRENT) DRUG THERAPY 08/31/2016 MERLENE CONTRERASBRITNEY N Ot C61 MALIGNANT NEOPLASM OF PROSTATE 08/31/2016 MERLENE CONTRERASAN N Ot 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 08/31/2016 MERLENE CONTRERASAN N Ot D64.9 ANEMIA, UNSPECIFIED 08/31/2016 MERLENE LIBRADO N Ot I10 ESSENTIAL (PRIMARY) HYPERTENSION 08/31/2016 MERLENE LIBRADO N Ot 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 08/31/2016 MERLENE, LIBRADO N Ot Z79.01 SHIP'S ENGINEER (CURRENT) USE OF ANTICOAGULANT 08/31/2016 CONTRERAS BLUNTAN N Ot Z79.899 OTHER PENITENTIARY (CURRENT) DRUG THERAPY 09/19/2016 LIBRADO BLUNT N Ot C61 MALIGNANT NEOPLASM OF PROSTATE 09/19/2016 MERLENE CONTRERASBRITNEY N Ot 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 09/19/2016 MERLENE CONTRERASBRITNEY N Ot D64.9 ANEMIA, UNSPECIFIED 09/19/2016 MERLENE, CONTRERASBRITNEY N Ot 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 09/19/2016 MERLENE CONTRERASBRITNEY N Ot Z79.899 OTHER PENITENTIARY (CURRENT) DRUG THERAPY 09/22/2016 MERLENELIBRADO GOLDBERG N Ot C61 MALIGNANT NEOPLASM OF PROSTATE 09/22/2016 MERLENE, CONTRERASBRITNEY N Ot 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 09/22/2016 MERLENE, CONTRERASBRITNEY N Ot D64.9 ANEMIA, UNSPECIFIED 09/22/2016 MERLENE, LIBRADO N Ot I10 ESSENTIAL (PRIMARY) HYPERTENSION 09/22/2016 MERLENE LIBRADO N Ot 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 09/22/2016 MERLENE LIBRADO N Ot Z79.01 PENITENTIARY (CURRENT) USE OF ANTICOAGULANT 09/22/2016 MERLENE LIBRADO N Ot Z79.899 OTHER SHIP'S ENGINEER (CURRENT) DRUG THERAPY 09/27/2016 LIBRADO BLUNT N Ot C61 MALIGNANT NEOPLASM OF PROSTATE 09/27/2016 MERLENE CONTRERASBRITNEY N Ot 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 09/27/2016 MERLENE CONTRERASBRITNEY N Ot D64.9 ANEMIA, UNSPECIFIED 09/27/2016 MERLENE BOBAN N Ot I10 ESSENTIAL (PRIMARY) HYPERTENSION 09/27/2016 MERLENE LIBRADO N Ot 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 09/27/2016 MERLENE LIBRADO N Ot Z79.01 SHIP'S ENGINEER (CURRENT) USE OF ANTICOAGULANT 09/27/2016 MERLENE CONTRERASAN N Ot Z79.899 OTHER PENITENTIARY (CURRENT) DRUG THERAPY 11/24/2016 MERLENE, CONTRERASBRITNEY N Ot C61 MALIGNANT NEOPLASM OF PROSTATE 11/24/2016 MERLENE CONTRERASBRITNEY N Ot 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 11/24/2016 MERLENE, LIBRADO N Ot D64.9 ANEMIA, UNSPECIFIED 11/24/2016 MERLENE BOBAN N Ot I10 ESSENTIAL (PRIMARY) HYPERTENSION 11/24/2016 MERLENELIBRADO N Ot 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 11/24/2016 LIBRADO BLUNT Ot Z79.01 SHIP'S ENGINEER (CURRENT) USE OF ANTICOAGULANT 11/24/2016 LIBRADO BLUNT Ot Z79.899 OTHER SHIP'S ENGINEER (CURRENT) DRUG THERAPY 12/13/2016 LIBRADO BLUNT Ot C61 MALIGNANT NEOPLASM OF PROSTATE 12/13/2016 LIBRADO BLUNT Ot 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 12/13/2016 LIBRADO BLUNT Ot D64.9 ANEMIA, UNSPECIFIED 12/13/2016 LIBRADO BLUNT Ot I10 ESSENTIAL (PRIMARY) HYPERTENSION 12/13/2016 LIBRADO BLUNT Ot 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 12/13/2016 LIBRADO BLUNT Ot Z79.01 PENITENTIARY (CURRENT) USE OF ANTICOAGULANT 12/13/2016 LIBRADO BLUNT Ot Z79.899 OTHER SHIP'S ENGINEER (CURRENT) DRUG THERAPY 12/22/2016 LIBRADO BLUNT Ot C61 MALIGNANT NEOPLASM OF PROSTATE 12/22/2016 LIBRADO BLUNT Ot 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 12/22/2016 LIBRADO BLUNT Ot D64.9 ANEMIA, UNSPECIFIED 12/22/2016 LIBRADO BLUNT N Ot I10 ESSENTIAL (PRIMARY) HYPERTENSION 12/22/2016 LIBRADO BLUNT Ot 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 12/22/2016 LIBRADO BLUNT Ot Z79.01 SHIP'S ENGINEER (CURRENT) USE OF ANTICOAGULANT 12/22/2016 LIBRADO BLUNT Ot Z79.899 OTHER PENITENTIARY (CURRENT) DRUG THERAPY 05/10/2017 Ot 185 MALIGN NEOPL PROSTATE 05/10/2017 Ot 272.4 HYPE RLIPIDEMIA NEC/NOS 05/10/2017 Ot 401.9 HYPE RTENSION NOS 05/10/2017 Ot 412 OLD MY OCARDIAL INFARCT 05/10/2017 Ot 441.4 ABDO M AORTIC ANEURYSM 05/10/2017 Ot V45.82 PER CUTANEOUS TRANSLUM CORON ANGIOPLASTY 05/10/2017 Ot V58.66 ROBERT G-TERM (CURRENT) USE OF ASPIRIN 05/10/2017 Ot V58.69 OTH MED,LT,CURRENT USE 05/10/2017 Ot 427.31 ATR IAL FIBRILLATION 05/10/2017 CHAS JADE, JUAN RAMON E Ot 185 MALIGN NEOPL PROSTATE 05/10/2017 CHAS JADE, JUAN RAMON E Ot 185 MALIGN NEOPL PROSTATE 05/10/2017 CHAS JADE, JUAN RAMON E Ot 185 MALIGN NEOPL PROSTATE 05/10/2017 JUAN RAMON DOHERTY MD E Ot 185 MALIGN NEOPL PROSTATE 05/10/2017 HODA JADE, JUSTICE Waller Ot 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 05/10/2017 JUSTICE DRUMMOND MD Ot 427.31 ATRIAL FIBRILLATION 05/10/2017 CHAS JADE, JUAN RAMON E Ot 185 MALIGN NEOPL PROSTATE 05/10/2017 CHAS JADE, JUAN RAMON E Ot 185 MALIGN NEOPL PROSTATE 05/10/2017 MERLENE, BOBAN N Ot 185 MALIGN NEOPL PROSTATE 05/10/2017 MERLENE, BOBAN N Ot 185 MALIGN NEOPL PROSTATE 05/10/2017 MERLENE, BOBAN N Ot 185 MALIGN NEOPL PROSTATE 05/10/2017 MERLENE, BOBAN N Ot 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 05/10/2017 MERLENE BOBAN N Ot 401.9 HYPERTENSION NOS 05/10/2017 MERLENE BOBAN N Ot V15.3 HX OF IRRADIATION 05/10/2017 MERLENE BOBAN N Ot V58.69 OTH MED,LT,CURRENT USE 05/10/2017 MERLENE, BOBAN N Ot 185 MALIGN NEOPL PROSTATE 05/10/2017 MERLENE, BOBAN N Ot 185 MALIGN NEOPL PROSTATE 05/10/2017 MERLENE, BOBAN N Ot 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 05/10/2017 MERLENE BOBAN N Ot 401.9 HYPERTENSION NOS 05/10/2017 MERLENECONTRERASAN N Ot V15.3 HX OF IRRADIATION 05/10/2017 MERLENECONTRERASAN N Ot V58.69 OTH MED,LT,CURRENT USE 05/10/2017 HODA JADE, JUSTICE Waller Ot 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 05/10/2017 HODA JADE, JUSTICE Waller Ot 427.31 ATRIAL FIBRILLATION 05/10/2017 MERLENE, BOBAN N Ot C61 MALIGNANT NEOPLASM OF PROSTATE 05/10/2017 MERLENE, BOBAN N Ot C61 MALIGNANT NEOPLASM OF PROSTATE 05/10/2017 MERLENECONTRERAS GOLDBERGAN N Ot 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 05/10/2017 LIBRADO BLUNT N Ot 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 05/10/2017 LIBRADO BLUNT N Ot Z79.899 OTHER SHIP'S ENGINEER (CURRENT) DRUG THERAPY 05/10/2017 LIBRADO BLUNT N Ot C61 MALIGNANT NEOPLASM OF PROSTATE 05/10/2017 LIBRADO BLUNT N Ot 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 05/10/2017 LIBRADO BLUNT N Ot I10 ESSENTIAL (PRIMARY) HYPERTENSION 05/10/2017 LIBRADO BLUNT N Ot 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 05/10/2017 LIBRADO BLUNT N Ot Z79.899 OTHER SHIP'S ENGINEER (CURRENT) DRUG THERAPY 05/10/2017 LIBRADO BLUNT N Ot C61 MALIGNANT NEOPLASM OF PROSTATE 05/10/2017 LIBRADO BLUNT N Ot 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 05/10/2017 LIBRADO BLUNT N Ot D64.9 ANEMIA, UNSPECIFIED 05/10/2017 MERLENE BOBBRITNEY N Ot I10 ESSENTIAL (PRIMARY) HYPERTENSION 05/10/2017 LIBRADO BLUNT N Ot 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 05/10/2017 LIBRADO BLUNT N Ot Z79.899 OTHER PENITENTIARY (CURRENT) DRUG THERAPY 05/10/2017 RAQUEL WOMACK DO Ot Z01.818 ENCOUNTER FOR OTHER PREPROCEDURAL EXAMIN 05/10/2017 RAQUEL WOMACK DO Ot Z01.818 ENCOUNTER FOR OTHER PREPROCEDURAL EXAMIN 05/10/2017 LIBRADO BLUNT N Ot C61 MALIGNANT NEOPLASM OF PROSTATE 05/10/2017 LIBRADO BLUNT N Ot 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 05/10/2017 LIBRADO BLUNT N Ot D64.9 ANEMIA, UNSPECIFIED 05/10/2017 LIBRADO BLUNT N Ot I10 ESSENTIAL (PRIMARY) HYPERTENSION 05/10/2017 LIBRADO BLUNT N Ot 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 05/10/2017 LIBRADO BLUNT N Ot Z79.899 OTHER PENITENTIARY (CURRENT) DRUG THERAPY 05/10/2017 HODA JADE, JUSTICE Waller Ot Z51.81 ENCOUNTER FOR THERAPEUTIC DRUG LEVEL MON 05/10/2017 JUSTICE DRUMMOND MD Ot Z79.01 SHIP'S ENGINEER (CURRENT) USE OF ANTICOAGULANT 05/10/2017 LIBRADO BLUNT N Ot C61 MALIGNANT NEOPLASM OF PROSTATE 05/10/2017 MERLENE, BOBAN N Ot 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 05/10/2017 MERLENELIBRADO GOLDBERG N Ot D64.9 ANEMIA, UNSPECIFIED 05/10/2017 MERLENELIBRADO N Ot I10 ESSENTIAL (PRIMARY) HYPERTENSION 05/10/2017 MERLENELIBRADO N Ot 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 05/10/2017 LIBRADO BLUNT N Ot Z79.899 OTHER SHIP'S ENGINEER (CURRENT) DRUG THERAPY 05/10/2017 LIBRADO BLUNT N Ot C61 MALIGNANT NEOPLASM OF PROSTATE 05/10/2017 MERLENELIBRADO N Ot 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 05/10/2017 MERLENELIBRADO GOLDBERG N Ot D64.9 ANEMIA, UNSPECIFIED 05/10/2017 MERLENELIBRADO N Ot 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 05/10/2017 MERLENELIBRADO N Ot Z79.899 OTHER PENITENTIARY (CURRENT) DRUG THERAPY 05/10/2017 LIBRADO BLUNT N Ot C61 MALIGNANT NEOPLASM OF PROSTATE 05/10/2017 MERLENELIBRADO N Ot 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 05/10/2017 MERLENELIBRADO N Ot D64.9 ANEMIA, UNSPECIFIED 05/10/2017 MERLENE BOBAN N Ot I10 ESSENTIAL (PRIMARY) HYPERTENSION 05/10/2017 LIBRADO BLUNT N Ot 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 05/10/2017 MERLENELIBRADO N Ot Z79.01 PENITENTIARY (CURRENT) USE OF ANTICOAGULANT 05/10/2017 LIBRADO BLUNT N Ot Z79.899 OTHER SHIP'S ENGINEER (CURRENT) DRUG THERAPY 05/10/2017 MERLENELIBRADO N Ot C61 MALIGNANT NEOPLASM OF PROSTATE 05/10/2017 MERLENELIBRADO N Ot 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 05/10/2017 MERLENECONTRERASAN N Ot D64.9 ANEMIA, UNSPECIFIED 05/10/2017 MERLENE BOBAN N Ot I10 ESSENTIAL (PRIMARY) HYPERTENSION 05/10/2017 MERLENE BOBAN N Ot 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 05/10/2017 MERLENECONTRERASAN N Ot Z79.01 PENITENTIARY (CURRENT) USE OF ANTICOAGULANT 05/10/2017 MERLENE BOBAN N Ot Z79.899 OTHER PENITENTIARY (CURRENT) DRUG THERAPY 05/10/2017 JYOTHI BETHEA MD Ot C61 MALIGNANT NEOPLASM OF PROSTATE 05/12/2017 [place] JADE, JYOTHI Ot C61 MALIGNANT NEOPLASM OF PROSTATE 05/30/2017 [place], JYOTHI Ot C61 MALIGNANT NEOPLASM OF PROSTATE 06/08/2017 [place], JYOTHI Ot C61 MALIGNANT NEOPLASM OF PROSTATE 10/24/2017 Ot C61 MALIGN ANT NEOPLASM OF PROSTATE 10/24/2017 Ot C77.9 SECO NDARY AND UNSP MALIGNANT NEOPLASM OF 10/24/2017 Ot D64.9 ANEM IA, UNSPECIFIED 10/24/2017 Ot I10 ESSENT IAL (PRIMARY) HYPERTENSION 10/24/2017 Ot Z79.01 ROBERT G TERM (CURRENT) USE OF ANTICOAGULANT 10/24/2017 Ot Z79.899 OT HER PENITENTIARY (CURRENT) DRUG THERAPY 11/01/2017 Ot C61 MALIGN ANT NEOPLASM OF PROSTATE 11/01/2017 Ot C77.9 SECO NDARY AND UNSP MALIGNANT NEOPLASM OF 11/01/2017 Ot D64.9 ANEM IA, UNSPECIFIED 11/01/2017 Ot I10 ESSENT IAL (PRIMARY) HYPERTENSION 11/01/2017 Ot Z79.01 ROBERT G TERM (CURRENT) USE OF ANTICOAGULANT 11/01/2017 Ot Z79.899 OT HER SHIP'S ENGINEER (CURRENT) DRUG THERAPY 12/15/2017 LIBRADO BLUNT Genesis Ot C61 MALIGNANT NEOPLASM OF PROSTATE 12/15/2017 MERLENELIBRADO GOLDBERG N Ot 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 12/15/2017 LIBRADO BLUNT N Ot D64.9 ANEMIA, UNSPECIFIED 12/15/2017 MERLENELIBRADO GOLDBERG N Ot I10 ESSENTIAL (PRIMARY) HYPERTENSION 12/15/2017 MERLENELIBRADO GOLDBERG N Ot Z79.01 SHIP'S ENGINEER (CURRENT) USE OF ANTICOAGULANT 12/15/2017 CONTRERAS BLUNTAN N Ot Z79.899 OTHER SHIP'S ENGINEER (CURRENT) DRUG THERAPY 12/20/2017 MERLENELIBRADO GOLDBERG N Ot C61 MALIGNANT NEOPLASM OF PROSTATE 12/20/2017 MERLENELIBRADO GOLDBERG N Ot 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 12/20/2017 MERLENELIBRADO GOLDBERG N Ot D64.9 ANEMIA, UNSPECIFIED 12/20/2017 MERLENE, BOBAN N Ot I10 ESSENTIAL (PRIMARY) HYPERTENSION 12/20/2017 MERLENECONTRERAS GOLDBERGBRITNEY N Ot Z79.01 SHIP'S ENGINEER (CURRENT) USE OF ANTICOAGULANT 12/20/2017 MERLENE BOBAN N Ot Z79.899 OTHER PENITENTIARY (CURRENT) DRUG THERAPY 01/22/2018 MERLENE, BOBAN N Ot C61 MALIGNANT NEOPLASM OF PROSTATE 01/22/2018 MERLENE BOBAN N Ot 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 01/22/2018 MERLENE, BOBAN N Ot D64.9 ANEMIA, UNSPECIFIED 01/22/2018 MERLENE BOBAN N Ot I10 ESSENTIAL (PRIMARY) HYPERTENSION 01/22/2018 MERLENE BOBAN N Ot Z79.01 SHIP'S ENGINEER (CURRENT) USE OF ANTICOAGULANT 01/22/2018 MERLENE BOBAN N Ot Z79.899 OTHER PENITENTIARY (CURRENT) DRUG THERAPY 04/13/2018 CHAS JADE, JUAN RAMON E Ot 185 MALIGN NEOPL PROSTATE 04/13/2018 CHAS JADE, JUAN RAMON E Ot 185 MALIGN NEOPL PROSTATE 04/13/2018 CHAS JADE, JUAN RAMON E Ot 185 MALIGN NEOPL PROSTATE 04/13/2018 CHAS JADE, JUAN RAMON E Ot 185 MALIGN NEOPL PROSTATE 04/13/2018 HODA JADE, JUSTICE L Ot 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 04/13/2018 HODA JADE, JUSTICE L Ot 427.31 ATRIAL FIBRILLATION 04/13/2018 CHAS JADE, JUAN RAMON E Ot 185 MALIGN NEOPL PROSTATE 04/13/2018 CHAS JADE, JUAN RAMON E Ot 185 MALIGN NEOPL PROSTATE 04/13/2018 MERLENE, BOBAN N Ot 185 MALIGN NEOPL PROSTATE 04/13/2018 MERLENE, BOBAN N Ot 185 MALIGN NEOPL PROSTATE 04/13/2018 MERLENE, BOBAN N Ot 185 MALIGN NEOPL PROSTATE 04/13/2018 MERLENE, BOBAN N Ot 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 04/13/2018 MERLENE, BOBAN N Ot 401.9 HYPERTENSION NOS 04/13/2018 MERLENE, BOBAN N Ot V15.3 HX OF IRRADIATION 04/13/2018 MERLENE, BOBAN N Ot V58.69 OTH MED,LT,CURRENT USE 04/13/2018 MERLENE, BOBAN N Ot 185 MALIGN NEOPL PROSTATE 04/13/2018 MERLENE, BOBAN N Ot 185 MALIGN NEOPL PROSTATE 04/13/2018 MERLENE, BOBAN N Ot 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 04/13/2018 MERLENE, BOBAN N Ot 401.9 HYPERTENSION NOS 04/13/2018 LIBRADO BLUNT N Ot V15.3 HX OF IRRADIATION 04/13/2018 LIBRADO BLUNT N Ot V58.69 OTH MED,LT,CURRENT USE 04/13/2018 HODA JAED, JUSTICE Waller Ot 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 04/13/2018 HODA JADE, JUSTICE Waller Ot 427.31 ATRIAL FIBRILLATION 04/13/2018 LIBRADO BLUNT N Ot C61 MALIGNANT NEOPLASM OF PROSTATE 04/13/2018 MERLENE, BOBBRITNEY N Ot C61 MALIGNANT NEOPLASM OF PROSTATE 04/13/2018 MERLENE BOBAN N Ot 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 04/13/2018 MERLENECONTRERAS GOLDBERGAN N Ot 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 04/13/2018 MERLENECONTRERAS GOLDBERGAN N Ot Z79.899 OTHER SHIP'S ENGINEER (CURRENT) DRUG THERAPY 04/13/2018 MERLENELIBRADO GOLDBERG N Ot C61 MALIGNANT NEOPLASM OF PROSTATE 04/13/2018 MERLENELIBRADO GOLDBERG N Ot 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 04/13/2018 MERLENELIBRADO GOLDBERG N Ot I10 ESSENTIAL (PRIMARY) HYPERTENSION 04/13/2018 MERLENECONTRERAS GOLDBERGAN N Ot 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 04/13/2018 MERLENECONTRERAS GOLDBERGAN N Ot Z79.899 OTHER SHIP'S ENGINEER (CURRENT) DRUG THERAPY 04/13/2018 MERLENELIBRADO GOLDBERG N Ot C61 MALIGNANT NEOPLASM OF PROSTATE 04/13/2018 MERLENELIBRADO GOLDBERG N Ot 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 04/13/2018 MERLENELIBRADO GOLDBERG N Ot D64.9 ANEMIA, UNSPECIFIED 04/13/2018 MERLENE BOBAN N Ot I10 ESSENTIAL (PRIMARY) HYPERTENSION 04/13/2018 MERLNEECONTRERASAN N Ot 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 04/13/2018 MERLENE BOBAN N Ot Z79.899 OTHER PENITENTIARY (CURRENT) DRUG THERAPY 04/13/2018 RAQUEL WOMACK DO Ot Z01.818 ENCOUNTER FOR OTHER PREPROCEDURAL EXAMIN 04/13/2018 RAQUEL WOMACK DO Ot Z01.818 ENCOUNTER FOR OTHER PREPROCEDURAL EXAMIN 04/13/2018 MERLENELIBRADO GOLDBERG N Ot C61 MALIGNANT NEOPLASM OF PROSTATE 04/13/2018 MERLENE, BOBAN N Ot 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 04/13/2018 MERLENE, BOBAN N Ot D64.9 ANEMIA, UNSPECIFIED 04/13/2018 MERLENE, BOBAN N Ot I10 ESSENTIAL (PRIMARY) HYPERTENSION 04/13/2018 MERLENE, BOBAN N Ot 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 04/13/2018 MERLENE, BOBAN N Ot Z79.899 OTHER PENITENTIARY (CURRENT) DRUG THERAPY 04/13/2018 HODA JADE, JUSTICE Waller Ot Z51.81 ENCOUNTER FOR THERAPEUTIC DRUG LEVEL MON 04/13/2018 JUSTICE DRUMMOND MD Ot Z79.01 SHIP'S ENGINEER (CURRENT) USE OF ANTICOAGULANT 04/13/2018 MERLENE, BOBAN N Ot C61 MALIGNANT NEOPLASM OF PROSTATE 04/13/2018 EMRLENE, BOBAN N Ot 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 04/13/2018 MERLENE, BOBAN N Ot D64.9 ANEMIA, UNSPECIFIED 04/13/2018 MERLENE, BOBAN N Ot I10 ESSENTIAL (PRIMARY) HYPERTENSION 04/13/2018 MERLENE, BOBAN N Ot 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 04/13/2018 MERLENE, BOBAN N Ot Z79.899 OTHER SHIP'S ENGINEER (CURRENT) DRUG THERAPY 04/13/2018 MERLENE, BOBAN N Ot C61 MALIGNANT NEOPLASM OF PROSTATE 04/13/2018 MERLENE, BOBAN N Ot 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 04/13/2018 MERLENE, BOBAN N Ot D64.9 ANEMIA, UNSPECIFIED 04/13/2018 MERLENE, BOBAN N Ot 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 04/13/2018 MERLENE, BOBAN N Ot Z79.899 OTHER PENITENTIARY (CURRENT) DRUG THERAPY 04/13/2018 MERLENE, BOBAN N Ot C61 MALIGNANT NEOPLASM OF PROSTATE 04/13/2018 MERLENE, BOBAN N Ot 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 04/13/2018 MERLENE, BOBAN N Ot D64.9 ANEMIA, UNSPECIFIED 04/13/2018 MERLENE, BOBAN N Ot I10 ESSENTIAL (PRIMARY) HYPERTENSION 04/13/2018 MERLENE, BOBAN N Ot 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 04/13/2018 MERLENE, BOBAN N Ot Z79.01 PENITENTIARY (CURRENT) USE OF ANTICOAGULANT 04/13/2018 LIBRADO BLUNT N Ot Z79.899 OTHER PENITENTIARY (CURRENT) DRUG THERAPY 04/13/2018 LIBRADO BLUNT N Ot C61 MALIGNANT NEOPLASM OF PROSTATE 04/13/2018 LIBRADO BLUNT N Ot 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 04/13/2018 LIBRADO BLUNT N Ot D64.9 ANEMIA, UNSPECIFIED 04/13/2018 LIBRADO BLUNT N Ot I10 ESSENTIAL (PRIMARY) HYPERTENSION 04/13/2018 LIBRADO BLUNT N Ot 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 04/13/2018 LIBRADO BLUNT N Ot Z79.01 SHIP'S ENGINEER (CURRENT) USE OF ANTICOAGULANT 04/13/2018 LIBRADO BLUNT N Ot Z79.899 OTHER SHIP'S ENGINEER (CURRENT) DRUG THERAPY 04/13/2018 JYOTHI BETHEA MD Ot C61 MALIGNANT NEOPLASM OF PROSTATE 04/13/2018 Ot C61 MALIGN ANT NEOPLASM OF PROSTATE 04/13/2018 Ot C77.9 SECO NDARY AND UNSP MALIGNANT NEOPLASM OF 04/13/2018 Ot D64.9 ANEM IA, UNSPECIFIED 04/13/2018 Ot I10 ESSENT IAL (PRIMARY) HYPERTENSION 04/13/2018 Ot Z79.01 ROBERT G TERM (CURRENT) USE OF ANTICOAGULANT 04/13/2018 Ot Z79.899 OT HER PENITENTIARY (CURRENT) DRUG THERAPY 04/26/2018 CHAS JADE, JUAN RAMON E Ot 185 MALIGN NEOPL PROSTATE 04/26/2018 CHAS JADE, JUAN RAMON E Ot 185 MALIGN NEOPL PROSTATE 04/26/2018 CHAS JADE, JUAN RAMON E Ot 185 MALIGN NEOPL PROSTATE 04/26/2018 CHAS JADE, JUAN RAMON E Ot 185 MALIGN NEOPL PROSTATE 04/26/2018 HODA JADE, JUSTICE Waller Ot 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 04/26/2018 JUSTICE DRUMMOND MD Ot 427.31 ATRIAL FIBRILLATION 04/26/2018 CHAS JADE, JUAN RAMON E Ot 185 MALIGN NEOPL PROSTATE 04/26/2018 CHAS JADE, JUAN RAMON E Ot 185 MALIGN NEOPL PROSTATE 04/26/2018 LIBRADO BLUNT N Ot 185 MALIGN NEOPL PROSTATE 04/26/2018 LIBRADO BLUNT N Ot 185 MALIGN NEOPL PROSTATE 04/26/2018 LIBRADO BLUNT N Ot 185 MALIGN NEOPL PROSTATE 04/26/2018 MERLENE, BOBAN N Ot 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 04/26/2018 MERLENE, BOBAN N Ot 401.9 HYPERTENSION NOS 04/26/2018 MERLENE, BOBAN N Ot V15.3 HX OF IRRADIATION 04/26/2018 MERLENE, BOBAN N Ot V58.69 OTH MED,LT,CURRENT USE 04/26/2018 MERLENE, BOBAN N Ot 185 MALIGN NEOPL PROSTATE 04/26/2018 MERLENE BOBAN N Ot 185 MALIGN NEOPL PROSTATE 04/26/2018 MERLENE, BOBAN N Ot 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 04/26/2018 MERLENE BOBAN N Ot 401.9 HYPERTENSION NOS 04/26/2018 MERLENE, BOBAN N Ot V15.3 HX OF IRRADIATION 04/26/2018 MERLENE BOBAN N Ot V58.69 OTH MED,LT,CURRENT USE 04/26/2018 HODA JADE, JUSTICE Waller Ot 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 04/26/2018 HODA JADE, JUSTICE Waller Ot 427.31 ATRIAL FIBRILLATION 04/26/2018 MERLENE, BOBAN N Ot C61 MALIGNANT NEOPLASM OF PROSTATE 04/26/2018 MERLENE BOBAN N Ot C61 MALIGNANT NEOPLASM OF PROSTATE 04/26/2018 MERLENE, BOBAN N Ot 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 04/26/2018 MERLENE, BOBAN N Ot 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 04/26/2018 MERLENE, BOBAN N Ot Z79.899 OTHER SHIP'S ENGINEER (CURRENT) DRUG THERAPY 04/26/2018 MERLENE, BOBAN N Ot C61 MALIGNANT NEOPLASM OF PROSTATE 04/26/2018 MERLENE, BOBAN N Ot 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 04/26/2018 MERLENE, BOBAN N Ot I10 ESSENTIAL (PRIMARY) HYPERTENSION 04/26/2018 MERLENE BOBAN N Ot 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 04/26/2018 MERLENE, BOBAN N Ot Z79.899 OTHER PENITENTIARY (CURRENT) DRUG THERAPY 04/26/2018 MERLENE, BOBAN N Ot C61 MALIGNANT NEOPLASM OF PROSTATE 04/26/2018 MERLENE, BOBAN N Ot 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 04/26/2018 MERLENE, BOBAN N Ot D64.9 ANEMIA, UNSPECIFIED 04/26/2018 MERLENE, BOBAN N Ot I10 ESSENTIAL (PRIMARY) HYPERTENSION 04/26/2018 MERLENELIBRADO GOLDBERG N Ot 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 04/26/2018 MERLENELIBRADO GOLDBERG N Ot Z79.899 OTHER SHIP'S ENGINEER (CURRENT) DRUG THERAPY 04/26/2018 RAQUEL WOMACK DO Ot Z01.818 ENCOUNTER FOR OTHER PREPROCEDURAL EXAMIN 04/26/2018 RAQUEL WOMACK DO Ot Z01.818 ENCOUNTER FOR OTHER PREPROCEDURAL EXAMIN 04/26/2018 LIBRADO BLUNT N Ot C61 MALIGNANT NEOPLASM OF PROSTATE 04/26/2018 MERLENECONTRERAS GOLDBERGAN N Ot 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 04/26/2018 MERLENE, CONTRERASBRITNEY N Ot D64.9 ANEMIA, UNSPECIFIED 04/26/2018 MERLENELIBRADO N Ot I10 ESSENTIAL (PRIMARY) HYPERTENSION 04/26/2018 MERLENELIBRADO GOLDBERG N Ot 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 04/26/2018 MERLENELIBRADO GOLDBERG N Ot Z79.899 OTHER PENITENTIARY (CURRENT) DRUG THERAPY 04/26/2018 HODA JADE, JUSTICE Waller Ot Z51.81 ENCOUNTER FOR THERAPEUTIC DRUG LEVEL MON 04/26/2018 HODA JADE, JUSTICE Waller Ot Z79.01 SHIP'S ENGINEER (CURRENT) USE OF ANTICOAGULANT 04/26/2018 LIBRADO BLUNT N Ot C61 MALIGNANT NEOPLASM OF PROSTATE 04/26/2018 MERLENE BOBBRITNEY N Ot 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 04/26/2018 MERLENELIBRADO GOLDBERG N Ot D64.9 ANEMIA, UNSPECIFIED 04/26/2018 MERLENELIBRADO GOLDBERG N Ot I10 ESSENTIAL (PRIMARY) HYPERTENSION 04/26/2018 MERLENELIBRADO N Ot 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 04/26/2018 MERLENE BOBAN N Ot Z79.899 OTHER SHIP'S ENGINEER (CURRENT) DRUG THERAPY 04/26/2018 MERLENELIBRADO N Ot C61 MALIGNANT NEOPLASM OF PROSTATE 04/26/2018 MERLENE BOBAN N Ot 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 04/26/2018 MERLENE BOBAN N Ot D64.9 ANEMIA, UNSPECIFIED 04/26/2018 MERLENE CONTRERASAN N Ot 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 04/26/2018 MERLENE CONTRERASAN N Ot Z79.899 OTHER PENITENTIARY (CURRENT) DRUG THERAPY 04/26/2018 LIBRADO BLUNT Ot C61 MALIGNANT NEOPLASM OF PROSTATE 04/26/2018 MERLENELIBRADO GOLDBERG Ot 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 04/26/2018 LIBRADO BLUNT N Ot D64.9 ANEMIA, UNSPECIFIED 04/26/2018 LIBRADO BLUNT N Ot I10 ESSENTIAL (PRIMARY) HYPERTENSION 04/26/2018 LIBRADO BLUNT N Ot 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 04/26/2018 LIBRADO BLUNT N Ot Z79.01 PENITENTIARY (CURRENT) USE OF ANTICOAGULANT 04/26/2018 LIBRADO BLUNT N Ot Z79.899 OTHER SHIP'S ENGINEER (CURRENT) DRUG THERAPY 04/26/2018 LIBRADO BLUNT N Ot C61 MALIGNANT NEOPLASM OF PROSTATE 04/26/2018 MERLENELIBRADO GOLDBERG N Ot 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 04/26/2018 LIBRADO BLUNT N Ot D64.9 ANEMIA, UNSPECIFIED 04/26/2018 LIBRADO BLUNT N Ot I10 ESSENTIAL (PRIMARY) HYPERTENSION 04/26/2018 LIBRADO BLUNT N Ot 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 04/26/2018 LIBRADO BLUNT N Ot Z79.01 PENITENTIARY (CURRENT) USE OF ANTICOAGULANT 04/26/2018 LIBRADO BLUNT N Ot Z79.899 OTHER PENITENTIARY (CURRENT) DRUG THERAPY 04/26/2018 JYOTHI BETHEA MD Ot C61 MALIGNANT NEOPLASM OF PROSTATE 04/26/2018 Ot C61 MALIGN ANT NEOPLASM OF PROSTATE 04/26/2018 Ot C77.9 SECO NDARY AND UNSP MALIGNANT NEOPLASM OF 04/26/2018 Ot D64.9 ANEM IA, UNSPECIFIED 04/26/2018 Ot I10 ESSENT IAL (PRIMARY) HYPERTENSION 04/26/2018 Ot Z79.01 ROBERT G TERM (CURRENT) USE OF ANTICOAGULANT 04/26/2018 Ot Z79.899 OT HER SHIP'S ENGINEER (CURRENT) DRUG THERAPY 06/22/2018 LIBRADO BLUNT N Ot C61 MALIGNANT NEOPLASM OF PROSTATE 06/22/2018 MERLENELIBRADO GOLDBERG N Ot 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 06/22/2018 LIBRADO BLUNT N Ot D64.9 ANEMIA, UNSPECIFIED 06/22/2018 MERLENE, BOBAN N Ot D69.6 THROMBOCYTOPENIA, UNSPECIFIED 06/22/2018 MERLENE, BOBAN N Ot I10 ESSENTIAL (PRIMARY) HYPERTENSION 06/22/2018 MERLENECONTRERASAN N Ot Z79.01 PENITENTIARY (CURRENT) USE OF ANTICOAGULANT 06/22/2018 MERLENE, BOBAN N Ot Z79.899 OTHER PENITENTIARY (CURRENT) DRUG THERAPY 07/11/2018 MERLENE BOBAN N Ot C61 MALIGNANT NEOPLASM OF PROSTATE 07/11/2018 MERLENE BOBAN N Ot 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 07/11/2018 MERLENE, BOBAN N Ot D64.9 ANEMIA, UNSPECIFIED 07/11/2018 MERLENE, BOBAN N Ot D69.6 THROMBOCYTOPENIA, UNSPECIFIED 07/11/2018 MERLENE, BOBAN N Ot I10 ESSENTIAL (PRIMARY) HYPERTENSION 07/11/2018 MERLENE, BOBAN N Ot Z79.01 PENITENTIARY (CURRENT) USE OF ANTICOAGULANT 07/11/2018 MERLENE, BOBAN N Ot Z79.899 OTHER SHIP'S ENGINEER (CURRENT) DRUG THERAPY 07/25/2018 MERLENE BOBAN N Ot C61 MALIGNANT NEOPLASM OF PROSTATE 07/25/2018 MERLENE, BOBAN N Ot 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 07/25/2018 MERLENE, BOBAN N Ot D64.9 ANEMIA, UNSPECIFIED 07/25/2018 MERLENE, BOBAN N Ot D69.6 THROMBOCYTOPENIA, UNSPECIFIED 07/25/2018 MERLENE, BOBAN N Ot I10 ESSENTIAL (PRIMARY) HYPERTENSION 07/25/2018 MERLENE BOBAN N Ot Z79.01 PENITENTIARY (CURRENT) USE OF ANTICOAGULANT 07/25/2018 MERLENE BOBAN N Ot Z79.899 OTHER SHIP'S ENGINEER (CURRENT) DRUG THERAPY 07/26/2018 MERLENE BOBAN N Ot C61 MALIGNANT NEOPLASM OF PROSTATE 07/26/2018 MERLENE, BOBAN N Ot 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 07/26/2018 MERLENE, BOBAN N Ot D64.9 ANEMIA, UNSPECIFIED 07/26/2018 MERLENE, BOBAN N Ot D69.6 THROMBOCYTOPENIA, UNSPECIFIED 07/26/2018 MERLENE, BOBAN N Ot I10 ESSENTIAL (PRIMARY) HYPERTENSION 07/26/2018 MERLENE, BOBAN N Ot Z79.01 SHIP'S ENGINEER (CURRENT) USE OF ANTICOAGULANT 07/26/2018 MERLENE, BOBAN N Ot Z79.899 OTHER PENITENTIARY (CURRENT) DRUG THERAPY 10/02/2018 CHAS JADE, JUAN RAMON E Ot 185 MALIGN NEOPL PROSTATE 10/02/2018 CHAS JADE, JUAN RAMON E Ot 185 MALIGN NEOPL PROSTATE 10/02/2018 CHAS JADE, JUAN RAMON E Ot 185 MALIGN NEOPL PROSTATE 10/02/2018 CHAS JADE, JUAN RAMON E Ot 185 MALIGN NEOPL PROSTATE 10/02/2018 HODA JADE, JUSTICE Waller Ot 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 10/02/2018 HODA JADE, JUSTICE Waller Ot 427.31 ATRIAL FIBRILLATION 10/02/2018 CHAS JADE, JUAN RAMON E Ot 185 MALIGN NEOPL PROSTATE 10/02/2018 CHAS JADE, JUAN RAMON E Ot 185 MALIGN NEOPL PROSTATE 10/02/2018 MERLENE, BOBAN N Ot 185 MALIGN NEOPL PROSTATE 10/02/2018 MERLENE, BOBAN N Ot 185 MALIGN NEOPL PROSTATE 10/02/2018 MERLENE, BOBAN N Ot 185 MALIGN NEOPL PROSTATE 10/02/2018 MERLENE, BOBAN N Ot 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 10/02/2018 MERLENE, BOBAN N Ot 401.9 HYPERTENSION NOS 10/02/2018 MERLENE, BOBAN N Ot V15.3 HX OF IRRADIATION 10/02/2018 MERLENE, BOBAN N Ot V58.69 OTH MED,LT,CURRENT USE 10/02/2018 MERLENE, BOBAN N Ot 185 MALIGN NEOPL PROSTATE 10/02/2018 MERLENE, BOBAN N Ot 185 MALIGN NEOPL PROSTATE 10/02/2018 MERLENE, BOBAN N Ot 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 10/02/2018 MERLENE, BOBAN N Ot 401.9 HYPERTENSION NOS 10/02/2018 MERLENE, BOBAN N Ot V15.3 HX OF IRRADIATION 10/02/2018 MERLENE, BOBAN N Ot V58.69 OTH MED,LT,CURRENT USE 10/02/2018 HODA JADE, JUSTICE Waller Ot 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 10/02/2018 HODA JADE, JUSTICE L Ot 427.31 ATRIAL FIBRILLATION 10/02/2018 MERLENE, BOBAN N Ot C61 MALIGNANT NEOPLASM OF PROSTATE 10/02/2018 MERLENE BOBAN N Ot C61 MALIGNANT NEOPLASM OF PROSTATE 10/02/2018 MERLENE BOBAN N Ot 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 10/02/2018 LIBRADO BLUNT N Ot 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 10/02/2018 LIBRADO BLUNT N Ot Z79.899 OTHER SHIP'S ENGINEER (CURRENT) DRUG THERAPY 10/02/2018 LIBRADO BLUNT N Ot C61 MALIGNANT NEOPLASM OF PROSTATE 10/02/2018 LIBRADO BLUNT N Ot 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 10/02/2018 LIBRADO BLUNT N Ot I10 ESSENTIAL (PRIMARY) HYPERTENSION 10/02/2018 LIBRADO BLUNT N Ot 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 10/02/2018 LIBRADO BLUNT N Ot Z79.899 OTHER SHIP'S ENGINEER (CURRENT) DRUG THERAPY 10/02/2018 LIBRADO BLUNT N Ot C61 MALIGNANT NEOPLASM OF PROSTATE 10/02/2018 LIBRADO BLUNT N Ot 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 10/02/2018 LIBRADO BLUNT N Ot D64.9 ANEMIA, UNSPECIFIED 10/02/2018 MERLENE, BOBBRITNEY N Ot I10 ESSENTIAL (PRIMARY) HYPERTENSION 10/02/2018 LIBRADO BLUNT N Ot 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 10/02/2018 LIBRADO BLUNT N Ot Z79.899 OTHER PENITENTIARY (CURRENT) DRUG THERAPY 10/02/2018 RAQUEL WOMACK DO Ot Z01.818 ENCOUNTER FOR OTHER PREPROCEDURAL EXAMIN 10/02/2018 RAQUEL WOMACK DO Ot Z01.818 ENCOUNTER FOR OTHER PREPROCEDURAL EXAMIN 10/02/2018 LIBRADO BLUNT N Ot C61 MALIGNANT NEOPLASM OF PROSTATE 10/02/2018 LIBRADO BLUNT N Ot 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 10/02/2018 LIBRADO BLUNT N Ot D64.9 ANEMIA, UNSPECIFIED 10/02/2018 MERLENE BOBAN N Ot I10 ESSENTIAL (PRIMARY) HYPERTENSION 10/02/2018 MERLENE BOBBRITNEY N Ot 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 10/02/2018 MERLENE, BOBAN N Ot Z79.899 OTHER PENITENTIARY (CURRENT) DRUG THERAPY 10/02/2018 HODA JADE, JUSTICE Waller Ot Z51.81 ENCOUNTER FOR THERAPEUTIC DRUG LEVEL MON 10/02/2018 JUSTICE DRUMMOND MD Ot Z79.01 PENITENTIARY (CURRENT) USE OF ANTICOAGULANT 10/02/2018 LIBRADO BLUNT N Ot C61 MALIGNANT NEOPLASM OF PROSTATE 10/02/2018 MERLENECONTRERASAN N Ot 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 10/02/2018 MERLENELIBRADO GOLDBERG N Ot D64.9 ANEMIA, UNSPECIFIED 10/02/2018 MERLENE BOBAN N Ot I10 ESSENTIAL (PRIMARY) HYPERTENSION 10/02/2018 MERLENECONTRERASAN N Ot 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 10/02/2018 MERLENECONTRERASAN N Ot Z79.899 OTHER PENITENTIARY (CURRENT) DRUG THERAPY 10/02/2018 MERLENE BOBBRITNEY N Ot C61 MALIGNANT NEOPLASM OF PROSTATE 10/02/2018 MERLENE BOBAN N Ot 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 10/02/2018 MERLENELIBRADO N Ot D64.9 ANEMIA, UNSPECIFIED 10/02/2018 MERLENE BOBAN N Ot 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 10/02/2018 MERLENELIBRADO GOLDBERG N Ot Z79.899 OTHER SHIP'S ENGINEER (CURRENT) DRUG THERAPY 10/02/2018 MERLENELIBRADO N Ot C61 MALIGNANT NEOPLASM OF PROSTATE 10/02/2018 MERLENE BOBBRITNEY N Ot 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 10/02/2018 MERLENE, BOBBRITNEY N Ot D64.9 ANEMIA, UNSPECIFIED 10/02/2018 MERLENE BOBAN N Ot I10 ESSENTIAL (PRIMARY) HYPERTENSION 10/02/2018 MERLENE BOBAN N Ot 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 10/02/2018 MERLENE CONTRERASBRITNEY N Ot Z79.01 PENITENTIARY (CURRENT) USE OF ANTICOAGULANT 10/02/2018 MERLENE BOBAN N Ot Z79.899 OTHER PENITENTIARY (CURRENT) DRUG THERAPY 10/02/2018 MERLENE BOBAN N Ot C61 MALIGNANT NEOPLASM OF PROSTATE 10/02/2018 MERLENE BOBAN N Ot 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 10/02/2018 MERLENE, BOBAN N Ot D64.9 ANEMIA, UNSPECIFIED 10/02/2018 MERLENE BOBAN N Ot I10 ESSENTIAL (PRIMARY) HYPERTENSION 10/02/2018 MERLENE BOBAN N Ot 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 10/02/2018 MERLENE, BOBAN N Ot Z79.01 SHIP'S ENGINEER (CURRENT) USE OF ANTICOAGULANT 10/02/2018 LIBRADO BLUNT Ot Z79.899 OTHER PENITENTIARY (CURRENT) DRUG THERAPY 10/02/2018 JYOTHI BETHEA MD Ot C61 MALIGNANT NEOPLASM OF PROSTATE 10/02/2018 Ot C61 MALIGN ANT NEOPLASM OF PROSTATE 10/02/2018 Ot C77.9 SECO NDARY AND UNSP MALIGNANT NEOPLASM OF 10/02/2018 Ot D64.9 ANEM IA, UNSPECIFIED 10/02/2018 Ot I10 ESSENT IAL (PRIMARY) HYPERTENSION 10/02/2018 Ot Z79.01 ROBERT G TERM (CURRENT) USE OF ANTICOAGULANT 10/02/2018 Ot Z79.899 OT HER SHIP'S ENGINEER (CURRENT) DRUG THERAPY 10/02/2018 LIBRADO BLUNT Ot C61 MALIGNANT NEOPLASM OF PROSTATE 10/02/2018 MERLENELIBRADO GOLDBERG Ot 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 10/02/2018 LIBRADO BLUNT Ot D64.9 ANEMIA, UNSPECIFIED 10/02/2018 LIBRADO BLUNT N Ot D69.6 THROMBOCYTOPENIA, UNSPECIFIED 10/02/2018 LIBRADO BLUNT Ot I10 ESSENTIAL (PRIMARY) HYPERTENSION 10/02/2018 LIBRADO BLUNT N Ot Z79.01 PENITENTIARY (CURRENT) USE OF ANTICOAGULANT 10/02/2018 LIBRADO BLUNT N Ot Z79.899 OTHER SHIP'S ENGINEER (CURRENT) DRUG THERAPY 10/05/2018 JUSTICE DRUMMOND MD Ot R74.8 ABNORMAL LEVELS OF OTHER SERUM ENZYMES 10/11/2018 JUSTICE DRUMMOND MD Ot I71.4 ABDOMINAL AORTIC ANEURYSM, WITHOUT RUPTU 10/11/2018 JUSTICE DRUMMOND MD, Ot N28.1 CYST OF KIDNEY, ACQUIRED 10/11/2018 JUSTICE DRUMMOND MD Ot Z95.828 PRESENCE OF OTHER VASCULAR IMPLANTS AND 10/26/2018 JUSTICE DRUMMOND MD Ot Z51.81 ENCOUNTER FOR THERAPEUTIC DRUG LEVEL MON 10/26/2018 JUSTICE DRUMMOND MD Ot Z79.01 SHIP'S ENGINEER (CURRENT) USE OF ANTICOAGULANT 10/26/2018 JUSTICE DRUMMOND MD, Ot Z79.899 OTHER SHIP'S ENGINEER (CURRENT) DRUG THERAPY 10/31/2018 JUSTICE DRUMMOND MD Ot I71.4 ABDOMINAL AORTIC ANEURYSM, WITHOUT RUPTU 10/31/2018 JUSTICE DRUMMOND MD, Ot N28.1 CYST OF KIDNEY, ACQUIRED 10/31/2018 JUSTICE DRUMMOND MD, Ot Z95.828 PRESENCE OF OTHER VASCULAR IMPLANTS AND 11/15/2018 JUSTICE DRUMMOND MD, Ot Z51.81 ENCOUNTER FOR THERAPEUTIC DRUG LEVEL MON 11/15/2018 JUSTICE DRUMMOND MD, Ot Z79.01 SHIP'S ENGINEER (CURRENT) USE OF ANTICOAGULANT 11/15/2018 JUSTICE DRUMMOND MD, Ot Z79.899 OTHER PENITENTIARY (CURRENT) DRUG THERAPY 11/28/2018 JUSTICE DRUMMOND MD, Ot I25.10 ATHSCL HEART DISEASE OF [place] CORONARY 11/28/2018 JUSTICE DRUMMOND MD, Ot I25.10 ATHSCL HEART DISEASE OF [place] CORONARY 11/28/2018 JUSTICE DRUMMOND MD, Ot I25.10 ATHSCL HEART DISEASE OF [place] CORONARY 12/03/2018 JUSTICE DRUMMOND MD, Ot I25.10 ATHSCL HEART DISEASE OF [place] CORONARY 12/04/2018 MERLENECONTRERAS GOLDBERGAN N Ot C61 MALIGNANT NEOPLASM OF PROSTATE 12/04/2018 MERLENE BOBAN N Ot 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 12/04/2018 MERLENE BOBAN N Ot D64.9 ANEMIA, UNSPECIFIED 12/04/2018 MERLENE, BOBAN N Ot D69.6 THROMBOCYTOPENIA, UNSPECIFIED 12/04/2018 MRELENE, BOBAN N Ot I10 ESSENTIAL (PRIMARY) HYPERTENSION 12/04/2018 LIBRADO BLUNT N Ot Z79.01 SHIP'S ENGINEER (CURRENT) USE OF ANTICOAGULANT 12/04/2018 LIBRADO BLUNT N Ot Z79.899 OTHER PENITENTIARY (CURRENT) DRUG THERAPY 12/19/2018 JUSTICE DRUMMOND MD Ot I25.10 ATHSCL HEART DISEASE OF [place] CORONARY 12/25/2018 JUSTICE DRUMMOND MD, Ot I25.10 ATHSCL HEART DISEASE OF [place] CORONARY 01/22/2019 MERLENE, BOBAN N Ot C61 MALIGNANT NEOPLASM OF PROSTATE 01/22/2019 MERLENE BOBAN N Ot 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 01/22/2019 MERLENE BOBAN N Ot D64.9 ANEMIA, UNSPECIFIED 01/22/2019 MERLENE, BOBAN N Ot D69.6 THROMBOCYTOPENIA, UNSPECIFIED 01/22/2019 MERLENE BOBAN N Ot I10 ESSENTIAL (PRIMARY) HYPERTENSION 01/22/2019 MERLENELIBRADO N Ot Z79.01 PENITENTIARY (CURRENT) USE OF ANTICOAGULANT 01/22/2019 MERLENE BOBAN N Ot Z79.899 OTHER SHIP'S ENGINEER (CURRENT) DRUG THERAPY 02/03/2019 MERLENE, BOBBRITNEY N Ot C61 MALIGNANT NEOPLASM OF PROSTATE 02/03/2019 MERLENE BOBAN N Ot 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 02/03/2019 MERLENELIBRADO N Ot D64.9 ANEMIA, UNSPECIFIED 02/03/2019 MERLENE BOBAN N Ot D69.6 THROMBOCYTOPENIA, UNSPECIFIED 02/03/2019 MERLENE BOBAN N Ot I10 ESSENTIAL (PRIMARY) HYPERTENSION 02/03/2019 MERLENE, BOBAN N Ot Z79.01 PENITENTIARY (CURRENT) USE OF ANTICOAGULANT 02/03/2019 MERLENE, BOBAN N Ot Z79.899 OTHER SHIP'S ENGINEER (CURRENT) DRUG THERAPY 05/15/2019 MERLENE BOBBRITNEY N Ot C61 MALIGNANT NEOPLASM OF PROSTATE 05/15/2019 MERLENE BOBAN N Ot 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 05/15/2019 MERLENE BOBAN N Ot D64.9 ANEMIA, UNSPECIFIED 05/15/2019 MERLENE, BOBAN N Ot D69.6 THROMBOCYTOPENIA, UNSPECIFIED 05/15/2019 MERLENE, BOBAN N Ot I10 ESSENTIAL (PRIMARY) HYPERTENSION 05/15/2019 MERLENE BOBAN N Ot Z79.01 PENITENTIARY (CURRENT) USE OF ANTICOAGULANT 05/15/2019 MERLENE BOBAN N Ot Z79.899 OTHER SHIP'S ENGINEER (CURRENT) DRUG THERAPY 06/21/2019 MERLENE BOBBRITNEY N Ot C61 MALIGNANT NEOPLASM OF PROSTATE 06/21/2019 MERLENE BOBAN N Ot 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 06/21/2019 MERLENE, BOBAN N Ot D64.9 ANEMIA, UNSPECIFIED 06/21/2019 MERLENE, BOBAN N Ot D69.6 THROMBOCYTOPENIA, UNSPECIFIED 06/21/2019 MERLENE, BOBAN N Ot I10 ESSENTIAL (PRIMARY) HYPERTENSION 06/21/2019 MERLENE, BOBAN N Ot Z79.01 PENITENTIARY (CURRENT) USE OF ANTICOAGULANT 06/21/2019 MERLENE, BOBAN N Ot Z79.899 OTHER SHIP'S ENGINEER (CURRENT) DRUG THERAPY 06/27/2019 MERLENE, BOBAN N Ot C61 MALIGNANT NEOPLASM OF PROSTATE 06/27/2019 MERLENE, BOBAN N Ot 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 06/27/2019 MERLENE, BOBAN N Ot D64.9 ANEMIA, UNSPECIFIED 06/27/2019 MERLENE, BOBAN N Ot D69.6 THROMBOCYTOPENIA, UNSPECIFIED 06/27/2019 MERLENE, BOBAN N Ot I10 ESSENTIAL (PRIMARY) HYPERTENSION 06/27/2019 MERLENE, BOBAN N Ot Z79.01 PENITENTIARY (CURRENT) USE OF ANTICOAGULANT 06/27/2019 MERLENE, BOBAN N Ot Z79.899 OTHER PENITENTIARY (CURRENT) DRUG THERAPY 07/31/2019 MERLENE, BOBAN N Ot C61 MALIGNANT NEOPLASM OF PROSTATE 07/31/2019 MERLENE, BOBAN N Ot 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 07/31/2019 MERLENE, BOBAN N Ot D64.9 ANEMIA, UNSPECIFIED 07/31/2019 MERLENE, BOBAN N Ot D69.6 THROMBOCYTOPENIA, UNSPECIFIED 07/31/2019 MERLENE, BOBAN N Ot I10 ESSENTIAL (PRIMARY) HYPERTENSION 07/31/2019 MERLENE, BOBAN N Ot Z79.01 SHIP'S ENGINEER (CURRENT) USE OF ANTICOAGULANT 07/31/2019 MERLENE, BOBAN N Ot Z79.899 OTHER PENITENTIARY (CURRENT) DRUG THERAPY 08/01/2019 MERLENE, BOBBRITNEY N Ot C61 MALIGNANT NEOPLASM OF PROSTATE 08/01/2019 MERLENE BOBAN N Ot 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 08/01/2019 MERLENE, BOBAN N Ot D64.9 ANEMIA, UNSPECIFIED 08/01/2019 MERLENE, BOBAN N Ot D69.6 THROMBOCYTOPENIA, UNSPECIFIED 08/01/2019 MERLENE, BOBAN N Ot I10 ESSENTIAL (PRIMARY) HYPERTENSION 08/01/2019 MERLENE, BOBAN N Ot Z79.01 SHIP'S ENGINEER (CURRENT) USE OF ANTICOAGULANT 08/01/2019 MERLENE, BOBAN N Ot Z79.899 OTHER SHIP'S ENGINEER (CURRENT) DRUG THERAPY 11/19/2019 Ot C61 MALIGN ANT NEOPLASM OF PROSTATE 11/19/2019 Ot C77.9 SECO NDARY AND UNSP MALIGNANT NEOPLASM OF 11/19/2019 Ot D64.9 ANEM IA, UNSPECIFIED 11/19/2019 Ot D69.6 THRO MBOCYTOPENIA, UNSPECIFIED 11/19/2019 Ot I10 ESSENT IAL (PRIMARY) HYPERTENSION 11/19/2019 Ot Z79.01 ROBERT G TERM (CURRENT) USE OF ANTICOAGULANT 11/19/2019 Ot Z79.899 OT HER SHIP'S ENGINEER (CURRENT) DRUG THERAPY Procedures There is no data. Results Test Result Range PT panel in platelet poor plasma by coag ulation assay - 02/24/16 08:05 Prothrombin time (PT) in platelet poor plasma by coagu lation assay 27.5 s 12.2-14.7 INR in platelet poor plasma or blood by coagulation as say 2.6 0.8-1.4 PSA - 09/25/18 09:03 PSA, TOTAL <0.1 ng/mL < OR = 4.0 TEST AUTHORIZATION - 09/25/18 09:03 TEST NAME: PSA, TOTAL NRG TEST CODE: [id number] NR CLIENT CONTACT: ALBERTINA Anthony NR REPORT ALWAYS MESSAGE SIGNATURE NRG COMMENT NRG CBC - 12/14/18 16:14 WHITE BLOOD CELL COUNT 5.0 Thousand/uL 3 .8-10.8 RED BLOOD CELL COUNT 3.76 Million/uL 4.2 0-5.80 HEMOGLOBIN 12.0 g/dL 13.2-17.1 HEMATOCRIT 35.5 % 38.5-50.0 MCV 94.4 fL 80.0-100.0 MCH 31.9 pg 27.0-33.0 MCHC 33.8 g/dL 32.0-36.0 RDW 12.9 % 11.0-15.0 PLATELET COUNT 97 Thousand/uL 140-400 MPV 9.0 fL 7.5-12.5 ABSOLUTE NEUTROPHILS 2860 cells/uL 1500- 7800 ABSOLUTE LYMPHOCYTES 1360 cells/uL 850-3 900 ABSOLUTE MONOCYTES 550 cells/uL 200-950 ABSOLUTE EOSINOPHILS 200 cells/uL 15-500 ABSOLUTE BASOPHILS 30 cells/uL 0-200 NEUTROPHILS 57.2 % NRG LYMPHOCYTES 27.2 % NRG MONOCYTES 11.0 % NRG EOSINOPHILS 4.0 % NRG BASOPHILS 0.6 % NRG TSH w/ FREE T4 - 04/29/19 09:27 TSH 3.35 mIU/L 0.40-4.50 T4, FREE 0.9 ng/dL 0.8-1.8 LIPID PANEL - 04/29/19 09:27 CHOLESTEROL, TOTAL 159 mg/dL <200 HDL CHOLESTEROL 43 mg/dL >40 TRIGLYCERIDES 109 mg/dL <150 LDL-CHOLESTEROL 95 mg/dL (calc) NRG CHOL/HDLC RATIO 3.7 (calc) <5.0 NON HDL CHOLESTEROL 116 mg/dL (calc) <13 0 CMP - 04/29/19 09:27 GLUCOSE 98 mg/dL 65-99 UREA NITROGEN (BUN) 19 mg/dL 7-25 CREATININE 0.91 mg/dL 0.70-1.11 eGFR NON-AFR. INDIAN 79 mL/min/1.73m2 > OR = 60 eGFR 91 mL/min/1.73m2 > OR = 60 BUN/CREATININE RATIO NOT APPLICABLE (calc) 6-22 SODIUM 142 mmol/L 135-146 POTASSIUM 4.3 mmol/L 3.5-5.3 CHLORIDE 104 mmol/L 98-110 CARBON DIOXIDE 31 mmol/L 20-32 CALCIUM 9.2 mg/dL 8.6-10.3 PROTEIN, TOTAL 6.5 g/dL 6.1-8.1 ALBUMIN 3.6 g/dL 3.6-5.1 GLOBULIN 2.9 g/dL (calc) 1.9-3.7 ALBUMIN/GLOBULIN RATIO 1.2 (calc) 1.0-2. 5 BILIRUBIN, TOTAL 0.5 mg/dL 0.2-1.2 ALKALINE PHOSPHATASE 234 U/L 40-115 AST 20 U/L 10-35 ALT 11 U/L 9-46 CBC w/MANUAL DIFF - 04/29/19 09:27 WHITE BLOOD CELL COUNT 5.0 Thousand/uL 3 .8-10.8 RED BLOOD CELL COUNT 3.94 Million/uL 4.2 0-5.80 HEMOGLOBIN 12.7 g/dL 13.2-17.1 HEMATOCRIT 37.3 % 38.5-50.0 MCV 94.7 fL 80.0-100.0 MCH 32.2 pg 27.0-33.0 MCHC 34.0 g/dL 32.0-36.0 RDW 13.0 % 11.0-15.0 PLATELET COUNT 119 Thousand/uL 140-400 MPV 9.9 fL 7.5-12.5 ABSOLUTE NEUTROPHILS 3080 cells/uL 1500- 7800 ABSOLUTE MONOCYTES 355 cells/uL 200-950 ABSOLUTE EOSINOPHILS 200 cells/uL 15-500 ABSOLUTE BASOPHILS 50 cells/uL 0-200 NEUTROPHILS 61.6 % NRG LYMPHOCYTES 26.3 % NRG MONOCYTES 7.1 % NRG EOSINOPHILS 4.0 % NRG BASOPHILS 1.0 % NRG ABSOLUTE LYMPHOCYTES 1315 cells/uL 850-3 900 PLATELET ESTIMATION DECREASED ADEQUATE CBC MORPHOLOGY NORMAL CBC w/MANUAL DIFF - 08/23/19 11:05 WHITE BLOOD CELL COUNT 8.0 Thousand/uL 3 .8-10.8 RED BLOOD CELL COUNT 3.87 Million/uL 4.2 0-5.80 HEMOGLOBIN 12.2 g/dL 13.2-17.1 HEMATOCRIT 36.6 % 38.5-50.0 MCV 94.6 fL 80.0-100.0 MCH 31.5 pg 27.0-33.0 MCHC 33.3 g/dL 32.0-36.0 RDW 12.6 % 11.0-15.0 PLATELET COUNT 110 Thousand/uL 140-400 MPV 9.4 fL 7.5-12.5 ABSOLUTE NEUTROPHILS 6640 cells/uL 1500- 7800 ABSOLUTE MONOCYTES 240 cells/uL 200-950 ABSOLUTE EOSINOPHILS 0 cells/uL 15-500 ABSOLUTE BASOPHILS 80 cells/uL 0-200 NEUTROPHILS 83.0 % NRG LYMPHOCYTES 12.0 % NRG MONOCYTES 3.0 % NRG EOSINOPHILS 0 % NRG BASOPHILS 1.0 % NRG ABSOLUTE METAMYELOCYTES 80 cells/uL ABSOLUTE LYMPHOCYTES 960 cells/uL 850-39 00 METAMYELOCYTES 1.0 % NRG COMMENT(S) NRG Encounters ACCT No. Visit Date/Time Discharge Status Pt. Type Provider Facility Loc./Unit Complaint [id number] 11/19/2019 15:40:00 ACT Outpatient JUSTICE DRUMMOND [facility] CIT Y [id number] 08/23/2019 11:00:00 Document Registration [id number] 2019 08:30:00 Document Registration [id number] 12/14/2018 16:00:00 Document Registration [id number] 09/25/2018 08:20:00 Document Registration [id number] 05/02/2019 09:47:00 020 00:01:00 DIS Outpatient LIBRADO BLUNT [facility] ONC [id number] 10/24/2018 08:45:00 019 00:01:00 DIS Outpatient LIBRADO BLUNT V [facility] ONC [id number] 11/29/2018 08:59:00 019 23:59:59 CLS Outpatient JUSTICE DRUMMOND MD, V [facility] RAD FS ARTERIOSCLEROTIC CAD [id number] 10/24/2018 08:59:00 019 23:59:59 CLS Outpatient JUSTICE DRUMMOND MD, V [facility] LAB [id number] 10/04/2018 11:03:00 23:59:59 CLS Outpatient JUSTICE DRUMMOND MD, V [facility] RAD FS ELEVATED LIVER ENZYMES [id number] 04/26/2018 09:41:00 019 00:01:00 DIS Outpatient LIBRADO BLUNT V [facility] ONC [id number] 10/24/2017 09:25:00 018 00:01:00 DIS Outpatient LIBRADO BLUNT V [facility] ONC [id number] 05/10/2017 10:55:00 017 23:59:59 CLS Outpatient JYOTHI BETHEA MD, V [facility] ONC [id number] 11/22/2016 13:46:00 017 23:59:59 CLS Outpatient LIBRADO BLUNT V [facility] FS [id number] 08/30/2016 13:27:00 017 23:59:59 CLS Outpatient LIBRADO BLUNT V [facility] FS [id number] 08/26/2016 13:01:00 017 23:59:59 CLS Outpatient LIBRADO BLUNT V [facility] ONC [id number] 05/24/2016 12:57:00 016 23:59:59 CLS Outpatient LIBRADO BLUNT V [facility] FS [id number] 02/24/2016 07:55:00 016 00:01:00 DIS Outpatient LIBRADO BLUNT V [facility] ONC [id number] 03/01/2016 10:50:00 09/06/2 016 23:59:59 CLS Outpatient LIBRADO BLUNT V [facility] FS [id number] 02/24/2016 08:14:00 016 23:59:59 CLS Outpatient JUSTICE DRUMMOND MD, V [facility] LAB [id number] 12/07/2015 08:37:00 016 00:01:00 DIS Outpatient LIBRADO BLUNT V [facility] ONC [id number] 01/19/2016 12:43:00 016 15:20:00 DIS Outpatient RAQUEL WOMACK DO D [facility] SDC BLOOD IN STOOL [id number] 01/14/2016 06:35:00 016 23:59:59 CLS Outpatient WOMACK RAQUEL CORONA D [facility] PREOP BLOOD IN STOOL [id number] 01/11/2016 15:00:00 016 23:59:59 CLS Outpatient WOMACK DORAQUEL D [facility] PREOP BLOOD IN STOOL [id number] 11/17/2015 13:00:00 016 23:59:59 CLS Outpatient LIBRADO BLUNT V [facility] FS [id number] 08/25/2015 10:55:00 016 23:59:59 CLS Outpatient LIBRADO BLUNT V [facility] FS [id number] 05/26/2015 15:55:00 015 23:59:59 CLS Outpatient LIBRADO BLUNT V [facility] FS [id number] 05/18/2015 11:59:00 015 23:59:59 CLS Outpatient LIBRADO BLUNT V [facility] CARD PROSTATE CA [id number] 03/03/2015 16:20:00 015 00:01:00 DIS Outpatient LIBRADO BLUNT V [facility] ONC [id number] 03/03/2015 14:06:00 23:59:59 CLS Outpatient LIBRADO BLUNT V [facility] FS [id number] 02/25/2015 16:22:00 23:59:59 CLS Outpatient JUSTICE DRUMMOND MD, V [facility] LAB [id number] 02/25/2015 16:17:00 23:59:59 CLS Outpatient LIBRADO BLUNT V [facility] ONC [id number] 10/22/2014 09:52:00 00:01:00 DIS Outpatient LIBRADO BLUNT V [facility] ONC [id number] 11/18/2014 13:36:00 23:59:59 CLS Outpatient LIBRADO BLUNT V [facility] FS [id number] 10/16/2014 08:52:00 23:59:59 CLS Outpatient LIBRADO BLUNT V [facility] PROSTATE CANCER [id number] 10/16/2014 09:30:00 09:30:00 CAN Preadmit LIBRADO BLUNT [facility] CARD [id number] 10/09/2014 12:00:00 23:59:59 CLS Outpatient LIBRADO BLUNT V [facility] PROSTATE CANCER [id number] 09/19/2014 11:18:00 23:59:59 CLS Outpatient JUAN RAMON DOHERTY MD [facility] RAD PROSTATE CANCER [id number] 09/17/2014 15:44:00 23:59:59 CLS Outpatient JUAN RAMON DOHERTY MD [facility] ONC [id number] 09/15/2014 09:57:00 23:59:59 CLS Outpatient JUSTICE DRUMMOND MD, V [facility] LAB [id number] 09/15/2014 09:52:00 23:59:59 CLS Outpatient JUAN RAMON DOHERTY MD [facility] ONC [id number] 06/27/2014 10:20:00 015 23:59:59 CLS Outpatient JUAN RAMON DOHERTY MD [facility] CARD PROSTATE CA [id number] 06/23/2014 09:10:00 014 23:59:59 CLS Outpatient JUAN RAMON DOHERTY MD [facility] ONC [id number] 06/16/2014 12:52:00 014 23:59:59 CLS Outpatient JUAN RAMON DOHERTY MD [facility] ONC [id number] 08/01/2019 14:48:00 Document Registration [id number] 10/03/2017 14:12:00 Document Registration [id number] 08/27/2012 10:52:00 Document Registration [id number] 08/27/2012 09:55:00 Document Registration [id number] 03/23/2011 09:36:00 Document Registration [id number] 08/30/2010 13:35:00 Document Registration [id number] 07/15/2010 09:02:00 Document Registration [id number] 01/26/2010 06:00:00 Document Registration [id number] 01/21/2010 08:42:00 Document Registration
[2019-11-22 13:18] LABS: BUN/CREATININE RATIO 17; CALCIUM 9.5 MG/DL (8.5-10.1); CARBON DIOXIDE 28 MMOL/L (21-32); CHLORIDE 102 MMOL/L (98-107); CREATININE SERUM 1.06 MG/DL (0.60-1.30); GFR ESTIMATED > 60; GLUCOSE 98 MG/DL (70-105); MAGNESIUM 2.2 MG/DL (1.6-2.4); POTASSIUM 4.6 MMOL/L (3.6-5.0); SODIUM 142 MMOL/L (135-145)
[2019-11-22 13:19] LABS: ALANINE AMINOTRANSFERASE 9 U/L (0-55); ALBUMIN 3.8 GM/DL (3.2-4.5); ALKALINE PHOSPHATASE 284 U/L (40-136); BILIRUBIN,TOTAL 0.4 MG/DL (0.1-1.0); TOTAL PROTEIN 6.8 GM/DL (6.4-8.2)
[2019-11-22] MEDS ORDERED: FUROSEMIDE 40 MG/4 ML INJ (LASIX) IVP ONE (13:45)
[2019-11-22] MEDS ORDERED: HOLD METFORMIN - RECEIVED CONTRAST 20 ML VIAL IV SCH (14:30)
[2019-11-22] MEDS ORDERED: IOHEXOL 350 MG/ML 150 ML (OMNIPAQUE 350) VIAL IV ONE (14:30)
[2019-11-22] MEDS ORDERED: NS 100 ML (IVPB) BAG IV ONE (14:30)
[2019-11-22] MEDS ORDERED: CATHETER FLUSH 10 ML SYR IV PRN (14:30)
--- NOTE | 2019-11-22 15:20 | Diagnostic Imaging Report ---
EXAMINATION: CT angiography of the chest. TECHNIQUE: Contrast enhanced thin section helical images were obtained through the chest with intravenous contrast timed for the optimal opacification of the arterial structures per CTA protocol. Post-processing, reconstructions and interpretation of angiographic images of the vessels was performed. 3D MIP reconstructions were performed and reviewed. All CT scans use one or more of the following dose optimizing techniques: automated exposure control, MA and/or KvP adjustment based on a patient size and exam type, or iterative reconstruction. HISTORY: Shortness of breath. COMPARISON: 09/19/2014. FINDINGS: There is no pulmonary embolism. 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 There is consolidation of the posterior basilar segment of the left lower lobe concerning for pneumonia. No pleural effusion. No pneumothorax. No suspicious nodules. Heart size is normal. There are moderate coronary artery calcifications. No pericardial effusion. Aorta is normal in caliber. There is no axillary or supraclavicular lymphadenopathy. There is no mediastinal lymphadenopathy. There has been median sternotomy for coronary artery bypass grafting. Limited views of the upper abdomen are unremarkable. There are no suspicious osseus lesions. IMPRESSION: 1. No pulmonary embolism. 2. Consolidation of the posterior basilar segment of the left lower lobe concerning for pneumonia. Dictated by: Dictated on workstation # [id number]
[2019-11-22] MEDS ORDERED: LEVOFLOXACIN 750 MG/150 ML IV 150 ML IV ONE (16:00)
[2019-11-22] MEDS ORDERED: LEVO750T9 PO (16:07)
[2019-11-22 18:17] VITALS: BP 136/85
== END 2019-11-22 18:13 | disposition home or self-care (01) ==
LOC: EDUNIT# 12:17 → ER FS 12:18
DX: J18.9 Pneumonia, unspecified organism (principal); R79.89 Other specified abnormal findings of blood chemistry; Z86.718 Personal history of other venous thrombosis and embolism; Z79.01 Long term (current) use of anticoagulants; Z95.1 Presence of aortocoronary bypass graft; Z88.0 Allergy status to penicillin; Z88.2 Allergy status to sulfonamides; Z87.891 Personal history of nicotine dependence
CPT/HCPCS: 36415; 71045; 71275; 80053; 83605; 83735; 83880; 84484; 85025; 85379; 85610; 87040; 93005; 93041; 96374; 96375

== ENCOUNTER 2020-03-18 14:35 | Emergency (ER) | payer MEDICARE ==
[~2020-03-18] VITALS: Ht 185.4 cm; Wt 107.2 kg
[~2020-03-18 14:35] MED LIST changes: +LEVO750T9 PO; +WARF7.5T3 PO; -WARF7.5T49 PO
--- NOTE | 2020-03-18 15:33 | Diagnostic Imaging Report ---
PROCEDURE: CT head and maxillofacial without contrast. TECHNIQUE: Multiple contiguous axial images were obtained through the head and facial bones without the use of intravenous contrast. Auto Exposure Controls were utilized during the CT exam to meet ALARA standards for radiation dose reduction. INDICATION: Fall with head and facial injuries. CT HEAD: Ventricles and sulci are diffusely prominent. No intracranial hemorrhage is identified. There is no abnormal mass effect or shift of midline structures. There is atherosclerotic calcification seen within internal carotid and vertebral arteries. IMPRESSION: No CT evidence of acute intracranial abnormality. Please see separately dictated facial CT report. Maxillofacial CT: There are mildly comminuted depressed bilateral nasal bone fractures. Prominent forehead scalp hematomas identified with an approximately 0.2 cm metallic foreign object just beneath the skin surface at the upper left medial periorbital region. The globes appear to be intact without evidence of retrobulbar hematoma or fluid collection. There is membrane thickening throughout bilateral ethmoid air cells with opacification of right maxillary sinus and air-fluid level within the left maxillary sinus. There is nondisplaced fracture involving the lateral inferior wall the left orbit with questionable nondisplaced fracture involving the floor of the right orbit. There is no evidence of extraocular muscle or orbital fat herniation. Temporomandibular joints are intact. There is opacification of left mastoid air cells. IMPRESSION: Mildly comminuted and depressed fractures of both nasal bones. There is a slightly displaced fracture involving the lateral wall of the left orbital wall near the floor with questionable nondisplaced fracture involving the inferior lateral right orbital wall. Forehead scalp hematoma is identified without evidence of ocular abnormality. Air-fluid level in the left maxillary sinus may represent hemosinus with mural thickening seen elsewhere in the paranasal sinuses and opacification of the left mastoid air cells which may be inflammatory in nature. Dictated by: Dictated on workstation # [id number]
--- NOTE | 2020-03-18 15:40 | ED Trauma-Multisystem ---
General Chief Complaint: Trauma-Non Activation Stated Complaint: FALL Nursing Triage Note: Patient presents to the ED after fall from ladder. Patient reports he fell off the 2nd rung of the ladder and hit face first into some jagged rocks. He has a small laceration across the bridge of his nose, as well brusing swelling to forehead, skin tear to right forearm, and abrasions to left knee/mg area. Source of Information: Patient History of Present Illness Date Seen by Provider: Mar 18, 2020 Time Seen by Provider: 14:40 Initial Comments Patient fell backwards off the ladder just prior to arrival. States he was standing on the second step and he fell backwards landing on his feet and falling onto his face and right side. Presents with skin tear to the right arm, multiple abrasions of his face and forehead. Complains of headache and otherwise denies any neck back or joint pain. Patient can ambulate and bear weight without any limitations. Location Injury Occurred: Home Allergies and Home Medications Allergies Coded Allergies: Penicillins (Verified Allergy, Unknown, 01/11/16) Sulfa (Sulfonamide Antibiotics) (Verified Allergy, Unknown, 01/11/16) Home Medications Bacitracin/Polymyxin B Sulfate 28.3 Gm Oint...g., 28.3 GM TP BID Prescribed by: USHA RÍOS on 03/18/20 154 Bicalutamide 50 Mg Tablet, 50 MG PO DAILY, (Reported) Carvedilol 6.25 Mg Tablet, 6.25 MG PO BID, (Reported) Docusate Sodium 100 Mg Capsule, 100 MG PO BID, (Reported) Fluoxetine HCl 20 Mg Capsule, 20 MG PO DAILY, (Reported) Hydrochlorothiazide 25 Mg Tablet, 25 MG PO DAILY, (Reported) Hydrocodone/Acetaminophen 1 Each Tablet, 1 EACH PO Q4H Prescribed by: USHA RÍOS on 03/18/20 1549 Levofloxacin 750 Mg Tablet, 750 MG PO DAILY Prescribed by: ANETTE CHACON on 11/22/19 1607 Lutein 40 Mg Capsule, 40 MG PO DAILY, (Reported) Multivitamins 1 Tab Tablet, 1 TAB PO DAILY, (Reported) [place]-3 Fatty Acids/Fish Oil 1 Each Capsule, 1 EACH PO DAILY, (Reported) Simvastatin 20 Mg Tab, 20 MG PO DAILY, (Reported) Vitamin E Acetate 400 Unit Capsule, 400 UNIT PO DAILY, (Reported) Warfarin Sodium 7.5 Mg Tablet, 7.5 MG PO M-, (Reported) Warfarin Sodium 5 Mg Tablet, 5 MG PO SAT & SUN, (Reported) Patient Home Medication List Home Medication List Reviewed: Yes Review of Systems Review of Systems Constitutional: no symptoms reported; No dizziness, No fever, No malaise, No weakness Eyes: No Symptoms Reported; Denies Blindness, Denies Blurred Vision, Denies Decreased Acuity, Denies Inflammation, Denies Pain, Denies Photophobia, Denies Tunnel Vision, Denies Vision Changes Ears: No Symptoms Reported Nose: See HPI, Epistaxis, Pain Mouth: No Symptoms Reported Throat: No Symptoms to Report Respiratory: no symptoms reported; No cough, No short of breath Cardiovascular: Denies Chest Pain, Denies Edema, Denies Lightheadedness Gastrointestinal: No abdominal pain, No nausea, No vomiting Musculoskeletal: see HPI; No back pain, No joint pain, No neck pain Skin: see HPI, other (abrasions of RUE and facial) Past Wtgdkng-Sukprv-Aitaey Hx Past Med/Social Hx: Reviewed Nursing Past Med/Soc Hx Patient Social History Alcohol Use: Denies Use Recreational Drug Use: No Smoking Status: Former Smoker Type Used: Cigarettes Former Smoker, Quit: Jun 26, 1995 2nd Hand Smoke Exposure: No Recent Foreign Travel: No Contact w/Someone Who Travel: No Recent Infectious Disease Expo: No Recent Hopitalizations: No Physical Abuse: No Sexual Abuse: No Mistreated: No Fear: No Immunizations Up To Date Date of Pneumonia Vaccine: Mar 28, 2011 Seasonal Allergies Seasonal Allergies: No Past Medical History Surgeries: Yes (SOFT PALLET REMOVED, STENTS IN HEART, AAA Repair) Abdominal, CABG, Coronary Stent, Pacemaker Respiratory: Yes (SLEEP APNEA, USES CPAP) Sleep Apnea Cardiac: Yes (CABG, "LOTS OF STENTS", PACEMAKER) Heart Attack, High Cholesterol, Hypertension Neurological: No Reproductive Disorders: No Sexually Transmitted Disease: No Genitourinary: No Gastrointestinal: No Musculoskeletal: Yes Arthritis Endocrine: No HEENT: No Cancer: Yes (Currently receiving treatment for prostate cancer) Prostate Did You Recieve Any Treatments: Yes What Type of Treatment Did You: Chemotherapy Depression Integumentary: No Blood Disorders: No Physical Exam Vital Signs Vital Signs - First Documented 03/18/20 03/18/20 14:48 16:25 Temp 36.3 Pulse 77 Resp 16 B/P (MAP) 128/79 (95) Pulse Ox 94 Height, Weight, BMI Height: 6'2.00" Weight: 230lbs. 0.0oz. 104.280358gd; 31.00 BMI Method: General Appearance: No Apparent Distress, WD/WN Head: Contusions (forehead and nose), Swelling, Tenderness (bridge of nose); No Holloway's Sign, No Flap, No Lacerations, No Raccoon Eyes Ears, Nose, Throat: Hearing Grossly Normal, No Dental Injury, Other (abrasions mid forehead and bridge of nose w gross depression of nasal bridge. Bleeding stopped. 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 There is a slightly displaced fracture involving the lateral wall of the left orbital wall near the floor with questionable nondisplaced fracture involving the inferior lateral right orbital wall. Forehead scalp hematoma is identified without evidence of ocular abnormality. Air-fluid level in the left maxillary sinus may represent hemosinus with mural thickening seen elsewhere in the paranasal sinuses and opacification of the left mastoid air cells which may be inflammatory in nature. Dictated on workstation # [id number] Dict: 03/18/20 1525 Trans: 03/18/20 1532 [facility] [id number] Interpreted by: ROD KING MD Electronically signed by: CT HEAD: Ventricles and sulci are diffusely prominent. No intracranial hemorrhage is identified. There is no abnormal mass effect or shift of midline structures. There is atherosclerotic calcification seen within internal carotid and vertebral arteries. IMPRESSION: No CT evidence of acute intracranial abnormality. Please see separately dictated facial CT report. Departure Impression Primary Impression: Multiple facial bone fractures Qualified Codes: S02.92XA - Unspecified fracture of facial bones, initial encounter for closed fracture Additional Impressions: Head contusion Qualified Codes: S00.93XA - Contusion of unspecified part of head, initial encounter Fall (on) (from) other stairs and steps, initial encounter Skin tear of right forearm without complication Qualified Codes: S51.811A - Laceration without foreign body of right forearm, initial encounter Disposition: 01 HOME, SELF-CARE Condition: Stable Departure-Patient Inst. Decision time for Depature: 15:45 Referrals: JUSTICE DRUMMOND MD (PCP/Family) Primary Care Physician Patient Instructions: Facial Fracture (DC), Wound Care (DC) Add. Discharge Instructions: An appointment has been scheduled for you with Dr Le (ENT Doctor) in [place].....for Monday @ 11:15 am Please call [phone] (tomorrow) to confirm appointment details and directions. All discharge instructions reviewed with patient and/or family. Voiced understanding. Scripts Hydrocodone/Acetaminophen (Hydrocodone-Acetamin 5-325 mg) 1 Each Tablet 1 EACH PO Q4H for Abdominal Pain, #20 TAB Prov: MARIANASTUSHA GIMENEZ DO 03/18/20 Bacitracin/Polymyxin B Sulfate (Polysporin Ointment) 28.3 Gm Oint...g. 28.3 GM TP BID, #1 TUBE Prov: VELMAVENSTINEUSHA DO 03/18/20 USHA RÍOS DO Mar 18, 2020 15:40
[2020-03-18] MEDS ORDERED: ACHD5005 PO (15:48)
[2020-03-18] MEDS ORDERED: BACI28.35 TP (15:48)
[2020-03-18 16:25] VITALS: BP 128/79
== END 2020-03-18 16:22 | disposition home or self-care (01) ==
LOC: EDUNIT# 14:35 → ER FS 14:36
DX: S02.92XA Unspecified fracture of facial bones, initial encounter for closed fracture (principal); S51.811A Laceration without foreign body of right forearm, initial encounter; S00.83XA Contusion of other part of head, initial encounter; S00.33XA Contusion of nose, initial encounter; I10 Essential (primary) hypertension; I25.2 Old myocardial infarction; E78.00 Pure hypercholesterolemia, unspecified; F32.9 Major depressive disorder, single episode, unspecified; Z95.1 Presence of aortocoronary bypass graft; Z95.5 Presence of coronary angioplasty implant and graft; Z88.0 Allergy status to penicillin; Z88.2 Allergy status to sulfonamides; Z85.46 Personal history of malignant neoplasm of prostate; Z79.01 Long term (current) use of anticoagulants; Z87.891 Personal history of nicotine dependence; W11.XXXA Fall on and from ladder, initial encounter
CPT/HCPCS: 70450; 70486

== ENCOUNTER 2020-04-05 15:15 | Emergency (ER) | payer MEDICARE ==
[~2020-04-05] VITALS: Ht 185.4 cm; Wt 107.2 kg
[~2020-04-05 15:15] MED LIST changes: +ACHD5005 PO; +BACI28.35 TP
[2020-04-05] MEDS ORDERED: ACETAMINOPHEN 500 MG TAB (TYLENOL) PO ONE (15:30)
--- NOTE | 2020-04-05 15:30 | ED Cardiac General ---
History of Present Illness General Stated Complaint: INFECTION Source: patient, EMS Exam Limitations: no limitations History of Present Illness Date Seen by Provider: Apr 05, 2020 Time Seen by Provider: 15:20 Initial Comments The patient is a pleasant 79-year-old male presents via EMS for evaluation of fever and a likely pacemaker infection. 2 weeks ago he had a pacemaker placed at [facility] in [place]. Then there is a subsequent infection and it was removed and replaced one week ago. Sometime between last night and this morning the patient noticed some redness to the left chest wall over the pacemaker as well as some discomfort and a fever and chills. He is noted to be febrile upon arrival. He is mentating clearly. He states that he would like to go back to [facility] in [place] or the procedure was recently performed. He is alert and oriented 4, calm, and appears to be in no distress this time. He denies any chest pain at this time Timing/Duration: 24 hours Severity: moderate Location: other (left chest wall redness over the pacemaker) NTG SL PAPER COATER: No ASA po PAPER COATER: No Associated Systoms: Fever/Chills, Malaise Allergies and Home Medications Allergies Coded Allergies: Penicillins (Verified Allergy, Unknown, 01/11/16) Sulfa (Sulfonamide Antibiotics) (Verified Allergy, Unknown, 01/11/16) Home Medications Bacitracin/Polymyxin B Sulfate 28.3 Gm Oint...g., 28.3 GM TP BID Prescribed by: USHA RÍOS on 03/18/20 1548 Bicalutamide 50 Mg Tablet, 50 MG PO DAILY, (Reported) Carvedilol 6.25 Mg Tablet, 6.25 MG PO BID, (Reported) Docusate Sodium 100 Mg Capsule, 100 MG PO BID, (Reported) Fluoxetine HCl 20 Mg Capsule, 20 MG PO DAILY, (Reported) Hydrochlorothiazide 25 Mg Tablet, 25 MG PO DAILY, (Reported) Hydrocodone/Acetaminophen 1 Each Tablet, 1 EACH PO Q4H Prescribed by: USHA RÍOS on 03/18/20 1549 Lutein 40 Mg Capsule, 40 MG PO DAILY, (Reported) Multivitamins 1 Tab Tablet, 1 TAB PO DAILY, (Reported) [place]-3 Fatty Acids/Fish Oil 1 Each Capsule, 1 EACH PO DAILY, (Reported) Simvastatin 20 Mg Tab, 20 MG PO DAILY, (Reported) Vitamin E Acetate 400 Unit Capsule, 400 UNIT PO DAILY, (Reported) Warfarin Sodium 7.5 Mg Tablet, 7.5 MG PO -, (Reported) Warfarin Sodium 5 Mg Tablet, 5 MG PO SAT & SUN, (Reported) Patient Home Medication List Home Medication List Reviewed: Yes Review of Systems Review of Systems Constitutional: chills, fever EENTM: No Symptoms Reported Respiratory: No Symptoms Reported Cardiovascular: Other (left chest wall redness and likely pacemaker infection) Gastrointestinal: No Symptoms Reported Genitourinary: No Symptoms Reported Musculoskeletal: no symptoms reported Skin: no symptoms reported Psychiatric/Neurological: No Symptoms Reported Endocrine: No Symptoms Reported Hematologic/Lymphatic: No Symptoms Reported All Other Systems Reviewed Negative Unless Noted: Yes Past Ednfqsg-Qzduqe-Zemayv Hx Past Med/Social Hx: Reviewed Nursing Past Med/Soc Hx Patient Social History Type Used: Cigarettes Former Smoker, Quit: Jun 26, 1995 2nd Hand Smoke Exposure: No Recent Hopitalizations: No Immunizations Up To Date Date of Pneumonia Vaccine: Mar 28, 2011 Seasonal Allergies Seasonal Allergies: No Past Medical History Surgeries: Yes (SOFT PALLET REMOVED, STENTS IN HEART, AAA Repair) Abdominal, CABG, Coronary Stent, Pacemaker Respiratory: Yes (SLEEP APNEA, USES CPAP) Sleep Apnea Cardiac: Yes (CABG, "LOTS OF STENTS", PACEMAKER) Heart Attack, High Cholesterol, Hypertension Neurological: No Reproductive Disorders: No Sexually Transmitted Disease: No Genitourinary: No Gastrointestinal: No Musculoskeletal: Yes Arthritis Endocrine: No HEENT: No Cancer: Yes (Currently receiving treatment for prostate cancer) Prostate Did You Recieve Any Treatments: Yes What Type of Treatment Did You: Chemotherapy Depression Integumentary: No Blood Disorders: No Physical Exam Vital Signs Vital Signs - First Documented 04/05/20 15:20 Temp 39.5 Pulse 74 Resp 20 B/P (MAP) 150/81 (104) Pulse Ox 94 O2 Delivery Nasal Cannula O2 Flow Rate 2.00 Capillary Refill : Height, Weight, BMI Height: 6'2.00" Weight: 230lbs. 0.0oz. 104.863676vi; 31.00 BMI Method: General Appearance: No Apparent Distress, WD/WN HEENT: TMs Normal, Pharynx Normal, Other (ecchymosis on face from recent fall off a ladder with facial injury) Neck: Full Range of Motion, Non Tender, Supple Respiratory: Lungs Clear, No Accessory Muscle Use, No Respiratory Distress Cardiovascular: Regular Rate, Rhythm, No Murmur, Normal Peripheral Pulses Gastrointestinal: Normal Bowel Sounds, Non Tender, Soft Extremity: Normal Capillary Refill, Non Tender, No Calf Tenderness, Pedal Edema (2+ pitting) Neurologic/Psychiatric: Alert, Oriented x3, No Motor/Sensory Deficits, Normal Mood/Affect Skin: Normal Color, Warm/Dry Focused Exam Lactate Level 04/05/20 15:25: Lactic Acid Level 1.22 Lactic Acid Level Laboratory Tests Test 04/05/20 15:25 Lactic Acid Level 1.22 MMOL/L (0.50-2.00) Progress/Results/Core Measures Results/Orders Lab Results Laboratory Tests Test 04/05/20 15:25 04/05/20 15:45 Range/Units White Blood Count 11.0 4.3-11.0 10^3/uL Red Blood Count 3.52 L 4.35-5.85 10^6/uL Hemoglobin 10.9 L 13.3-17.7 G/DL Hematocrit 33 L 40-54 % Mean Corpuscular Volume 93 80-99 FL Mean Corpuscular Hemoglobin 31 25-34 PG Mean Corpuscular Hemoglobin Concent 33 32-36 G/DL Red Cell Distribution Width 14.9 H 10.0-14.5 % Platelet Count 140 130-400 10^3/uL Mean Platelet Volume 9.2 7.4-10.4 FL Immature Granulocyte % (Auto) 0 % Neutrophils (%) (Auto) 87 H 42-75 % Lymphocytes (%) (Auto) 6 L 12-44 % Monocytes (%) (Auto) 6 0-12 % Eosinophils (%) (Auto) 0 0-10 % Basophils (%) (Auto) 0 0-10 % Neutrophils # (Auto) 9.6 H 1.8-7.8 X 10^3 Lymphocytes # (Auto) 0.7 L 1.0-4.0 X 10^3 Monocytes # (Auto) 0.7 0.0-1.0 X 10^3 Eosinophils # (Auto) 0.0 0.0-0.3 10^3/uL Basophils # (Auto) 0.0 0.0-0.1 10^3/uL Immature Granulocyte # (Auto) 0.0 0.0-0.1 10^3/uL Neutrophils % (Manual) 77 % Lymphocytes % (Manual) 7 % Monocytes % (Manual) 7 % Eosinophils % (Manual) 0 % Basophils % (Manual) 0 % Band Neutrophils 9 % Hypochromasia 1+ Macrocytosis 1+ Prothrombin Time 27.1 H 12.2-14.7 SEC INR Comment 2.5 H 0.8-1.4 Activated Partial Thromboplast Time 38 H 24-35 SEC Sodium Level 137 135-145 MMOL/L Potassium Level 4.4 3.6-5.0 MMOL/L Chloride Level 101 98-107 MMOL/L Carbon Dioxide Level 24 21-32 MMOL/L Anion Gap 12 5-14 MMOL/L Blood Urea Nitrogen 19 H 7-18 MG/DL Creatinine 0.81 0.60-1.30 MG/DL Estimat Glomerular Filtration Rate > 60 BUN/Creatinine Ratio 23 Glucose Level 144 H 70-105 MG/DL Lactic Acid Level 1.22 0.50-2.00 MMOL/L Calcium Level 8.9 8.5-10.1 MG/DL Corrected Calcium 9.1 8.5-10.1 MG/DL Total Bilirubin 0.5 0.1-1.0 MG/DL Aspartate Amino Transf (AST/SGOT) 24 5-34 U/L Alanine Aminotransferase (ALT/SGPT) 15 0-55 U/L Alkaline Phosphatase 221 H 40-136 U/L Troponin I < 0.30 <0.30 NG/ML Pro-B-Type Natriuretic Peptide 1989.0 H <75.0 PG/ML Total Protein 6.9 6.4-8.2 GM/DL Albumin 3.7 3.2-4.5 GM/DL Urine Color YELLOW Urine Clarity CLEAR Urine pH 7.5 5-9 Urine Specific Pill[place] 1.020 1.016-1.022 Urine Protein NEGATIVE NEGATIVE Urine Glucose (UA) NEGATIVE NEGATIVE Urine Ketones NEGATIVE NEGATIVE Urine Nitrite NEGATIVE NEGATIVE Urine Bilirubin NEGATIVE NEGATIVE Urine Urobilinogen 0.2 < = 1.0 MG/DL Urine Leukocyte Esterase NEGATIVE NEGATIVE Urine RBC (Auto) 2+ H NEGATIVE Urine RBC 50-100 H /HPF Urine WBC 0-2 /HPF Urine Squamous Epithelial Cells 0-2 /HPF Urine Crystals NONE /LPF Urine Bacteria NEGATIVE /HPF Urine Casts NONE /LPF Urine Mucus NEGATIVE /LPF Urine Culture Indicated NO My Orders Orders - ANETTE CHACON DO Cbc With Automated Diff (04/05/20 15:17) Comprehensive Metabolic Panel (04/05/20 15:17) Blood Culture (04/05/20 15:17) Chest 1 View Ap/Pa Only (04/05/20 15:17) Lactic Acid Analyzer (04/05/20 15:17) Ed Iv/Invasive Line Start (04/05/20 15:17) Ekg Tracing (04/05/20 15:17) Continuous Ekg Monitoring (04/05/20 15:17) Acetaminophen Tablet (Tylenol Tablet) (04/05/20 15:30) Probnp Fs (04/05/20 15:23) Troponin I Fs (04/05/20 15:23) Protime With Inr (04/05/20 15:35) Partial Thromboplastin Time (04/05/20 15:35) Ua Culture If Indicated (04/05/20 15:52) Manual Differential (04/05/20 15:25) Clindamycin 600 Mg/50 Ml Ivpb (Cleocin P (04/05/20 16:30) Ceftriaxone For Iv Use (Rocephin For I (04/05/20 16:30) Medications Given in ED Current Medications Medications Dose Ordered Sig/Lilliam Route Start Time Stop Time Status Last Admin Dose Admin Acetaminophen 1,000 mg ONCE ONCE PO 04/05/20 15:30 04/05/20 15:31 DC 04/05/20 15:37 1,000 MG Ceftriaxone Sodium 1000 mg/ Sterile Water 10 ml @ 200 mls/hr ONCE ONCE IV 04/05/20 16:30 04/05/20 16:32 DC 04/05/20 16:44 200 MLS/HR Clindamycin Phosphate/Dextrose 50 ml @ 100 mls/hr ONCE ONCE IV 04/05/20 16:30 04/05/20 16:59 DC 04/05/20 16:49 100 MLS/HR Vital Signs/I&O 04/05/20 04/05/20 04/05/20 15:20 15:37 16:37 Temp 39.5 39.5 38.6 Pulse 74 Resp 20 B/P (MAP) 150/81 (104) Pulse Ox 94 O2 Delivery Nasal Cannula O2 Flow Rate 2.00 Progress Progress Note : Progress Note @1630 - patient prefers to be transferred to [facility] as this is where he had his pacemaker placed and then subsequently replaced. [facility] was called and they state that they're currently on Med/Surg an ICU diversion but state that for continuity of care they would like to accept this patient. The learning center coordinator spoke with the ER physician who wanted to first speak with the warehouse distribution specialist and the physician asst before accepting an ER to ER transfer given the limited bed availability. @1651 - [facility] calls back to state they fully intend to accept the transfer of this patient but need to find a bed for him. @1716 - Dr. Casillas at [facility] accepts the transfer at this time. Comment @1520 - Paced rhythm, rate of 73, left axis deviation is present, no acute ischemic findings noted, no STEMI, reviewed and interpreted by myself Diagnostic Imaging Diagonstic Imaging: Xray Comments NAME: ERIC FIGUEROA [facility] REC#: [id number] PT STATUS: REG ER : 1940 PHYSICIAN: ANETTE CHACON DO ADMIT DATE: 04/05/20/ER FS Draft Date of Exam:04/05/20 CHEST 1 VIEW AP/PA ONLY INDICATION: Pacemaker, infection, fever. COMPARISON: 11/22/2019. TECHNIQUE: Single radiograph of the chest dated April 05, 2020. FINDINGS: Postsurgical changes of median sternotomy are again noted. Pacer device is again seen with the battery pack overlying the left chest. Stable elevation of the left hemidiaphragm. The cardiac silhouette remains enlarged, though stable. No significant pulmonary vascular congestion. Small left basilar pleural-parenchymal opacity is present. This appears slightly improved though persistent when compared to the prior exam. The right lung remains clear of focal pulmonary opacity. No significant right pleural effusion. No pneumothorax. No acute osseous abnormality. IMPRESSION: 1. Slightly improved though persistent small left basilar pleural-parenchymal opacity. This is felt to relate to a combination of pleural fluid with adjacent atelectasis and/or infiltrate. 2. Cardiomegaly without overt congestive heart failure. Dictated on workstation # [id number] Dict: 04/05/20 1607 Trans: 04/05/20 1647 [facility] [id number] Interpreted by: WESLEY REYNA MD Electronically signed by: Departure Impression Primary Impression: Infected pacemaker Additional Impression: Sepsis Disposition: 02 XFER SHT-TRM HOSP Condition: Stable Transfer Transfer Reason: Exceeds level of care Time Spoke to Accepting Phy: 17:[address] Casillas at [facility] accepts the transfer at this time Transfer Time: 17:16 Transfer Facility: [facility] Method of Transfer: EMS Departure-Patient Inst. Referrals: JUSTICE DRUMMOND MD (PCP/Family) Primary Care Physician ANETTE CHACON DO Apr 05, 2020 15:30
--- NOTE | 2020-04-05 15:37 | NUR ---
Tylenol 1 GM p.o. given for temperature 39.5. Pt needing to void he reports.
--- NOTE | 2020-04-05 15:40 | NUR ---
Continue to assist pt, too weak to sit up very long and puts head down. Pt requests to get jeans off. Pt was undressed by nurse staff industrial and placed in gown. Assistance of add'l staff to get pt back into bed lying down and pulled up. RN assist with placement of urinal.
--- NOTE | 2020-04-05 15:45 | NUR ---
Urine obtained and UA order received. Pt getting a PCXR at this time.
[2020-04-05] MEDS ORDERED: METO50TA15 (16:07)
[2020-04-05] MEDS ORDERED: WRF5T (16:07)
[2020-04-05] MEDS ORDERED: TIOT18CA2 (16:07)
[2020-04-05] MEDS ORDERED: AMLO5TAB9 (16:07)
[2020-04-05 16:10] LABS: ALANINE AMINOTRANSFERASE 15 U/L (0-55); ALBUMIN 3.7 GM/DL (3.2-4.5); ALKALINE PHOSPHATASE 221 U/L (40-136); BILIRUBIN,TOTAL 0.5 MG/DL (0.1-1.0); BUN/CREATININE RATIO 23; CALCIUM 8.9 MG/DL (8.5-10.1); CARBON DIOXIDE 24 MMOL/L (21-32); CHLORIDE 101 MMOL/L (98-107); CREATININE SERUM 0.81 MG/DL (0.60-1.30); GFR ESTIMATED > 60; GLUCOSE 144 MG/DL (70-105); POTASSIUM 4.4 MMOL/L (3.6-5.0); SODIUM 137 MMOL/L (135-145); TOTAL PROTEIN 6.9 GM/DL (6.4-8.2)
[2020-04-05 16:11] LABS: INR 2.5 (0.8-1.4); PROTHROMBIN TIME PATIENT 27.1 SEC (12.2-14.7)
[2020-04-05 16:12] LABS: BASOPHILS % (AUTO) 0 % (0-10); EOSINOPHILS % (AUTO) 0 % (0-10); HEMATOCRIT 33 % (40-54); HEMOGLOBIN 10.9 G/DL (13.3-17.7); LYMPHOCYTES % (AUTO) 6 % (12-44); MEAN CORPUSCULAR HEMOGLOBIN 31 PG (25-34); MEAN CORPUSCULAR HGB CONC 33 G/DL (32-36); MEAN CORPUSCULAR VOLUME 93 FL (80-99); MEAN PLATELET VOLUME 9.2 FL (7.4-10.4); MONOCYTES % (AUTO) 6 % (0-12); NEUTROPHILS % (AUTO) 87 % (42-75); PLATELET COUNT 140 10^3/uL (130-400)
[2020-04-05 16:13] LABS: LYMPHOCYTES # (AUTO) 0.7 X 10^3 (1.0-4.0); MONOCYTES # (AUTO) 0.7 X 10^3 (0.0-1.0); NEUTROPHILS # (AUTO) 9.6 X 10^3 (1.8-7.8)
[2020-04-05 16:17] LABS: BACTERIA,URINE NEGATIVE /HPF; BILIRUBIN,URINE NEGATIVE (NEGATIVE); CLARITY,URINE CLEAR; COLOR,URINE YELLOW; GLUCOSE, URINE (UA) NEGATIVE (NEGATIVE); KETONES,URINE NEGATIVE (NEGATIVE); LEUKOCYTE ESTERASE ,URINE NEGATIVE (NEGATIVE); NITRITE,URINE NEGATIVE (NEGATIVE); PH,URINE 7.5 (5-9); PROTEIN,URINE NEGATIVE (NEGATIVE); RBC,URINE 50-100 /HPF; SQUAMOUS EPITHELIAL CELL,UR 0-2 /HPF; WBC,URINE 0-2 /HPF
[2020-04-05 16:27] LABS: BAND NEUTROPHILS 9 %; BASOPHILS % (MANUAL) 0 %; EOSINOPHILS % (MANUAL) 0 %; HYPOCHROMASIA 1+; LYMPHOCYTES % (MANUAL) 7 %; MONOCYTES % (MANUAL) 7 %; NEUTROPHILS % (MANUAL) 77 %
[2020-04-05] MEDS ORDERED: cefTRIAXone FOR IV USE 1,000 MG in WATER (STERILE) FOR INJECTION 10 ML IV ONE (16:30)
[2020-04-05] MEDS ORDERED: CLINDAMYCIN 600 MG/50 ML IVPB 50 ML IV ONE (16:30)
--- NOTE | 2020-04-05 16:30 | NUR ---
Plan for need of transfer for admit back to [facility]. The hospital has no beds (diversion r/t census) but front line supervisor is discussing this case with hospitalist and cardiology and they will return a call if an accomodation can be made to create a bed for this pt.
--- NOTE | 2020-04-05 16:47 | Diagnostic Imaging Report ---
INDICATION: Pacemaker, infection, fever. COMPARISON: 11/22/2019. TECHNIQUE: Single radiograph of the chest dated April 05, 2020. FINDINGS: Postsurgical changes of median sternotomy are again noted. Pacer device is again seen with the battery pack overlying the left chest. Stable elevation of the left hemidiaphragm. The cardiac silhouette remains enlarged, though stable. No significant pulmonary vascular congestion. Small left basilar pleural-parenchymal opacity is present. This appears slightly improved though persistent when compared to the prior exam. The right lung remains clear of focal pulmonary opacity. No significant right pleural effusion. No pneumothorax. No acute osseous abnormality. IMPRESSION: 1. Slightly improved though persistent small left basilar pleural-parenchymal opacity. This is felt to relate to a combination of pleural fluid with adjacent atelectasis and/or infiltrate. 2. Cardiomegaly without overt congestive heart failure. Dictated by: Dictated on workstation # [id number]
--- NOTE | 2020-04-05 17:00 | NUR ---
Spoke with patient as possibility of no bed at [facility] we would need second choice location. Pt reports to consult with or daughter (dgt is a Nurse Practioner).
--- NOTE | 2020-04-05 17:25 | NUR ---
Call to Dgt Aileen Blandon to discuss work up and the just accepted plan to [facility] as they were at capacity. We are unable to reach the as unable "to dial as listed".
--- NOTE | 2020-04-05 17:30 | NUR ---
Call from [facility] ER with in hysteria that patient has "crashed" or "worse" as they expected him to come to [place] from the house and he is not found in the system in [facility].
--- NOTE | 2020-04-05 17:32 | NUR ---
Maritza ANDRE called Daughter Aileen to please go in toward ER as her mother is being comforted by staff as overwhelmed that this patient was not directly taken to the ER in [place].
--- NOTE | 2020-04-05 17:40 | NUR ---
[facility] calling us as [facility] calling them to ask what is going on with the patient transfer to them. Explained some confusion in communication apparently they told EMS at house to drive to [facility] and apparently they were not aware he was coming locally to [facility].
[2020-04-05 17:45] VITALS: BP 110/53
--- NOTE | 2020-04-05 17:55 | NUR ---
Attempt to call [facility] report: called number and reached ER, transferred to despatching and receiving clerk 7th floor, transferred to nurse Jose Garcia reports add'l phone number to call Mary RN [phone]. Rang phone for Mary and another staff member reports she is discharging patient and and will call us back.
--- NOTE | 2020-04-05 18:30 | NUR ---
Return call to Mary ANDRE and report given. Expecting approx arrival 1900, left 184. and dgt are already in [place] and were around the ER earlier trying to get a patient update.
== END 2020-04-05 17:45 ==
LOC: EDUNIT# 15:15 → ER FS 15:16
DX: T82.6XXA Infection and inflammatory reaction due to cardiac valve prosthesis, initial encounter (principal); A41.9 Sepsis, unspecified organism; E78.00 Pure hypercholesterolemia, unspecified; I10 Essential (primary) hypertension; I25.2 Old myocardial infarction; F32.9 Major depressive disorder, single episode, unspecified; Z85.46 Personal history of malignant neoplasm of prostate; Z95.5 Presence of coronary angioplasty implant and graft; Z95.1 Presence of aortocoronary bypass graft; Z95.0 Presence of cardiac pacemaker; Z87.891 Personal history of nicotine dependence; Z88.0 Allergy status to penicillin; Z88.2 Allergy status to sulfonamides; Z79.01 Long term (current) use of anticoagulants
CPT/HCPCS: 36415; 71045; 80053; 81000; 83605; 83880; 84484; 85007; 85027; 85610; 85730; 87040; 93005

== ENCOUNTER → 2020-04-27 | Outpatient (CLI) | payer MEDICARE ==
[~2020-04-27] MED LIST changes: +AMLO-250; +METO50TA15; +TIOT18CA2; +WRF5T
[2020-04-27 19:08] LABS: INR 1.6 (0.8-1.4); PROTHROMBIN TIME PATIENT 19.6 SEC (12.2-14.7)
[2020-04-27 19:09] LABS: ALANINE AMINOTRANSFERASE 5 U/L (0-55); ALBUMIN 3.7 GM/DL (3.2-4.5); ALKALINE PHOSPHATASE 157 U/L (40-136); BILIRUBIN,TOTAL 0.2 MG/DL (0.1-1.0); BUN/CREATININE RATIO 25; CALCIUM 9.1 MG/DL (8.5-10.1); CARBON DIOXIDE 26 MMOL/L (21-32); CHLORIDE 100 MMOL/L (98-107); CREATININE SERUM 0.71 MG/DL (0.60-1.30); GFR ESTIMATED > 60; GLUCOSE 98 MG/DL (70-105); HEMOGLOBIN 9.6 G/DL (13.3-17.7); MEAN CORPUSCULAR HEMOGLOBIN 31 PG (25-34); POTASSIUM 4.5 MMOL/L (3.6-5.0); SODIUM 136 MMOL/L (135-145); TOTAL PROTEIN 6.5 GM/DL (6.4-8.2); WHITE BLOOD COUNT 4.9 10^3/uL (4.3-11.0)
[2020-04-27 19:10] LABS: BASOPHILS % (AUTO) 0 % (0-10); EOSINOPHILS # (AUTO) 0.3 10^3/uL (0.0-0.3); EOSINOPHILS % (AUTO) 5 % (0-10); HEMATOCRIT 30 % (40-54); LYMPHOCYTES # (AUTO) 1.1 X 10^3 (1.0-4.0); LYMPHOCYTES % (AUTO) 22 % (12-44); MEAN CORPUSCULAR HGB CONC 32 G/DL (32-36); MEAN CORPUSCULAR VOLUME 95 FL (80-99); MEAN PLATELET VOLUME 9.6 FL (7.4-10.4); MONOCYTES # (AUTO) 0.4 X 10^3 (0.0-1.0); MONOCYTES % (AUTO) 8 % (0-12); NEUTROPHILS # (AUTO) 3.1 X 10^3 (1.8-7.8); NEUTROPHILS % (AUTO) 64 % (42-75); PLATELET COUNT 158 10^3/uL (130-400)
== END ==
LOC: LAB FS 16:56
PROVIDERS: ATTEND Family Medicine
DX: I10 Essential (primary) hypertension (principal); T82.7XXA Infection and inflammatory reaction due to other cardiac and vascular devices, implants and grafts, initial encounter; B95.61 Methicillin susceptible Staphylococcus aureus infection as the cause of diseases classified elsewhere; Z79.2 Long term (current) use of antibiotics
CPT/HCPCS: 36415; 80053; 85025; 85610

== ENCOUNTER → 2020-04-30 | Outpatient (CLI) | payer MEDICARE ==
[2020-04-30 16:36] LABS: INR 1.9 (0.8-1.4); PROTHROMBIN TIME PATIENT 22.2 SEC (12.2-14.7)
== END ==
LOC: LAB FS 15:34
PROVIDERS: ATTEND Family Medicine
DX: Z79.01 Long term (current) use of anticoagulants (principal)
CPT/HCPCS: 36415; 85610; 85730

== ENCOUNTER → 2020-05-04 | Outpatient (CLI) | payer MEDICARE ==
[2020-05-04 18:28] LABS: CHLORIDE 103 MMOL/L (98-107); POTASSIUM 4.3 MMOL/L (3.6-5.0); SODIUM 140 MMOL/L (135-145)
[2020-05-04 18:29] LABS: ALANINE AMINOTRANSFERASE < 5 U/L (0-55); ALBUMIN 3.6 GM/DL (3.2-4.5); ALKALINE PHOSPHATASE 168 U/L (40-136); BILIRUBIN,TOTAL < 0.2 MG/DL (0.1-1.0); BUN/CREATININE RATIO 26; CALCIUM 8.9 MG/DL (8.5-10.1); CARBON DIOXIDE 28 MMOL/L (21-32); CREATININE SERUM 0.72 MG/DL (0.60-1.30); GFR ESTIMATED > 60; GLUCOSE 108 MG/DL (70-105); TOTAL PROTEIN 6.1 GM/DL (6.4-8.2)
[2020-05-04 18:30] LABS: HEMATOCRIT 30 % (40-54); HEMOGLOBIN 9.5 G/DL (13.3-17.7); MEAN CORPUSCULAR HEMOGLOBIN 30 PG (25-34); MEAN CORPUSCULAR HGB CONC 32 G/DL (32-36); MEAN CORPUSCULAR VOLUME 95 FL (80-99); PLATELET COUNT 119 10^3/uL (130-400); WHITE BLOOD COUNT 4.9 10^3/uL (4.3-11.0)
[2020-05-04 18:31] LABS: BASOPHILS % (AUTO) 1 % (0-10); EOSINOPHILS % (AUTO) 7 % (0-10); LYMPHOCYTES # (AUTO) 1.2 X 10^3 (1.0-4.0); LYMPHOCYTES % (AUTO) 25 % (12-44); MEAN PLATELET VOLUME 9.1 FL (7.4-10.4); MONOCYTES % (AUTO) 12 % (0-12); NEUTROPHILS # (AUTO) 2.7 X 10^3 (1.8-7.8); NEUTROPHILS % (AUTO) 56 % (42-75)
[2020-05-04 18:32] LABS: BAND NEUTROPHILS 0 %; BASOPHILS % (MANUAL) 2 %; EOSINOPHILS # (AUTO) 0.3 10^3/uL (0.0-0.3); EOSINOPHILS % (MANUAL) 4 %; LYMPHOCYTES % (MANUAL) 27 %; MONOCYTES # (AUTO) 0.6 X 10^3 (0.0-1.0); MONOCYTES % (MANUAL) 6 %; NEUTROPHILS % (MANUAL) 61 %
== END ==
LOC: LAB FS 16:29
DX: T82.7XXA Infection and inflammatory reaction due to other cardiac and vascular devices, implants and grafts, initial encounter (principal)
CPT/HCPCS: 36415; 80053; 85007; 85027

== ENCOUNTER → 2020-05-06 | Outpatient (CLI) | payer MEDICARE ==
[2020-05-06 18:22] LABS: INR 2.3 (0.8-1.4); PROTHROMBIN TIME PATIENT 25.3 SEC (12.2-14.7)
== END ==
LOC: LAB FS 17:46
PROVIDERS: ATTEND Family Medicine
DX: T82.7XXA Infection and inflammatory reaction due to other cardiac and vascular devices, implants and grafts, initial encounter (principal); Z79.01 Long term (current) use of anticoagulants
CPT/HCPCS: 36415; 85610; 85730

== ENCOUNTER → 2020-05-14 | Outpatient (CLI) | payer MEDICARE | LOC: WOUNDCARE 13:03 | PROVIDERS: ATTEND Surgery | DX: I96 Gangrene, not elsewhere classified (principal); I49.9 Cardiac arrhythmia, unspecified; L98.492 Non-pressure chronic ulcer of skin of other sites with fat layer exposed; T81.31XA Disruption of external operation (surgical) wound, not elsewhere classified, initial encounter | CPT/HCPCS: 11042; A6260; G0463 ==

== ENCOUNTER → 2020-05-20 | Outpatient (CLI) | payer MEDICARE | LOC: WOUNDCARE 12:53 | PROVIDERS: ATTEND Surgery | DX: L98.492 Non-pressure chronic ulcer of skin of other sites with fat layer exposed (principal); T81.31XA Disruption of external operation (surgical) wound, not elsewhere classified, initial encounter; I49.9 Cardiac arrhythmia, unspecified; I96 Gangrene, not elsewhere classified | CPT/HCPCS: 11042; G0463 ==

== ENCOUNTER → 2020-05-25 | Outpatient (CLI) | payer MEDICARE ==
[2020-05-25 19:14] LABS: INR 1.5 (0.8-1.4); PROTHROMBIN TIME PATIENT 18.6 SEC (12.2-14.7)
== END ==
LOC: LAB FS 18:53
PROVIDERS: ATTEND Family Medicine
DX: I48.0 Paroxysmal atrial fibrillation (principal); Z79.01 Long term (current) use of anticoagulants
CPT/HCPCS: 36415; 85610

== ENCOUNTER → 2020-05-27 | Outpatient (CLI) | payer MEDICARE | LOC: WOUNDCARE 14:12 | PROVIDERS: ATTEND Surgery | DX: L98.492 Non-pressure chronic ulcer of skin of other sites with fat layer exposed (principal); T81.31XA Disruption of external operation (surgical) wound, not elsewhere classified, initial encounter; I49.9 Cardiac arrhythmia, unspecified | CPT/HCPCS: 99212 ==

== ENCOUNTER → 2020-08-28 | Outpatient (CLI) | payer MEDICARE ==
[~2020-08-28] MED LIST changes: +LEUPROLIDE 45 MG ELIGARD SQ SCH
[2020-08-28 13:12] LABS: BASOPHILS % (AUTO) 1 % (0-10); EOSINOPHILS # (AUTO) 0.2 10^3/uL (0.0-0.3); EOSINOPHILS % (AUTO) 4 % (0-10); HEMATOCRIT 37 % (40-54); HEMOGLOBIN 12.2 g/dL (13.3-17.7); LYMPHOCYTES # (AUTO) 1.4 10^3/uL (1.0-4.0); LYMPHOCYTES % (AUTO) 24 % (12-44); MEAN CORPUSCULAR HEMOGLOBIN 31 pg (25-34); MEAN CORPUSCULAR HGB CONC 33 g/dL (32-36); MEAN CORPUSCULAR VOLUME 94 fL (80-99); MEAN PLATELET VOLUME 8.6 fL (9.0-12.2); MONOCYTES # (AUTO) 0.6 10^3/uL (0.0-1.0); MONOCYTES % (AUTO) 10 % (0-12); NEUTROPHILS # (AUTO) 3.5 10^3/uL (1.8-7.8); NEUTROPHILS % (AUTO) 61 % (42-75); PLATELET COUNT 111 10^3/uL (130-400); WHITE BLOOD COUNT 5.7 10^3/uL (4.3-11.0)
[2020-08-28 13:32] LABS: ALANINE AMINOTRANSFERASE 15 U/L (0-55); ALBUMIN 3.5 GM/DL (3.2-4.5); ALKALINE PHOSPHATASE 242 U/L (40-136); BILIRUBIN,TOTAL 0.3 MG/DL (0.1-1.0); BUN/CREATININE RATIO 25; CALCIUM 8.8 MG/DL (8.5-10.1); CARBON DIOXIDE 27 MMOL/L (21-32); CHLORIDE 104 MMOL/L (98-107); CREATININE SERUM 0.92 MG/DL (0.60-1.30); GFR ESTIMATED > 60; GLUCOSE 91 MG/DL (70-105); POTASSIUM 4.4 MMOL/L (3.6-5.0); SODIUM 141 MMOL/L (135-145); TOTAL PROTEIN 6.9 GM/DL (6.4-8.2)
== END ==
LOC: ONC 12:56
PROVIDERS: ATTEND Internal Medicine Hematology & Oncology
DX: Z51.11 Encounter for antineoplastic chemotherapy (principal); C61 Malignant neoplasm of prostate; C77.9 Secondary and unspecified malignant neoplasm of lymph node, unspecified; D64.9 Anemia, unspecified; I11.9 Hypertensive heart disease without heart failure; I95.1 Orthostatic hypotension; Z92.3 Personal history of irradiation; Z79.818 Long term (current) use of other agents affecting estrogen receptors and estrogen levels
CPT/HCPCS: 80053; 84153; 85025; 96402; G0463; 99213

== ENCOUNTER → 2020-09-09 | Outpatient (CLI) | payer MEDICARE ==
[~2020-09-09] MED LIST changes: +CATHETER FLUSH 10 ML SYR IV PRN; +HOLD METFORMIN - RECEIVED CONTRAST 20 ML VIAL IV SCH; +IOHEXOL 350 MG/ML 100 ML (OMNIPAQUE 350) VIAL IV ONE; -LEUPROLIDE 45 MG ELIGARD SQ SCH; +NS 100 ML (IVPB) BAG IV ONE
--- NOTE | 2020-09-09 10:16 | Diagnostic Imaging Report ---
PROCEDURE: CT angiography of the chest with contrast. TECHNIQUE: Multiple contiguous axial images were obtained through the chest after uneventful bolus administration of intravenous contrast. 3D reconstructed CTA MIP acquisitions were also performed. Auto Exposure Controls were utilized during the CT exam to meet ALARA standards for radiation dose reduction. INDICATION: Dyspnea with elevated D-dimer in patient with prostate cancer. FINDINGS: There is good opacification of pulmonary arteries without intraluminal filling defect identified. Note is made of dependent atelectasis and/or pneumonitis in the lower lobes, bilaterally. There is mild thoracic aortic ectasia and atherosclerotic calcification, however no definite aneurysm or dissection is identified. There is no significant pleural or pericardial fluid. There has been median sternotomy. Coronary artery calcifications are noted. IMPRESSION: 1. Thoracic aortic ectasia and atherosclerosis without evidence of pulmonary embolism. 2. There is atelectasis and/or pneumonitis in the lower lobes of both lungs. Dictated by: Dictated on workstation # [id number]
== END ==
LOC: RAD FS 08:59
PROVIDERS: ATTEND Family Medicine
DX: R79.1 Abnormal coagulation profile (principal); I77.810 Thoracic aortic ectasia; I70.0 Atherosclerosis of aorta; C61 Malignant neoplasm of prostate
CPT/HCPCS: 71275

== ENCOUNTER → 2020-10-26 | Outpatient (CLI) | payer MEDICARE ==
[~2020-10-26] MED LIST changes: -CATHETER FLUSH 10 ML SYR IV PRN; -HOLD METFORMIN - RECEIVED CONTRAST 20 ML VIAL IV SCH; -IOHEXOL 350 MG/ML 100 ML (OMNIPAQUE 350) VIAL IV ONE; -NS 100 ML (IVPB) BAG IV ONE
[2020-10-26 10:32] LABS: ABG BASE EXCESS 4.2 MMOL/L (-2.5-2.5); ABG OXYGEN SATURATION 96 % (94-100); ABG PCO2 42 MMHG (35-45); ABG PH 7.44 (7.37-7.43); ABG PO2 69 MMHG (79-93); ALLENS TEST YES-POS; INSPIRED O2 2 L; PATIENT TEMP 94.6; VENTILATOR NO
--- NOTE | 2020-10-26 10:55 | Diagnostic Imaging Report ---
EXAMINATION: PA and lateral chest at 9:59 AM. INDICATION: Dyspnea. FINDINGS: The cardiomegaly, sternotomy wires, and surgical clips seen on the prior exam of 04/05/2020 are again visualized. The heart does seem less prominent than on the prior study. The atelectasis, infiltrate, and fluid involving the left lung base noted previously have also diminished; however, there still appears to be a small amount of atelectasis/infiltrate and fluid in each lower lobe. The upper lungs are generally clear. The mediastinum is not widened. The osseous structures are intact. In the interval since the prior exam, the left-sided pacemaker has been removed and a new right-sided pacemaker has been inserted. The pacer leads seem to be in good position. There is no sign of a pneumothorax. IMPRESSION: 1. The appearance of the chest has improved since the prior exam as the heart has decreased in size and both lung bases do seem better aerated; however, there is still a small amount of atelectasis/infiltrate and fluid bilaterally. 2. There has been interval exchange of pacemakers as described above. Dictated by: Dictated on workstation # [id number]
== END ==
LOC: RAD 09:43
PROVIDERS: ATTEND Internal Medicine Critical Care Medicine
DX: R06.00 Dyspnea, unspecified (principal); Z98.890 Other specified postprocedural states; Z95.0 Presence of cardiac pacemaker
CPT/HCPCS: 36600; 71046; 82805

== ENCOUNTER → 2020-11-09 | Outpatient (CLI) | payer MEDICARE ==
[~2020-11-09] MED LIST changes: +CATHETER FLUSH 10 ML SYR IV PRN; +HOLD METFORMIN - RECEIVED CONTRAST 20 ML VIAL IV SCH; +IOHEXOL 350 MG/ML 100 ML (OMNIPAQUE 350) VIAL IV ONE; +NS 100 ML (IVPB) BAG IV ONE; +RT-ALBUTEROL SULF 2.5 MG/3 ML PRE-MIX VIAL INH ONE
[2020-11-09 12:07] LABS: BUN/CREATININE RATIO 19; CREATININE SERUM 1.07 MG/DL (0.60-1.30); GFR ESTIMATED > 60
--- NOTE | 2020-11-09 15:49 | Diagnostic Imaging Report ---
EXAMINATION: CT chest with intravenous contrast. TECHNIQUE: Multiple contiguous axial images were obtained through the chest after the uneventful administration of intravenous contrast. All CT scans use one or more of the following dose optimizing techniques: automated exposure control, MA and/or KvP adjustment based on patient size and exam type or iterative reconstruction. HISTORY: Dyspnea. History of prostate cancer. COMPARISON: 09/09/2020. FINDINGS: The heart size is enlarged. No pericardial effusion is present. Right pectoral pacemaker is in place. There is calcified aortic and coronary atherosclerotic plaque. Ectasia of the ascending thoracic aorta is again noted. There is also focal ectasia in the descending thoracic aorta at approximately the T6 level. No evidence of pulmonary embolism in the central pulmonary arteries. There is no mediastinal, hilar, or axillary lymphadenopathy. Atelectasis/scarring is seen in the bilateral lung bases, right greater than left. There is associated mild bronchiectasis. This is relatively unchanged compared to the prior exam. No evidence of suspicious pulmonary mass or nodule. No central endobronchial obstructing lesions are identified. There is no pleural effusion or pneumothorax. The osseous structures demonstrate no acute abnormalities. Limited views of the upper abdominal structures demonstrate no acute abnormalities. Both adrenal glands are unremarkable. IMPRESSION: 1. Stable atelectasis/scarring in the bilateral lung bases, right greater than left. No new focal consolidations or suspicious pulmonary nodules. 2. Cardiomegaly. 3. Stable ectasia of the ascending and descending thoracic aorta. Dictated by: Dictated on workstation # [id number]
== END ==
LOC: RT 13:00
PROVIDERS: ATTEND Internal Medicine Critical Care Medicine
DX: Z13.83 Encounter for screening for respiratory disorder NEC (principal); J98.11 Atelectasis; I51.7 Cardiomegaly; I77.810 Thoracic aortic ectasia; R06.00 Dyspnea, unspecified
CPT/HCPCS: 36415; 71260; 82565; 84520; 94060; 94726; 94729

== ENCOUNTER 2020-11-30 11:53 | Emergency (ER) | payer MEDICARE ==
[~2020-11-30] VITALS: Ht 180.3 cm; Wt 99.7 kg
[~2020-11-30 11:53] MED LIST changes: -CATHETER FLUSH 10 ML SYR IV PRN; -HOLD METFORMIN - RECEIVED CONTRAST 20 ML VIAL IV SCH; -IOHEXOL 350 MG/ML 100 ML (OMNIPAQUE 350) VIAL IV ONE; -NS 100 ML (IVPB) BAG IV ONE; -RT-ALBUTEROL SULF 2.5 MG/3 ML PRE-MIX VIAL INH ONE
--- NOTE | 2020-11-30 12:23 | ED Neurological Problem ---
General Chief Complaint: Neuro-Stroke Like Symptoms Stated Complaint: TIA Source: patient, family Exam Limitations: no limitations History of Present Illness Date Seen by Provider: Nov 30, 2020 Time Seen by Provider: 12:08 Initial Comments Patient is an 80-year-old male who presents to the emergency department today with a chief complaint of right-sided weakness. Patient states "in retrospect" he believes his symptoms actually started yesterday. This morning after he got up and around he noticed more right leg weakness and right arm weakness. Patient states that he is feeling better at this time. Patient is chronically anticoagulated on Coumadin with a history of abdominal aortic aneurysm repair. He also has a pacemaker. He denies any recent symptoms of fevers, chills, productive cough, abdominal pain nausea, vomiting diarrhea or urinary complaints. He states that he is compliant on his medications. He does not have a headache. He does not have any vision changes. No speech difficulties. All other review of systems reviewed and negative except as stated above. Timing/Duration: 24 hours Severity: moderate Associated Symptoms: trouble walking Allergies and Home Medications Allergies Coded Allergies: Penicillins (Verified Allergy, Unknown, 01/11/16) Sulfa (Sulfonamide Antibiotics) (Verified Allergy, Unknown, 01/11/16) Home Medications Bacitracin/Polymyxin B Sulfate 28.3 Gm Oint...g., 28.3 GM TP BID Prescribed by: USHA RÍOS on 03/18/20 154 Bicalutamide 50 Mg Tablet, 50 MG PO DAILY, (Reported) Carvedilol 6.25 Mg Tablet, 6.25 MG PO BID, (Reported) Docusate Sodium 100 Mg Capsule, 100 MG PO BID, (Reported) Fluoxetine HCl 20 Mg Capsule, 20 MG PO DAILY, (Reported) Hydrochlorothiazide 25 Mg Tablet, 25 MG PO DAILY, (Reported) Hydrocodone/Acetaminophen 1 Each Tablet, 1 EACH PO Q4H Prescribed by: USHA RÍOS on 03/18/20 154 Lutein 40 Mg Capsule, 40 MG PO DAILY, (Reported) Multivitamins 1 Tab Tablet, 1 TAB PO DAILY, (Reported) [place]-3 Fatty Acids/Fish Oil 1 Each Capsule, 1 EACH PO DAILY, (Reported) Simvastatin 20 Mg Tab, 20 MG PO DAILY, (Reported) Vitamin E Acetate 400 Unit Capsule, 400 UNIT PO DAILY, (Reported) Warfarin Sodium 7.5 Mg Tablet, 7.5 MG PO -, (Reported) Warfarin Sodium 5 Mg Tablet, 5 MG PO SAT & SUN, (Reported) Patient Home Medication List Home Medication List Reviewed: Yes Review of Systems Review of Systems Constitutional: see HPI Eyes: No Symptoms Reported Ears, Nose, Mouth, Throat: no symptoms reported Respiratory: no symptoms reported Cardiovascular: no symptoms reported Gastrointestinal: no symptoms reported Musculoskeletal: no symptoms reported Skin: no symptoms reported Psychiatric/Neurological: Unable to Move Lower Ext (Right leg weakness), Unable to Move Upper Ext (Right arm weakness) Endocrine: No Symptoms Reported Past Cafrzxc-Eqrjff-Avpbec Hx Patient Social History Alcohol Use: Denies Use Smoking Status: Former Smoker Type Used: Cigarettes Former Smoker, Quit: Jun 26, 1995 2nd Hand Smoke Exposure: No Recent Hopitalizations: No Immunizations Up To Date Date of Pneumonia Vaccine: Mar 28, 2011 Seasonal Allergies Seasonal Allergies: No Past Medical History Surgeries: Yes (SOFT PALLET REMOVED, STENTS IN HEART, AAA REPAIR) Abdominal, CABG, Coronary Stent, Pacemaker Respiratory: Yes (SLEEP APNEA, USES CPAP) Sleep Apnea Cardiac: Yes (CABG, "LOTS OF STENTS", PACEMAKER) Heart Attack, High Cholesterol, Hypertension Neurological: No Reproductive Disorders: No Sexually Transmitted Disease: No Genitourinary: No Gastrointestinal: No Musculoskeletal: Yes Arthritis Endocrine: No HEENT: No Cancer: Yes (Currently receiving treatment for prostate cancer) Prostate Did You Recieve Any Treatments: Yes What Type of Treatment Did You: Chemotherapy Depression Integumentary: Yes (ERYTHEMA AND WARM L ACW OVER PACEMAKER) Recent Skin Changes Blood Disorders: No Physical Exam Vital Signs Vital Signs - First Documented 11/30/20 11:55 Temp 36.1 Pulse 70 Resp 20 B/P (MAP) 154/103 (120) Pulse Ox 96 O2 Delivery Nasal Cannula O2 Flow Rate 2.00 Capillary Refill : Height, Weight, BMI Height: 6'2.00" Weight: 230lbs. 0.0oz. [id number]; 31.00 BMI Method: General Appearance: WD/WN, no apparent distress HEENT: PERRL/EOMI, normal ENT inspection Neck: full range of motion, supple Respiratory: lungs clear, normal breath sounds, no respiratory distress, no accessory muscle use Cardiovascular: regular rate, rhythm Gastrointestinal: normal bowel sounds, non tender, soft Extremities: normal range of motion, normal inspection, no pedal edema Neurologic/Psychiatric: director of market intelligence II-XII nml as tested, no motor/sensory deficits, alert, normal mood/affect, oriented x 3 Crainal Nerves: normal hearing, normal speech, PERRL Motor/Sensory: no motor deficit, no sensory deficit Skin: normal color, warm/dry Stroke Onset of Symptoms Date of Onset of Symptoms: Nov 29, 2020 Onset of Symptoms: No Symptoms onset unknown: Yes NIH Stroke Scale Assessment Select: Initial Level of Consciousness: 0=Alert (0), Level of Consciousness- Questions: 0=Answers both month/age (0), LOC Commands: 0=Performs both tasks (0), Gaze: Normal (0), Visual Wallace: 0=No visual loss (0), Facial Movement (Facial Paresis): 0=Normal symmetrical mnt (0), Motor Function-Arms Right: 0=No drift (0), Motor Function-Arms Left: 0=No drift (0), Motor Function-Legs Right: 0=No drift (0), Motor Function-Legs Left: 0=No drift (0), Sensory: 0=Normal:no loss (0), Best Language: 0=No aphasia (0), Dysarthria: 0=Normal (0), Extinction & Inattention: 0=No abnormality (0), Total: 0 Stroke Thrombolytic Exclusion Age 18 or Over: Yes Progress/Results/Core Measures Results/Orders Lab Results Laboratory Tests Test 11/30/20 12:10 Range/Units White Blood Count 5.7 4.3-11.0 10^3/uL Red Blood Count 3.49 L 4.30-5.52 10^6/uL Hemoglobin 10.6 L 13.3-17.7 g/dL Hematocrit 33 L 40-54 % Mean Corpuscular Volume 95 80-99 fL Mean Corpuscular Hemoglobin 30 25-34 pg Mean Corpuscular Hemoglobin Concent 32 32-36 g/dL Red Cell Distribution Width 13.9 10.0-14.5 % Platelet Count 140 130-400 10^3/uL Mean Platelet Volume 8.9 L 9.0-12.2 fL Immature Granulocyte % (Auto) 0 % Neutrophils (%) (Auto) 71 42-75 % Lymphocytes (%) (Auto) 17 12-44 % Monocytes (%) (Auto) 7 0-12 % Eosinophils (%) (Auto) 4 0-10 % Basophils (%) (Auto) 1 0-10 % Neutrophils # (Auto) 4.1 1.8-7.8 X 10^3 Lymphocytes # (Auto) 1.0 1.0-4.0 X 10^3 Monocytes # (Auto) 0.4 0.0-1.0 X 10^3 Eosinophils # (Auto) 0.2 0.0-0.3 10^3/uL Basophils # (Auto) 0.0 0.0-0.1 10^3/uL Immature Granulocyte # (Auto) 0.0 0.0-0.1 10^3/uL Prothrombin Time 25.7 H 12.2-14.7 SEC INR Comment 2.3 H 0.8-1.4 Sodium Level 141 135-145 MMOL/L Potassium Level 4.1 3.6-5.0 MMOL/L Chloride Level 102 98-107 MMOL/L Carbon Dioxide Level 29 21-32 MMOL/L Anion Gap 10 5-14 MMOL/L Blood Urea Nitrogen 19 H 7-18 MG/DL Creatinine 1.01 0.60-1.30 MG/DL Estimat Glomerular Filtration Rate > 60 BUN/Creatinine Ratio 19 Glucose Level 104 70-105 MG/DL Calcium Level 9.6 8.5-10.1 MG/DL My Orders Orders - EMEKA BERGMAN MD Ed Iv/Invasive Line Start (11/30/20 12:18) Cbc With Automated Diff (11/30/20 12:18) Basic Metabolic Panel (11/30/20 12:18) Protime With Inr (11/30/20 12:18) Chest 1 View, Ap/Pa Only (11/30/20 12:18) Ct Head Wo (11/30/20 12:18) Ekg Tracing (11/30/20 12:18) Levetiracetam Injection (Keppra Injectio (11/30/20 12:53) Type And Screen (11/30/20 13:30) Levetiracetam Injection (Keppra Injectio (11/30/20 14:01) Human Prothrombin Complx(Pcc) (Kcentra K (11/30/20 14:15) Ns (Ivpb) (Sodium Chloride 0.9%) (11/30/20 14:18) Vital Signs/I&O 11/30/20 11/30/20 11:55 15:27 Temp 36.1 36.1 Pulse 70 70 Resp 20 20 B/P (MAP) 154/103 (120) 141/101 (120) Pulse Ox 96 96 O2 Delivery Nasal Cannula Nasal Cannula O2 Flow Rate 2.00 2.00 Progress Progress Note : Time: 13:38 Progress Note Notified by radiologist of patient's positive findings on CT scan. Focal intraparenchymal hemorrhage in the left parietal lobe with surrounding edema, cannot rule out underlying mass. Patient's vital signs are currently stable with a blood pressure of 149/101 and a heart rate of 60 respiratory rate of 24. He is quite upset regarding these findings. Type and screen has been added. Patient's INR is 2.3. Phone call was made to both [facility] in [place] as well as [facility] in [place] and they are both at ICU capacity. Family requested [facility] in [place]. I have put in a call to them and clouded images to [facility] at this time. [address] Jones critical care and Dr. Suarez at neurosurgery. Dr. Suarez would like Kcentra to be given. We will give him full dose. Patient has been accepted to the neuro ICU. Pending bed placement at this time. Due to the weather we will likely be unable to fly him. He may have to go by ground ambulance. We are also giving 1 g of Keppra for seizure prophylaxis. 1436 Full dose Kcentra being given at this time Initial ECG Impression Date: Nov 30, 2020 Initial ECG Impression Time: 12:00 Initial ECG Rate: 61 Initial ECG Rhythm: Normal Sinus Initial ECG Intervals Atrial paced at 61 bpm WV 189, QRS 101, QTc 428 Diagnostic Imaging Diagonstic Imaging: Xray Plain Films/CT/US/NM/MRI: chest Comments [facility] [place], [place] NAME: ERIC FIGUEROA [facility] REC#: [id number] PT STATUS: REG ER : 1938 PHYSICIAN: EMEKA BERGMAN MD ADMIT DATE: 11/30/20/ER Draft Date of Exam:11/30/20 CHEST 1 VIEW, AP/PA ONLY INDICATION: Right-sided weakness. Comparison is made to prior examination 10/26/2020. FINDINGS: There is cardiomegaly. There is some left perihilar linear atelectasis. There are small bilateral pleural effusions. There is no pneumothorax. Mediastinum is unremarkable. There has been a previous median sternotomy. A pacemaker overlies the right hemithorax. IMPRESSION: Cardiomegaly. Linear scarring about the left hilum which is unchanged. Small bilateral pleural effusions. Dictated on workstation # [id number] Dict: 11/30/20 1240 Trans: 11/30/20 1242 [facility] [phone] Interpreted by: SUBHASH CONTRERAS MD Electronically signed by: Critical Care Note Critical Care Start Time: 12:08 Stop Time: 13:39 Total Time (minutes) 45 minutes critical care time in the evaluation and management of this 80-year-old with intraparenchymal hemorrhage. Time includes evaluation of the patient, review of laboratory studies and CT scan, discussion with radiologist and family, discussion with transfer facility. Departure Impression Primary Impression: Intracranial hemorrhage Additional Impression: Anticoagulated on Coumadin Disposition: XFER SHT-TRM HOSP Condition: Stable Transfer Transfer Reason: Exceeds level of care Time Spoke to Accepting Phy: 14:22 Transfer Progress Notes Discussed with critical care and neurosurgery at [facility] [place], [place]. Dr Jones and Dr Suarez who accept the patient for transfer Transfer Time: 15:45 Transfer Facility: [facility] Method of Transfer: EMS Departure-Patient Inst. Referrals: JUSTICE DRUMMOND MD (PCP/Family) Primary Care Physician EMEKA BERGMAN MD Nov 30, 2020 12:22
[2020-11-30 12:27] LABS: BASOPHILS % (AUTO) 1 % (0-10); EOSINOPHILS # (AUTO) 0.2 10^3/uL (0.0-0.3); EOSINOPHILS % (AUTO) 4 % (0-10); HEMATOCRIT 33 % (40-54); HEMOGLOBIN 10.6 g/dL (13.3-17.7); LYMPHOCYTES % (AUTO) 17 % (12-44); MEAN CORPUSCULAR HEMOGLOBIN 30 pg (25-34); MEAN CORPUSCULAR HGB CONC 32 g/dL (32-36); MEAN CORPUSCULAR VOLUME 95 fL (80-99); MEAN PLATELET VOLUME 8.9 fL (9.0-12.2); MONOCYTES # (AUTO) 0.4 X 10^3 (0.0-1.0); MONOCYTES % (AUTO) 7 % (0-12); NEUTROPHILS # (AUTO) 4.1 X 10^3 (1.8-7.8); NEUTROPHILS % (AUTO) 71 % (42-75); PLATELET COUNT 140 10^3/uL (130-400); WHITE BLOOD COUNT 5.7 10^3/uL (4.3-11.0)
[2020-11-30 12:29] LABS: CHLORIDE 102 MMOL/L (98-107); POTASSIUM 4.1 MMOL/L (3.6-5.0); SODIUM 141 MMOL/L (135-145)
[2020-11-30 12:30] LABS: INR 2.3 (0.8-1.4); PROTHROMBIN TIME PATIENT 25.7 SEC (12.2-14.7)
[2020-11-30 12:31] LABS: CALCIUM 9.6 MG/DL (8.5-10.1); GLUCOSE 104 MG/DL (70-105)
[2020-11-30 12:33] LABS: CARBON DIOXIDE 29 MMOL/L (21-32)
[2020-11-30 12:35] LABS: CREATININE SERUM 1.01 MG/DL (0.60-1.30); GFR ESTIMATED > 60
[2020-11-30 12:36] LABS: BUN/CREATININE RATIO 19
--- NOTE | 2020-11-30 12:42 | Diagnostic Imaging Report ---
INDICATION: Right-sided weakness. Comparison is made to prior examination 10/26/2020. FINDINGS: There is cardiomegaly. There is some left perihilar linear atelectasis. There are small bilateral pleural effusions. There is no pneumothorax. Mediastinum is unremarkable. There has been a previous median sternotomy. A pacemaker overlies the right hemithorax. IMPRESSION: Cardiomegaly. Linear scarring about the left hilum which is unchanged. Small bilateral pleural effusions. Dictated by: Dictated on workstation # [id number]
--- NOTE | 2020-11-30 13:18 | Diagnostic Imaging Report ---
PROCEDURE: CT head without contrast. TECHNIQUE: Multiple contiguous axial images were obtained through the brain without the use of intravenous contrast. Auto Exposure Controls were utilized during the CT exam to meet ALARA standards for radiation dose reduction. INDICATION: Right weakness. FINDINGS: There is a focal intraparenchymal hemorrhage in the left parietal lobe with some surrounding vasogenic edema. There is prominence of ventricles and sulci. There is chronic microvascular ischemic disease. There is no hydrocephalus. Calvarium is intact. There is bilateral maxillary sinus disease. There is fluid in the left mastoid air cells. IMPRESSION: Focal intra-axial hemorrhage in left parietal lobe with surrounding edema likely hypertensive hemorrhage although underlying mass certainly cannot be excluded. Recommend clinical correlation and if warranted follow-up with MRI. Bilateral maxillary sinus disease. Atrophy and some chronic microvascular ischemic disease. Dictated by: Dictated on workstation # [id number]
[2020-11-30] MEDS ORDERED: HUMAN PROTHROMBIN COMPLX(PCC) 500 UNIT (KCENTRA) IV ONE (14:15)
[2020-11-30] MEDS ORDERED: NS (IVPB) 250 ML ONE (14:18)
[2020-11-30 15:27] VITALS: BP 141/101
== END 2020-11-30 15:29 | disposition short-term general hospital (02) ==
LOC: EDUNIT# 11:53 → ER 11:56
DX: I62.9 Nontraumatic intracranial hemorrhage, unspecified (principal); I25.2 Old myocardial infarction; I10 Essential (primary) hypertension; E78.00 Pure hypercholesterolemia, unspecified; F32.9 Major depressive disorder, single episode, unspecified; Z88.2 Allergy status to sulfonamides; Z88.0 Allergy status to penicillin; Z87.891 Personal history of nicotine dependence; Z79.01 Long term (current) use of anticoagulants; Z79.899 Other long term (current) drug therapy
CPT/HCPCS: 36415; 70450; 71045; 80048; 85025; 85610; 86850; 86900; 86901; 93005

== ENCOUNTER → 2020-12-09 | Outpatient (CLI) | payer MEDICARE ==
[2020-12-09 09:23] LABS: HEMATOCRIT 30 % (40-54); HEMOGLOBIN 9.6 G/DL (13.3-17.7); MEAN CORPUSCULAR HEMOGLOBIN 31 PG (25-34); MEAN CORPUSCULAR VOLUME 97 FL (80-99); WHITE BLOOD COUNT 4.5 10^3/uL (4.3-11.0)
[2020-12-09 09:24] LABS: BASOPHILS % (AUTO) 0 % (0-10); EOSINOPHILS % (AUTO) 5 % (0-10); LYMPHOCYTES % (AUTO) 23 % (12-44); MEAN CORPUSCULAR HGB CONC 32 G/DL (32-36); MEAN PLATELET VOLUME 8.8 FL (7.4-10.4); MONOCYTES % (AUTO) 8 % (0-12); NEUTROPHILS % (AUTO) 64 % (42-75); PLATELET COUNT 159 10^3/uL (130-400)
[2020-12-09 09:25] LABS: EOSINOPHILS # (AUTO) 0.2 10^3/uL (0.0-0.3); MONOCYTES # (AUTO) 0.3 X 10^3 (0.0-1.0); NEUTROPHILS # (AUTO) 2.9 X 10^3 (1.8-7.8)
== END ==
LOC: IHC 08:58
PROVIDERS: ATTEND Family Medicine
DX: D64.9 Anemia, unspecified (principal)
CPT/HCPCS: 85025

== ENCOUNTER → 2021-02-25 | Outpatient (CLI) | payer MEDICARE ==
[~2021-02-25] MED LIST changes: +LEUPROLIDE 45 MG ELIGARD SQ SCH
[2021-02-25 11:14] LABS: BASOPHILS % (AUTO) 1 % (0-10); EOSINOPHILS # (AUTO) 0.2 10^3/uL (0.0-0.3); EOSINOPHILS % (AUTO) 3 % (0-10); HEMATOCRIT 35 % (40-54); HEMOGLOBIN 11.1 g/dL (13.3-17.7); LYMPHOCYTES % (AUTO) 19 % (12-44); MEAN CORPUSCULAR HEMOGLOBIN 31 pg (25-34); MEAN CORPUSCULAR HGB CONC 32 g/dL (32-36); MEAN CORPUSCULAR VOLUME 97 fL (80-99); MONOCYTES # (AUTO) 0.5 10^3/uL (0.0-1.0); MONOCYTES % (AUTO) 9 % (0-12); NEUTROPHILS # (AUTO) 3.8 10^3/uL (1.8-7.8); NEUTROPHILS % (AUTO) 69 % (42-75); PLATELET COUNT 113 10^3/uL (130-400); WHITE BLOOD COUNT 5.5 10^3/uL (4.3-11.0)
[2021-02-25 11:21] LABS: ALBUMIN 3.7 GM/DL (3.2-4.5); BILIRUBIN,TOTAL 0.6 MG/DL (0.1-1.0); CALCIUM 9.7 MG/DL (8.5-10.1); CREATININE SERUM 1.19 MG/DL (0.60-1.30); POTASSIUM 4.5 MMOL/L (3.6-5.0)
== END ==
LOC: ONC 10:38
PROVIDERS: ATTEND Internal Medicine Hematology & Oncology
DX: C61 Malignant neoplasm of prostate (principal); C77.9 Secondary and unspecified malignant neoplasm of lymph node, unspecified; I10 Essential (primary) hypertension; Z79.890 Hormone replacement therapy; Z79.899 Other long term (current) drug therapy; Z88.0 Allergy status to penicillin; Z88.2 Allergy status to sulfonamides; Z88.5 Allergy status to narcotic agent; Z87.891 Personal history of nicotine dependence
CPT/HCPCS: 80053; 84153; 85025; 96402; G0463

== ENCOUNTER → 2021-08-16 | Outpatient (CLI) | payer MEDICARE ==
[2021-08-16 10:41] LABS: BASOPHILS % (AUTO) 1 % (0-10); EOSINOPHILS # (AUTO) 0.2 10^3/uL (0.0-0.3); EOSINOPHILS % (AUTO) 3 % (0-10); HEMOGLOBIN 10.7 g/dL (13.3-17.7)
[2021-08-16 10:42] LABS: HEMATOCRIT 33 % (40-54); LYMPHOCYTES % (AUTO) 18 % (12-44); MEAN CORPUSCULAR HEMOGLOBIN 31 pg (25-34); MEAN CORPUSCULAR HGB CONC 32 g/dL (32-36); MEAN CORPUSCULAR VOLUME 97 fL (80-99); MONOCYTES # (AUTO) 0.5 10^3/uL (0.0-1.0); MONOCYTES % (AUTO) 9 % (0-12); NEUTROPHILS # (AUTO) 3.8 10^3/uL (1.8-7.8); NEUTROPHILS % (AUTO) 69 % (42-75); PLATELET COUNT 115 10^3/uL (130-400); WHITE BLOOD COUNT 5.5 10^3/uL (4.3-11.0)
[2021-08-16 11:01] LABS: ALBUMIN 3.6 GM/DL (3.2-4.5); BILIRUBIN,TOTAL 0.5 MG/DL (0.1-1.0); CALCIUM 9.5 MG/DL (8.5-10.1); CREATININE SERUM 1.31 MG/DL (0.60-1.30); POTASSIUM 4.5 MMOL/L (3.6-5.0); TOTAL PROTEIN 7.1 GM/DL (6.4-8.2)
== END ==
LOC: ONC 10:27
PROVIDERS: ATTEND Internal Medicine
DX: C61 Malignant neoplasm of prostate (principal); C77.9 Secondary and unspecified malignant neoplasm of lymph node, unspecified; I10 Essential (primary) hypertension
CPT/HCPCS: 36415; 80053; 84153; 85025; 96402

== ENCOUNTER → 2021-12-06 | Outpatient (CLI) | payer MEDICARE ==
[~2021-12-06] MED LIST changes: -LEUPROLIDE 45 MG ELIGARD SQ SCH
[2021-12-06 13:16] LABS: BASOPHILS % (AUTO) 1 % (0-10); EOSINOPHILS # (AUTO) 0.3 10^3/uL (0.0-0.3); EOSINOPHILS % (AUTO) 6 % (0-10); HEMATOCRIT 35 % (40-54); HEMOGLOBIN 11.4 g/dL (13.3-17.7); LYMPHOCYTES # (AUTO) 1.1 10^3/uL (1.0-4.0); LYMPHOCYTES % (AUTO) 20 % (12-44); MEAN CORPUSCULAR HEMOGLOBIN 31 pg (25-34); MEAN CORPUSCULAR HGB CONC 33 g/dL (32-36); MEAN CORPUSCULAR VOLUME 95 fL (80-99); MEAN PLATELET VOLUME 8.8 fL (9.0-12.2); MONOCYTES # (AUTO) 0.5 10^3/uL (0.0-1.0); MONOCYTES % (AUTO) 8 % (0-12); NEUTROPHILS # (AUTO) 3.8 10^3/uL (1.8-7.8); NEUTROPHILS % (AUTO) 66 % (42-75); PLATELET COUNT 138 10^3/uL (130-400); WHITE BLOOD COUNT 5.7 10^3/uL (4.3-11.0)
[2021-12-06 13:29] LABS: ALBUMIN 3.8 GM/DL (3.2-4.5); BILIRUBIN,TOTAL 0.4 MG/DL (0.1-1.0); CALCIUM 9.5 MG/DL (8.5-10.1); CREATININE SERUM 0.96 MG/DL (0.60-1.30); POTASSIUM 4.1 MMOL/L (3.6-5.0); TOTAL PROTEIN 7.4 GM/DL (6.4-8.2)
== END ==
LOC: ONC 12:00
PROVIDERS: ATTEND Internal Medicine
DX: C61 Malignant neoplasm of prostate (principal); C77.9 Secondary and unspecified malignant neoplasm of lymph node, unspecified; D53.9 Nutritional anemia, unspecified; D69.6 Thrombocytopenia, unspecified; I25.10 Atherosclerotic heart disease of native coronary artery without angina pectoris; I11.9 Hypertensive heart disease without heart failure; E66.9 Obesity, unspecified; Z95.1 Presence of aortocoronary bypass graft
CPT/HCPCS: 80053; 82525; 82607; 82728; 82746; 83540; 83550; 83883; 83921; 84155; 84165; 85025; G0463; 99214

== ENCOUNTER → 2021-12-20 | Outpatient (CLI) | payer MEDICARE | LOC: ONC 11:00 | PROVIDERS: ATTEND Internal Medicine | DX: C61 Malignant neoplasm of prostate (principal); C77.9 Secondary and unspecified malignant neoplasm of lymph node, unspecified; I25.10 Atherosclerotic heart disease of native coronary artery without angina pectoris; I13.10 Hypertensive heart and chronic kidney disease without heart failure, with stage 1 through stage 4 chronic kidney disease, or unspecified chronic kidney disease; N18.9 Chronic kidney disease, unspecified; D63.1 Anemia in chronic kidney disease; E66.9 Obesity, unspecified; Z95.1 Presence of aortocoronary bypass graft | CPT/HCPCS: 99213 ==

== ENCOUNTER 2022-02-14 09:59 | Outpatient (RCR) | payer MEDICARE ==
[2022-02-10 11:44] LABS: BASOPHILS % (AUTO) 1 % (0-10); MEAN CORPUSCULAR VOLUME 94 fL (80-99)
[2022-02-10 11:45] LABS: EOSINOPHILS # (AUTO) 0.1 10^3/uL (0.0-0.3); EOSINOPHILS % (AUTO) 2 % (0-10); HEMATOCRIT 34 % (40-54); HEMOGLOBIN 10.8 g/dL (13.3-17.7); LYMPHOCYTES # (AUTO) 1.1 10^3/uL (1.0-4.0); LYMPHOCYTES % (AUTO) 20 % (12-44); MEAN CORPUSCULAR HEMOGLOBIN 30 pg (25-34); MEAN CORPUSCULAR HGB CONC 32 g/dL (32-36); MONOCYTES # (AUTO) 0.5 10^3/uL (0.0-1.0); MONOCYTES % (AUTO) 9 % (0-12); NEUTROPHILS # (AUTO) 3.7 10^3/uL (1.8-7.8); NEUTROPHILS % (AUTO) 69 % (42-75); PLATELET COUNT 120 10^3/uL (130-400); WHITE BLOOD COUNT 5.4 10^3/uL (4.3-11.0)
[2022-02-10 12:08] LABS: ALBUMIN 3.8 GM/DL (3.2-4.5); BILIRUBIN,TOTAL 0.7 MG/DL (0.1-1.0); CALCIUM 9.6 MG/DL (8.5-10.1); CREATININE SERUM 0.96 MG/DL (0.60-1.30); POTASSIUM 4.4 MMOL/L (3.6-5.0); TOTAL PROTEIN 7.3 GM/DL (6.4-8.2)
[~2022-02-14 09:59] MED LIST changes: +LEUPROLIDE 45 MG ELIGARD SQ SCH
== END 2022-02-23 | disposition home or self-care (01) ==
LOC: ONC 09:59 → EDSTATUS 11:18
PROVIDERS: ATTEND Internal Medicine
DX: C61 Malignant neoplasm of prostate (principal); D64.9 Anemia, unspecified; I10 Essential (primary) hypertension; E66.9 Obesity, unspecified
CPT/HCPCS: 36415; 80053; 84153; 84403; 85025; 96402

== ENCOUNTER 2022-04-25 08:39 | Emergency (ER) | payer MEDICARE ==
[~2022-04-25] VITALS: Ht 183 cm; Wt 90.7 kg
[~2022-04-25 08:39] MED LIST changes: -LEUPROLIDE 45 MG ELIGARD SQ SCH
--- NOTE | 2022-04-25 10:08 | ED GI ---
General Chief Complaint: Abdominal/GI Problems Stated Complaint: CONSTIPATION Nursing Triage Note: PT STATES 2 WEEKS SINCE HE HAD A GOOD BM, EATING AND DRINKING WELL, STATES "PASSING COLORED WATER." Source of Information: Patient Exam Limitations: No Limitations History of Present Illness Date Seen by Provider: Apr 25, 2022 Time Seen by Provider: 09:02 Initial Comments This 81-year-old gentleman presents to the emergency room with primary complaint of lack of a good bowel movement for 10 days to 2 weeks. He states he is passing small quantities of liquidy stool. He had a CT scan performed last Monday for monitoring of an abdominal aortic aneurysm, and he reports that his colon was full of stool on that CT report. He states no one has conversed with him regarding the status of his aneurysm since that CT scan which was performed at [facility] in [place], [place]. I was able to obtain a copy of that CT scan through the clinic. It revealed an aneurysm measuring up to 7.2 cm in diameter with an aortobiliac stent graft in place. Upon further investigation with the cardiothoracic surgery clinic, it was discovered the patient had an ultrasound performed in December measuring the aneurysm at 6.3 cm x 6.0 cm. He additionally had a CT in 2018 showing a diameter of 5.2 cm. It is clear he is demonstrating progressive enlargement of the aneurysms. Patient is also markedly hypertensive during assessment. He denies any abdominal pain. His primary care provider is Justice Anguiano at [facility]. His online advertising director is Dr. De La Torre in [place]. His cardiothoracic surgeon was Dr. Marcello Lewis at [facility] in [place]. Allergies and Home Medications Allergies Coded Allergies: Penicillins (Verified Allergy, Unknown, 01/11/16) Sulfa (Sulfonamide Antibiotics) (Verified Allergy, Unknown, 01/11/16) Patient Home Medication List Home Medication List Reviewed: Yes Amlodipine Besylate (Amlodipine Besylate) 5 Mg Tablet, (Reported) Entered as Reported by: ELENI CHOPRA on 04/05/20 1607 Amlodipine Besylate (Amlodipine Besylate) 10 Mg Tablet, 10 MG PO DAILY Prescribed by: ORLANDO GODINEZ on 04/25/22 1401 Bacitracin/Polymyxin B Sulfate (Polysporin Ointment) 28.3 Gm Oint...g., 28.3 GM TP BID Prescribed by: USHA RÍOS on 03/18/20 1548 Bicalutamide (Bicalutamide) 50 Mg Tablet, 50 MG PO DAILY, (Reported) Entered as Reported by: YOUNG MARI on 01/14/161510 Carvedilol (Carvedilol) 6.25 Mg Tablet, 6.25 MG PO BID, (Reported) Entered as Reported by: YOUNG MARI on 01/14/161510 Docusate Sodium (Docusate Sodium) 100 Mg Capsule, 100 MG PO BID, (Reported) Entered as Reported by: YOUNG MARI on 01/14/161510 Fluoxetine HCl (Prozac) 20 Mg Capsule, 20 MG PO DAILY, (Reported) Entered as Reported by: YOUNG MARI on 01/14/161510 Hydrochlorothiazide (Hydrochlorothiazide) 25 Mg Tablet, 25 MG PO DAILY, (Reported) Entered as Reported by: YOUNG MARI on 01/14/161510 Hydrocodone/Acetaminophen (Hydrocodone-Acetamin 5-325 mg) 1 Each Tablet, 1 EACH PO Q4H Prescribed by: USHA RÍOS on 03/18/20 1549 Lutein (Lutein) 40 Mg Capsule, 40 MG PO DAILY, (Reported) Entered as Reported by: YOUNG MARI on 01/14/161510 Metoprolol Tartrate (Metoprolol Tartrate) 50 Mg Tablet, (Reported) Entered as Reported by: ELENI CHOPRA on 04/05/20 1607 Multivitamins (Multiple Vitamin) 1 Tab Tablet, 1 TAB PO DAILY, (Reported) Entered as Reported by: ARABELLA ACOSTA on 01/21/10 09 Alzada-3 Fatty Acids/Fish Oil (Fish Oil 1,000 Mg Softgel) 1 Each Capsule, 1 EACH PO DAILY, (Reported) Entered as Reported by: ARABELLA ACOSTA on 01/21/10912 Simvastatin (Zocor) 20 Mg Tab, 20 MG PO DAILY, (Reported) Entered as Reported by: ARABELLA ACOSTA on 01/21/10 09 Tiotropium [place] (Spiriva) 1 Inh Aerp, (Reported) Entered as Reported by: ELENI CHOPRA on 04/05/20 1607 Vitamin E Acetate (Vitamin E) 400 Unit Capsule, 400 UNIT PO DAILY, (Reported) Entered as Reported by: ARABELLA ACOSTA on 01/21/10 0913 Warfarin Sodium (Warfarin Sodium) 7.5 Mg Tablet, 7.5 MG PO M-F, (Reported) Entered as Reported by: YOUNG MARI on 01/14/16 1511 Warfarin Sodium (Warfarin Sodium) 5 Mg Tablet, 5 MG PO SAT & SUN, (Reported) Entered as Reported by: YOUNG MARI on 01/14/16 1511 Review of Systems Review of Systems Constitutional: no symptoms reported EENTM: No Symptoms Reported Respiratory: No Symptoms Reported Cardiovascular: See HPI Gastrointestinal: See HPI Genitourinary: No Symptoms Reported Musculoskeletal: no symptoms reported Skin: no symptoms reported Psychiatric/Neurological: No Symptoms Reported Endocrine: No Symptoms Reported Hematologic/Lymphatic: No Symptoms Reported Past Maxintw-Ushrab-Zinbbu Hx Patient Social History Tobacco Use?: Yes Smoking Status: Former Smoker Substance use?: No Alcohol Use?: No Immunizations Up To Date COVID19 Vaccine Transport Pilot: YuMingle Seasonal Allergies Seasonal Allergies: No Past Medical History Surgery/Hospitalization HX: HYPERTENSION, "STENTS EVERYWHERE", CAD, PAD, AAA Surgeries: Yes (SOFT PALLET REMOVED, STENTS IN HEART, AAA REPAIR) Abdominal, CABG, Coronary Stent, Pacemaker, Vascular Surgery (Abdominal aortic and biiliac aneurysm grafting) Respiratory: Yes (SLEEP APNEA, USES CPAP) Sleep Apnea Cardiac: Yes (CABG, "LOTS OF STENTS", PACEMAKER) Aneurysm (Abdominal aortic and iliac), Heart Attack, High Cholesterol, Hypertension, Peripheral Vascular Neurological: No Reproductive Disorders: No Sexually Transmitted Disease: No Genitourinary: No Gastrointestinal: No Musculoskeletal: Yes Arthritis Endocrine: No HEENT: No Cancer: Yes (Currently receiving treatment for prostate cancer) Prostate Did You Recieve Any Treatments: Yes What Type of Treatment Did You: Chemotherapy Depression Integumentary: Yes (ERYTHEMA AND WARM L ACW OVER PACEMAKER) Recent Skin Changes Blood Disorders: No Physical Exam Vital Signs Vital Signs - First Documented 04/25/22 08:43 Temp 36.7 Pulse 75 Resp 18 B/P (MAP) 166/113 (130) Pulse Ox 97 O2 Delivery Room Air Capillary Refill : Less Than 3 Seconds Height/Weight/BMI Height: 6'2.00" Weight: 230lbs. 0.0oz. [id number]; 27.00 BMI Method: General Appearance: WD/WN, no apparent distress HEENT: PERRL/EOMI, normal ENT inspection Neck: normal inspection Respiratory: lungs clear, normal breath sounds, no respiratory distress Cardiovascular: regular rate, rhythm, no edema, no murmur Gastrointestinal: normal bowel sounds, soft, mass (Palpable mass in the lower central abdomen consistent with the aneurysm noted on CT scans) Extremities: normal inspection, no pedal edema Neurologic/Psychiatric: metal ceiling hanger II-XII nml as tested, no motor/sensory deficits, alert, normal mood/affect, oriented x 3 Skin: normal color, warm/dry Progress/Results/Core Measures Results/Orders Lab Results Laboratory Tests Test 04/25/22 10:09 04/25/22 12:10 Range/Units Stool Occult Blood Immunoassay NEGATIVE NEGATIVE White Blood Count 6.5 4.3-11.0 10^3/uL Red Blood Count 3.54 L 4.30-5.52 10^6/uL Hemoglobin 10.8 L 13.3-17.7 g/dL Hematocrit 34 L 40-54 % Mean Corpuscular Volume 96 80-99 fL Mean Corpuscular Hemoglobin 31 25-34 pg Mean Corpuscular Hemoglobin Concent 32 32-36 g/dL Red Cell Distribution Width 14.5 10.0-14.5 % Platelet Count 136 130-400 10^3/uL Mean Platelet Volume 8.8 L 9.0-12.2 fL Immature Granulocyte % (Auto) 1 % Neutrophils (%) (Auto) 73 42-75 % Lymphocytes (%) (Auto) 15 12-44 % Monocytes (%) (Auto) 7 0-12 % Eosinophils (%) (Auto) 3 0-10 % Basophils (%) (Auto) 0 0-10 % Neutrophils # (Auto) 4.7 1.8-7.8 10^3/uL Lymphocytes # (Auto) 1.0 1.0-4.0 10^3/uL Monocytes # (Auto) 0.5 0.0-1.0 10^3/uL Eosinophils # (Auto) 0.2 0.0-0.3 10^3/uL Basophils # (Auto) 0.0 0.0-0.1 10^3/uL Immature Granulocyte # (Auto) 0.0 0.0-0.1 10^3/uL Sodium Level 137 135-145 MMOL/L Potassium Level 4.4 3.6-5.0 MMOL/L Chloride Level 98 98-107 MMOL/L Carbon Dioxide Level 29 21-32 MMOL/L Anion Gap 10 5-14 MMOL/L Blood Urea Nitrogen 18 7-18 MG/DL Creatinine 0.86 0.60-1.30 MG/DL Estimat Glomerular Filtration Rate 86 BUN/Creatinine Ratio 21 Glucose Level 101 70-105 MG/DL Calcium Level 9.7 8.5-10.1 MG/DL B-Type Natriuretic Peptide 226.5 H <100.0 PG/ML Thyroid Stimulating Hormone (TSH) 1.79 0.35-4.94 UIU/ML Free Thyroxine 0.99 0.70-1.48 NG/DL Micro Results Microbiology 04/25/22 Fecal Leukocyte Stain - Final, Resulted 04/25/22 C. difficile GDH Antigen & Toxins - Final, Resulted 04/25/22 Stool Culture, Resulted Pending My Orders Orders - ORLANDO TYSON MD Stool Culture (04/25/22 10:05) Fecal Wbc (04/25/22 10:05) C Difficile Ag + Toxin A/B. (04/25/22 10:05) Occult Blood Stool (04/25/22 10:05) Abdomen, Flat & Upright/Decub (04/25/22 10:12) Basic Metabolic Panel (04/25/22 12:00) Bnp [place] (04/25/22 12:00) Cbc With Automated Diff (04/25/22 12:00) Thyroid Stimulating Hormone (04/25/22 12:00) Free T4 (Free Thyroxine) (04/25/22 12:00) Ed Iv/Invasive Line Start (04/25/22 12:01) Labetalol Injection (Normodyne Injection (04/25/22 12:15) Amlodipine Tablet (Norvasc Tablet) (04/25/22 13:00) Hydralazine Injection (Apresoline Inject (04/25/22 13:30) Medications Given in ED Current Medications Medications Dose Ordered Sig/Lilliam Route Start Time Stop Time Status Last Admin Dose Admin Amlodipine Besylate 10 mg ONCE ONCE PO 04/25/22 13:00 04/25/22 13:01 DC 04/25/22 13:29 10 MG Hydralazine HCl 10 mg ONCE ONCE IV 04/25/22 13:30 04/25/22 13:31 DC 04/25/22 13:30 10 MG Labetalol HCl 10 mg ONCE ONCE IV 04/25/22 12:15 04/25/22 12:16 DC 04/25/22 12:17 10 MG Vital Signs/I&O 04/25/22 04/25/22 08:43 14:09 Temp 36.7 36.7 Pulse 75 63 Resp 18 18 B/P (MAP) 166/113 (130) 138/79 Pulse Ox 97 97 O2 Delivery Room Air Room Air Blood Pressure Mean: 130 Progress Progress Note : Progress Note The series of imaging reports was reviewed with Dr. Ferrer, cardiothoracic surgeon at [facility]. He advised the patient to have close follow-up in the clinic and to control blood pressure very tightly with a target of 140 or less systolic and less than 80 MAP. Patient was initially treated with labetalol 10 mg IV. He did have some positive response. No further labetalol was given due to heart rate of around 60. He was further treated with hydralazine with good response. He was having a satisfactory trend downward in his blood pressure prior to discharge. It was noted in his medication filling record that he was previously on amlodipine. He does not know why he is not currently taking it. Amlodipine 10 mg was administered in the ER and a prescription was provided. Patient is to monitor his blood pressures at home. An appointment was scheduled at Dr. Ferrer's office for April 27. Patient was quite concerned about what might of happened to the stool burden seen on the CT scan. I reassured him that he did not have a significant stool burden on his x-rays today that should be of major concern. Apparently the MiraLAX and other laxatives he took were effective. He was advised that no further laxatives are needed at this time. Diagnostic Imaging Diagonstic Imaging: Xray Plain Films/CT/US/NM/MRI: abdomen, pelvis Comments Abdominal x-rays reviewed by me and report reviewed. See report below: NAME: ERIC FIGUEROA [facility] REC#: [id number] PT STATUS: REG ER : 1940 PHYSICIAN: ORLANDO TYSON MD ADMIT DATE: 04/25/22/ER Draft Date of Exam:04/25/22 ABDOMEN, FLAT & UPRIGHT/DECUB INDICATION: Constipation. Time of Exam: 10:27 AM There is gas throughout nondilated small and large bowel loops. There are some scattered air-fluid levels present in the colon, nonspecific. No free air is seen. No pathologic calcifications are identified. There are postoperative changes in the abdomen. The patient appears to have aortic stent graft. There are embolization coils in the pelvis. No pathologic calcifications are seen. IMPRESSION: Nonspecific bowel gas pattern with scattered air-fluid levels in the colon. No other significant abnormality is seen. Dictated on workstation # [id number] Dict: 04/25/22 1104 Trans: 04/25/22 1110 [facility] [id number] Interpreted by: MARCELLO ANDREWS MD Departure Impression Primary Impression: Abdominal aortic aneurysm Qualified Codes: I71.43 - Infrarenal abdominal aortic aneurysm, without rupture Additional Impressions: Uncontrolled hypertension Loose stools Disposition: HOME, SELF-CARE Condition: Improved Departure-Patient Inst. Decision time for Depature: 13:53 Referrals: JUSTICE ANGUIANO MD (PCP/Family) Primary Care Physician Patient Instructions: Abdominal Aortic Aneurysm, High Blood Pressure ED Add. Discharge Instructions: Start taking amlodipine as prescribed tomorrow morning. Your target blood pressure should be 140 or less on the top (systolic blood pressure) and 90 or less on the bottom (diastolic blood pressure). It is very important to control your blood pressure well to reduce risk of the aneurysm rupturing or leaking. Avoid things that can elevate your blood pressure such as excessive salt, excessive stimulants like caffeine, diet pills, decongestants, energy drinks, workout supplements, etc. If you are not achieving these goals by end of day tomorrow, you may increase your metoprolol to 50 mg twice daily. You have an appointment with Dr. Ferrer at 1 PM on April 27. If this appointment time does not work for you, call at the number below to reschedule. You should call his office tomorrow to confirm the appointment time and to be certain they have what they need for your appointment. Dr. Ferrer [address] [place] [address] [address], [place] [id number] You do not appear to have any constipation on your abdominal x-ray in the emergency room. You do have some liquidy stool in your colon, so you should expect some loose or watery stools for the next couple of days. He do not need to use any additional laxatives or stool softeners to clear your colon at this time. Also schedule an appointment with your primary care provider for sometime after your appointment with Dr. Ferrer. Return to care if you have any worsening symptoms despite following these instructions. All discharge instructions reviewed with patient and/or family. Voiced understanding. Scripts Amlodipine Besylate (Amlodipine Besylate) 10 Mg Tablet 10 MG PO DAILY, #30 TAB Start morning of 04/26/22. Prov: ORLANDO TYSON MD 04/25/22 Copy Copies To 1: [facility]/ORLANDO RODRIGUEZ MD Apr 25, 2022 10:07
--- NOTE | 2022-04-25 11:11 | Diagnostic Imaging Report ---
INDICATION: Constipation. Time of Exam: 10:27 AM There is gas throughout nondilated small and large bowel loops. There are some scattered air-fluid levels present in the colon, nonspecific. No free air is seen. No pathologic calcifications are identified. There are postoperative changes in the abdomen. The patient appears to have aortic stent graft. There are embolization coils in the pelvis. No pathologic calcifications are seen. IMPRESSION: Nonspecific bowel gas pattern with scattered air-fluid levels in the colon. No other significant abnormality is seen. Dictated by: Dictated on workstation # [id number]
[2022-04-25] MEDS ORDERED: LABETALOL HCL 20 MG/4 ML VIAL IV ONE ×2 (12:15→13:30)
[2022-04-25 12:19] LABS: BASOPHILS % (AUTO) 0 % (0-10); EOSINOPHILS # (AUTO) 0.2 10^3/uL (0.0-0.3); EOSINOPHILS % (AUTO) 3 % (0-10); HEMATOCRIT 34 % (40-54); HEMOGLOBIN 10.8 g/dL (13.3-17.7); LYMPHOCYTES % (AUTO) 15 % (12-44); MEAN CORPUSCULAR HEMOGLOBIN 31 pg (25-34); MEAN CORPUSCULAR HGB CONC 32 g/dL (32-36); MEAN CORPUSCULAR VOLUME 96 fL (80-99); MEAN PLATELET VOLUME 8.8 fL (9.0-12.2); MONOCYTES # (AUTO) 0.5 10^3/uL (0.0-1.0); MONOCYTES % (AUTO) 7 % (0-12); NEUTROPHILS # (AUTO) 4.7 10^3/uL (1.8-7.8); NEUTROPHILS % (AUTO) 73 % (42-75); PLATELET COUNT 136 10^3/uL (130-400); WHITE BLOOD COUNT 6.5 10^3/uL (4.3-11.0)
[2022-04-25 12:31] LABS: POTASSIUM 4.4 MMOL/L (3.6-5.0)
[2022-04-25 12:32] LABS: CALCIUM 9.7 MG/DL (8.5-10.1)
[2022-04-25 12:36] LABS: CREATININE SERUM 0.86 MG/DL (0.60-1.30)
[2022-04-25 12:59] LABS: FREE T4 (FREE THYROXINE) 0.99 NG/DL (0.70-1.48)
[2022-04-25] MEDS ORDERED: amLODIPine 10 MG (NORVASC) TAB PO ONE (13:00)
[2022-04-25] MEDS ORDERED: hydrALAZINE (APESOLINE) 20 MG/ML VIAL IV ONE (13:30)
[2022-04-25] MEDS ORDERED: AMLO-251 PO (14:01)
[2022-04-25 14:09] VITALS: BP 138/79
== END 2022-04-25 14:09 | disposition home or self-care (01) ==
LOC: EDUNIT# 08:39 → ER 08:41
DX: I71.40 Abdominal aortic aneurysm, without rupture, unspecified (principal); I10 Essential (primary) hypertension; R19.7 Diarrhea, unspecified; Z87.891 Personal history of nicotine dependence; Z95.828 Presence of other vascular implants and grafts
CPT/HCPCS: 36415; 74019; 80048; 82274; 83880; 84439; 84443; 85025; 87015; 87045; 87046; 87324; 87449; 87899; 89055

== ENCOUNTER → 2022-09-22 | Outpatient (CLI) | payer MEDICARE, OTHER ==
[~2022-09-22] MED LIST changes: +AMLO-251 PO
--- NOTE | 2022-09-22 09:05 | Diagnostic Imaging Report ---
PROCEDURE: CT abdomen and pelvis without contrast. TECHNIQUE: Multiple contiguous axial images were obtained through the abdomen and pelvis without the use of intravenous contrast. Auto Exposure Controls were utilized during the CT exam to meet ALARA standards for radiation dose reduction. INDICATION: Left-sided low back pain and sciatica as well as hematuria. CORRELATION is made with prior CT from 10/04/2018. There is linear atelectasis or scarring in the lingula and bilateral lower lobes. The liver is unremarkable. Gallbladder contains a small stone. There is no biliary ductal dilatation. Pancreas and spleen are unremarkable. No adrenal mass is identified. Kidneys are without evidence of calculi. There are tiny cortical low-attenuation lesions in the right kidney, too small to characterize. The patient does have an abdominal aortic aneurysm treated with an endograft. The aneurysm sac dimensions have increased, now measuring 7.1 cm AP compared with approximately 5.1 cm AP on prior exam. Findings likely owing to an endoleak. No rupture is identified. There is a large masslike density adjacent to the left external iliac artery. This appears to be bilobed measuring 8.7 x 7.5 cm. There are some coils along the lateral margin of this lesion. 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 Lymphadenopathy would produce a similar appearance. A postcontrast study would be useful for further evaluation. The bowel loops are normal caliber. Bladder is decompressed. There is no free fluid or fluid collection identified. IMPRESSION: 1. Cholelithiasis. 2. Abdominal aortic aneurysm treated with an endograft. The excluded aneurysm sac dimensions have increased significantly since prior study from 2019 and findings are consistent with an endoleak. No rupture is identified. 3. 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 Pelvic lymphadenopathy would be an additional consideration. CT study with contrast would be useful if patient can receive IV contrast. Dictated by: Dictated on workstation # [id number]
== END ==
LOC: RAD FS 08:20
PROVIDERS: ATTEND Family Medicine
DX: K80.20 Calculus of gallbladder without cholecystitis without obstruction (principal); I71.40 Abdominal aortic aneurysm, without rupture, unspecified; R19.00 Intra-abdominal and pelvic swelling, mass and lump, unspecified site; I89.0 Lymphedema, not elsewhere classified; M54.40 Lumbago with sciatica, unspecified side; R31.9 Hematuria, unspecified
CPT/HCPCS: 74176

== ENCOUNTER → 2022-09-23 | Outpatient (CLI) | payer MEDICARE, OTHER ==
[~2022-09-23] MED LIST changes: +CATHETER FLUSH 10 ML SYR IV PRN; +HOLD METFORMIN - RECEIVED CONTRAST 20 ML VIAL IV SCH; +IOHEXOL 350 MG/ML 100 ML (OMNIPAQUE 350) VIAL IV ONE; +NS 100 ML (IVPB) BAG IV ONE
[2022-09-23 16:58] LABS: CREATININE SERUM 0.96 MG/DL (0.60-1.30)
--- NOTE | 2022-09-23 18:06 | Diagnostic Imaging Report ---
EXAMINATION: CT angiography of the abdomen and pelvis. TECHNIQUE: After intravenous administration of contrast, thin section axial CT angiography of the abdomen and pelvis were obtained. 3D MIP reformats were provided. All CT scans use one or more of the following dose optimizing techniques: automated exposure control, MA and/or KvP adjustment based on a patient size and exam type, or iterative reconstruction. HISTORY: Abdominal aortic aneurysm. COMPARISON: 09/22/2022. FINDINGS: There is a stent graft in the abdominal aorta. The excluded aneurysm sac measures 8.2 x 7.4 cm. There are stents in the bilateral common iliac arteries. The common iliac artery limbs are not directly apposed to the aortic limb. There is an endoleak arising from the right common iliac limb. There has been embolization of the internal iliac arteries bilaterally. 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 Superior mesenteric artery is normal. Both renal arteries are normal. There is a mass in the right pelvic sidewall measuring 6.4 x 5.0 cm which is abutting the embolization coils in the internal iliac artery favored to represent an aneurysm. There is no flow within the lesion. 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 Limited views of the lower thorax show bibasilar atelectasis and pacemaker leads. Coronary arteries are moderately calcified. The liver is normal without focal lesion. There is no biliary ductal dilation. Gallbladder is normal. Pancreas is normal. Spleen is normal. Adrenal glands are normal. The kidneys are normal. There is no hydronephrosis. Urinary bladder is normal. Bowel is normal in caliber without obstruction or inflammation. No free fluid or air. No abdominal or pelvic lymphadenopathy. There are no suspicious osseus lesions. 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 IMPRESSION: 1. Abdominal aortic aneurysm with a stent graft present. There is an endoleak which arises from the right common iliac limb. The iliac limbs are not opposed to the aortic portion. It is unclear if this is due to graft migration or is due to a staged procedure. Correlate with surgical history. 2. Large left pelvic sidewall masses. These abut embolization coils and there was previously an internal iliac artery aneurysm in this location. 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 Lymphadenopathy is possible as well and a PET/CT or three month follow-up could be performed to ensure lack of metabolic activity and stability. Dictated by: Dictated on workstation # [id number]
== END ==
LOC: RAD FS 15:38
PROVIDERS: ATTEND Family Medicine
DX: R19.00 Intra-abdominal and pelvic swelling, mass and lump, unspecified site (principal); I71.40 Abdominal aortic aneurysm, without rupture, unspecified
CPT/HCPCS: 36415; 74174; 82565; 84520; Q9967

== ENCOUNTER 2023-05-10 15:24 | Outpatient (RCR) | payer MEDICARE, OTHER ==
[~2023-05-10 15:24] MED LIST changes: -CATHETER FLUSH 10 ML SYR IV PRN; -HOLD METFORMIN - RECEIVED CONTRAST 20 ML VIAL IV SCH; -IOHEXOL 350 MG/ML 100 ML (OMNIPAQUE 350) VIAL IV ONE; +LEUPROLIDE 45 MG ELIGARD SQ SCH; -NS 100 ML (IVPB) BAG IV ONE
[2023-05-10 16:06] LABS: BASOPHILS % (AUTO) 1 % (0-10); EOSINOPHILS # (AUTO) 0.2 10^3/uL (0.0-0.3); EOSINOPHILS % (AUTO) 3 % (0-10); HEMATOCRIT 38 % (40-54); HEMOGLOBIN 12.1 g/dL (13.3-17.7); LYMPHOCYTES # (AUTO) 1.3 10^3/uL (1.0-4.0); LYMPHOCYTES % (AUTO) 21 % (12-44); MEAN CORPUSCULAR HEMOGLOBIN 32 pg (25-34); MEAN CORPUSCULAR HGB CONC 32 g/dL (32-36); MEAN CORPUSCULAR VOLUME 99 fL (80-99); MEAN PLATELET VOLUME 8.5 fL (9.0-12.2); MONOCYTES # (AUTO) 0.6 10^3/uL (0.0-1.0); MONOCYTES % (AUTO) 9 % (0-12); NEUTROPHILS # (AUTO) 4.1 10^3/uL (1.8-7.8); NEUTROPHILS % (AUTO) 67 % (42-75); PLATELET COUNT 164 10^3/uL (130-400); WHITE BLOOD COUNT 6.2 10^3/uL (4.3-11.0)
[2023-05-10 16:25] LABS: ALBUMIN 3.8 GM/DL (3.2-4.5); BILIRUBIN,TOTAL 0.3 MG/DL (0.1-1.0); CALCIUM 9.4 MG/DL (8.5-10.1); CREATININE SERUM 0.9 MG/DL (0.60-1.30); POTASSIUM 4.2 MMOL/L (3.6-5.0); TOTAL PROTEIN 7.5 GM/DL (6.4-8.2)
== END 2023-05-25 | disposition home or self-care (01) ==
LOC: ONC 15:24
PROVIDERS: ATTEND Internal Medicine Hematology & Oncology
DX: Z51.11 Encounter for antineoplastic chemotherapy (principal); C61 Malignant neoplasm of prostate; I11.9 Hypertensive heart disease without heart failure
CPT/HCPCS: 80053; 84153; 84403; 85025; 96402; G0463; 99214